=== PATIENT | female | born 1955 | race Caucasian/White ===

== ENCOUNTER 2017-07-18 11:47 | Inpatient (IN) | payer MEDICARE, OTHER ==
[2017-07-18] MEDS ORDERED: SODIUM CHLORIDE 0.9% 500 ML IV STA (12:04)
--- NOTE | 2017-07-18 12:09 | ED ---
Neuro HPI - General Chief Complaint: Neuro Symptoms/Deficit Stated Complaint: Altered Mental Status Time Seen by Provider: 07/18/17 11:47 Source: patient, family, EMS, RN notes reviewed Mode of arrival: EMS Limitations: altered mental status - History of Present Illness Is the patient presenting with stroke symptoms?: No Initial Comments: This is a 7-year-old female history of TIA and CVA also history of a left carotid endarterectomy 3 days ago who was brought in for evaluation for confusion. She apparently woke up confused had difficulty dialing phones in doing normal everyday activities as she normally does there is no noted deficits to her upper or lower extremities and no overt headache. Per EMS she was noted have elevated blood pressure in the 200s over 80s. She probably did not take her medications since being discharged from her surgery. No fevers chills sweats no falls reported - Related Data Home Medications: Home Medications Medication Instructions Recorded Confirmed Adalimumab [Humira] 10 mg SQ DIRECTED 07/18/17 07/18/17 Aspirin 81 mg PO DAILY 07/18/17 07/18/17 Atorvastatin [Lipitor] 40 mg PO HS 07/18/17 07/18/17 Clopidogrel [Plavix] 75 mg PO DAILY 07/18/17 07/18/17 Exenatide [Byetta] 10 mcg SQ BID 07/18/17 07/18/17 FLUoxetine HCL [PROzac] 10 mg PO HS 07/18/17 07/18/17 HYDROcodone/APAP 5-325MG [[place] 1 tab PO Q6HR PRN 07/18/17 07/18/17 5-325] Hydrochlorothiazide [Hydrodiuril] 12.5 mg PO DAILY@0607/18/17 07/18/17 Linagliptin [Tradjenta] 5 mg PO DAILY 07/18/17 07/18/17 Lisinopril [Zestril] 20 mg PO DAILY@0600 07/18/17 07/18/17 Loratadine [Claritin] 10 mg PO DAILY 07/18/17 07/18/17 Pregabalin [Lyrica] 100 mg PO TID 07/18/17 07/18/17 Tolterodine Tartrate [Detrol LA] 4 mg PO DAILY 07/18/17 07/18/17 busPIRone HCl [Buspar] 10 mg PO DAILY 07/18/17 07/18/17 Allergies/Adverse Reactions: Allergies Allergy/AdvReac Type Severity Reaction Status Date / Time No Known Allergies Allergy Verified 07/18/17 12:59 Review of Systems ROS Statement: Those systems with pertinent positive or pertinent negative responses have been documented in the HPI. ROS Other: All systems not noted in ROS Statement are negative. General Exam - General Exam Comments Initial Comments: Is a well-developed well-nourished awake alert but confused patient to date Limitations: altered mental status General appearance: alert, in no apparent distress Head exam: Present: atraumatic, normocephalic, normal inspection Eye exam: Present: normal appearance, PERRL, EOMI. Absent: scleral icterus, conjunctival injection, periorbital swelling ENT exam: Present: normal exam, mucous membranes moist Neck exam: Present: full ROM, other (There is a healing left carotid endarterectomy incision localized erythema with allegra still intact. There is a well-healed right carotid endarterectomy scar noted. No stridor JVD or bruits ). Absent: tenderness, meningismus, lymphadenopathy Respiratory exam: Present: normal lung sounds bilaterally. Absent: respiratory distress, wheezes, rales, rhonchi, stridor Cardiovascular Exam: Present: regular rate, normal rhythm, normal heart sounds. Absent: systolic murmur, diastolic murmur, rubs, gallop, clicks GI/Abdominal exam: Present: soft, normal bowel sounds. Absent: distended, tenderness, guarding, rebound, rigid Rectal exam: Present: deferred Extremities exam: Present: normal inspection, full ROM, normal capillary refill. Absent: tenderness, pedal edema, joint swelling, calf tenderness Back exam: Present: normal inspection Neurological exam: Present: alert, altered, CN II-XII intact Psychiatric exam: Present: normal affect, normal mood Skin exam: Present: warm, dry, intact, normal color. Absent: rash Stroke MDM - Lab Data Result diagrams: 07/18/17 12:03 07/18/17 12:03 Lab Results 07/18/17 07/18/17 07/18/17 Range/Units 12:01 12:03 12:03 WBC 14.3 H (3.8-10.6) k/uL RBC 4.46 (3.80-5.40) m/uL Hgb 13.0 (11.4-16.0) gm/dL Hct 38.1 (34.0-46.0) % MCV 85.6 (80.0-100.0) fL MCH 29.1 (25.0-35.0) pg MCHC 34.0 (31.0-37.0) g/dL RDW 13.0 (11.5-15.5) % Plt Count 211 (150-450) k/uL Neutrophils % 83 % Lymphocytes % 11 % Monocytes % 4 % Eosinophils % 1 % Basophils % 0 % Neutrophils # 11.9 H (1.3-7.7) k/uL Lymphocytes # 1.5 (1.0-4.8) k/uL Monocytes # 0.6 (0-1.0) k/uL Eosinophils # 0.2 (0-0.7) k/uL Basophils # 0.1 (0-0.2) k/uL PT (9.0-12.0) sec INR (<1.2) APTT (22.0-30.0) sec Sodium (137-145) mmol/L Potassium (3.5-5.1) mmol/L Chloride (98-107) mmol/L Carbon Dioxide (22-30) mmol/L Anion Gap mmol/L BUN (7-17) mg/dL Creatinine (0.52-1.04) mg/dL Est GFR (MDRD) Af Amer (>60 ml/min/1.73 sqM) Est GFR (MDRD) Non-Af (>60 ml/min/1.73 sqM) Glucose (74-99) mg/dL POC Glucose (mg/dL) 214 H (75-99) mg/dL POC Glu Freight Conductor ID Alicjaitawais Lisha Calcium (8.4-10.2) mg/dL Total Bilirubin (0.2-1.3) mg/dL AST (14-36) U/L ALT (9-52) U/L Alkaline Phosphatase (38-126) U/L Total Creatine Kinase 42 (30-135) U/L CK-MB (CK-2) 0.2 (0.0-2.4) ng/mL CK-MB (CK-2) Rel Index 0.5 Troponin I 0.034 (0.000-0.034) ng/mL Total Protein (6.3-8.2) g/dL Albumin (3.5-5.0) g/dL 07/18/17 07/18/17 Range/Units 12:03 12:03 WBC (3.8-10.6) k/uL RBC (3.80-5.40) m/uL Hgb (11.4-16.0) gm/dL Hct (34.0-46.0) % MCV (80.0-100.0) fL MCH (25.0-35.0) pg MCHC (31.0-37.0) g/dL RDW (11.5-15.5) % Plt Count (150-450) k/uL Neutrophils % % Lymphocytes % % Monocytes % % Eosinophils % % Basophils % % Neutrophils # (1.3-7.7) k/uL Lymphocytes # (1.0-4.8) k/uL Monocytes # (0-1.0) k/uL Eosinophils # (0-0.7) k/uL Basophils # (0-0.2) k/uL PT 9.9 (9.0-12.0) sec INR 1.0 (<1.2) APTT 22.1 (22.0-30.0) sec Sodium 136 L (137-145) mmol/L Potassium 3.8 (3.5-5.1) mmol/L Chloride 97 L (98-107) mmol/L Carbon Dioxide 27 (22-30) mmol/L Anion Gap 12 mmol/L BUN 10 (7-17) mg/dL Creatinine 0.60 (0.52-1.04) mg/dL Est GFR (MDRD) Af Amer >60 (>60 ml/min/1.73 sqM) Est GFR (MDRD) Non-Af >60 (>60 ml/min/1.73 sqM) Glucose 215 H (74-99) mg/dL POC Glucose (mg/dL) (75-99) mg/dL POC Glu Freight Conductor ID Calcium 9.1 (8.4-10.2) mg/dL Total Bilirubin 0.7 (0.2-1.3) mg/dL AST 23 (14-36) U/L ALT 34 (9-52) U/L Alkaline Phosphatase 111 (38-126) U/L Total Creatine Kinase (30-135) U/L CK-MB (CK-2) (0.0-2.4) ng/mL CK-MB (CK-2) Rel Index Troponin I (0.000-0.034) ng/mL Total Protein 7.2 (6.3-8.2) g/dL Albumin 3.8 (3.5-5.0) g/dL - NIH Stroke Scale 1a. Level of Consciousness: (0) alert 1b. LOC Questions: (0) answers correctly 1c. LOC Commands: (0) performs tasks correctly 2. Best Gaze: (0) normal 3. Visual: (0) no visual loss 4. Facial Palsy: (0) normal symmetrical movement 5a. Motor Arm Left: (0) no drift 5b. Motor Arm Right: (0) no drift 6a. Motor Leg Left: (0) no drift 6b. Motor Leg Right: (0) no drift 7. Limb Ataxia: (0) absent 8. Sensory: (0) normal 9. Best Language: (0) no aphasia 10. Dysarthria: (0) normal 11. Extinction/Inattention: (0) no abnormality - Medical Decision Making Reevaluation is a patient reveals that she is improved actively however the blood pressure remains elevated some this is likely "white coat" syndrome she also however did not take any of her medications including aspirin and Plavix since she was discharged from the hospital. I did discuss the case with Dr. Rebolledo at [facility] did also discuss the case with Dr. Fontanez. The patient will be remaining in this facility and not transferred to [facility]. The patient blood pressure will be better controlled. Male blood pressures are indicated as the automatic cuff is not able to get an accurate read. Patient still has no evidence of any focal deficits NIH stroke scale remained 0. I did discuss the case with Dr. Harley the patient will be admitted. - EKG Data -: EKG Interpreted by Me EKG shows normal: sinus rhythm, axis, intervals, QRS complexes, ST-T waves ( Sinus rhythm rate 77 appear interval 136 QRS duration 84 QT since QTC of 420/ 475 since a normal-appearing EKG.) Past Medical History Past Medical History: CVA/TIA, Diabetes Mellitus, Hyperlipidemia, Hypertension Past Surgical History: Appendectomy, Cholecystectomy, Heart Catheterization, Hysterectomy Additional Past Surgical History / Comment(s): endarterectomy Past Psychological History: Anxiety, Depression Smoking Status: Never smoker Past Alcohol Use History: None Reported Past Drug Use History: Marijuana Course Vital Signs 07/18/17 07/18/17 07/18/17 11:51 13:49 14:32 Temperature 97.6 F Pulse Rate 86 84 83 Respiratory 16 16 18 Rate Blood Pressure 192/113 224/93 O2 Sat by Pulse 98 95 95 Oximetry 07/18/17 07/18/17 07/18/17 15:03 16:13 16:41 Temperature Pulse Rate 88 86 Respiratory 16 Rate Blood Pressure 215/88 208/80 210/68 O2 Sat by Pulse 97 Oximetry 07/18/17 17:25 Temperature Pulse Rate Respiratory Rate Blood Pressure 172/66 O2 Sat by Pulse Oximetry - Reevaluation(s) Reevaluation #1: 07/18/17 17:27 I did reevaluate patient several occasions she is improved with respect her cognition/confusion Disposition Clinical Impression: Confusion, Accelerated hypertension, Noncompliance Disposition: ADMITTED IP TO THIS [facility] Condition: Stable Referrals: Kam Gallegos MD [Primary Care Provider] - 1-2 days
[2017-07-18] MEDS: SODIUM CHLORIDE 0.9% 1,000 ML IV STA ×2 (12:16→12:17)
[2017-07-18 12:21] LABS: Glucose,Whole Blood 214 mg/dL (75-99)
[2017-07-18 12:27] LABS: Basophils # (A) 0.1 k/uL (0-0.2); Basophils % (A) 0 %; Eosinophils # (A) 0.2 k/uL (0-0.7); Eosinophils % (A) 1 %; HCT 38.1 % (34.0-46.0); Lymphocytes # (A) 1.5 k/uL (1.0-4.8); Lymphocytes % (A) 11 %; MCH 29.1 pg (25.0-35.0); MCV 85.6 fL (80.0-100.0); Mean Platelet Volume 7.1; Monocytes # (A) 0.6 k/uL (0-1.0); Monocytes % (A) 4 %; Neutrophils # (A) 11.9 k/uL (1.3-7.7); Neutrophils % (A) 83 %; Platelet Count 211 k/uL (150-450); RBC 4.46 m/uL (3.80-5.40); WBC 14.3 k/uL (3.8-10.6)
[2017-07-18 12:41] LABS: ALT 34 U/L (9-52); AST 23 U/L (14-36); Albumin 3.8 g/dL (3.5-5.0); Alkaline Phosphatase 111 U/L (38-126); Anion Gap 12 mmol/L; Blood Urea Nitrogen 10 mg/dL (7-17); Calcium 9.1 mg/dL (8.4-10.2); Carbon Dioxide 27 mmol/L (22-30); Chloride 97 mmol/L (98-107); Glucose 215 mg/dL (74-99); Potassium 3.8 mmol/L (3.5-5.1); Sodium 136 mmol/L (137-145); Total Bilirubin 0.7 mg/dL (0.2-1.3); Total Protein 7.2 g/dL (6.3-8.2)
--- NOTE | 2017-07-18 12:46 | CT ---
EXAMINATION TYPE: CT brain wo con DATE OF EXAM: 07/18/2017 COMPARISON: Previous study dated 07/17/2011. HISTORY: Altered mental status CT DLP: 988.40 mGycm Automated exposure control for dose reduction was used. FINDINGS: There is evidence of previous infarction involving the right frontal and parietal lobes, unchanged fr om previous. Central structures are midline. There is no evidence of hydrocephalus. No acute focal lesion, mass ef fect or midline shift is seen. I do not see evidence of intracranial blood. There is mucoperiosteal thickening involving the sphenoid sinuses bilaterally. The remainder the para nasal sinuses and mastoids are clear. No depressed skull fracture is seen. IMPRESSION: 1. NO ACUTE INTRACRANIAL ABNORMALITY. 2. EVIDENCE OF PREVIOUS RIGHT FRONTAL AND RIGHT PARIETAL INFARCTS. 3. CHRONIC MUCOPERIOSTEAL THICKENING INVOLVING THE SPHENOID SINUSES BILATERALLY.
[2017-07-18 12:51] LABS: Partial Thromboplastin Time 22.1 sec (22.0-30.0); Prothrombin Time 9.9 sec (9.0-12.0)
--- NOTE | 2017-07-18 12:55 | XR ---
EXAMINATION TYPE: XR chest 2V DATE OF EXAM: 07/18/2017 HISTORY: altered mental status. REFERENCE: NONE. FINDINGS: The heart is upper limits of normal in size. The lungs are clear. Pleural spaces are clear. IMPRESSION: BORDERLINE CARDIOMEGALY.
[2017-07-18 13:00] LABS: Creatine Kinase MB 0.2 ng/mL (0.0-2.4); Troponin I 0.034 ng/mL (0.000-0.034)
[2017-07-18] MEDS ORDERED: ENALAPRILAT 1.25 MG/ML 1 ML VIAL IVP STA (14:28)
[2017-07-18] MEDS ORDERED: LABETALOL 5 MG/ML VIAL MDV IVP STA (16:27)
[2017-07-18] MEDS ORDERED: CLOPIDOGREL 75 MG TAB PO STA (17:03)
[2017-07-18] MEDS ORDERED: ASPIRIN 81 MG PO STA (17:03)
[2017-07-18] MEDS ORDERED: hydrALAZINE HCL 20 MG/ML 1 ML VIAL IVP STA (17:04)
[2017-07-18] MEDS ORDERED: NALOXONE 0.4 MG/ML 1 ML VIAL IV PRN (17:34)
[2017-07-18] MEDS ORDERED: ACETAMINOPHEN TAB 325 MG TAB PO PRN (17:34)
[2017-07-18] MEDS ORDERED: HYDROcodone/APAP 5-325MG 1 EACH TAB PO PRN (17:36)
[2017-07-18 18:27] VITALS: BMI 44.5
[2017-07-18] MEDS: SODIUM CHLORIDE 0.9% 1,000 ML IV SCH (18:34)
[2017-07-18 18:35] VITALS: RESP 18
[2017-07-18] MEDS: PREGABALIN 100 MG CAP PO SCH (20:17)
[2017-07-18] MEDS: EXENATIDE 10 MCG SQ SCH (20:36)
[2017-07-18] MEDS ORDERED: FLUoxetine HCL 10 MG CAP PO SCH (21:00)
[2017-07-18] MEDS ORDERED: ATORVASTATIN 40 MG TAB PO SCH (21:00)
[2017-07-18 21:01] LABS: Glucose,Whole Blood 239 mg/dL (75-99)
[2017-07-18] MEDS ORDERED: traZODone HCL 100 MG TAB PO PRN (21:49)
[2017-07-18] MEDS: INSULIN ASPART 100 UNIT/ML 1 ML 10 ML VIAL SQ SCH (23:00)
[2017-07-19 02:06] LABS: Glucose,Whole Blood 186 mg/dL (75-99)
[2017-07-19 05:56] LABS: Glucose,Whole Blood 181 mg/dL (75-99)
[2017-07-19] MEDS ORDERED: HYDROCHLOROTHIAZIDE 12.5 MG CAP PO SCH (06:00)
[2017-07-19] MEDS ORDERED: LISINOPRIL 20 MG TAB PO SCH (06:00)
[2017-07-19] MEDS: INSULIN ASPART 100 UNIT/ML 1 ML 10 ML VIAL SQ SCH ×3 (06:18→17:25)
[2017-07-19] MEDS: EXENATIDE 10 MCG SQ SCH (08:59)
[2017-07-19] MEDS ORDERED: OXYBUTYNIN XL 5 MG TAB.ER.24 PO SCH (09:00)
[2017-07-19] MEDS ORDERED: busPIRone HCl 10 MG TAB PO SCH (09:00)
[2017-07-19] MEDS ORDERED: LINAGLIPTIN 5 MG TABLET PO SCH (09:00)
[2017-07-19] MEDS ORDERED: LORATADINE 10 MG TAB PO SCH (09:00)
[2017-07-19] MEDS ORDERED: CLOPIDOGREL 75 MG TAB PO SCH (09:00)
[2017-07-19] MEDS ORDERED: ASPIRIN 81 MG PO SCH (09:00)
[2017-07-19] MEDS: PREGABALIN 100 MG CAP PO SCH ×2 (09:02→15:19)
[2017-07-19 11:47] LABS: Glucose,Whole Blood 256 mg/dL (75-99)
--- NOTE | 2017-07-19 12:11 | P.HPIM ---
History of Present Illness H&P Date: 07/18/17 Chief Complaint: Acute confusion HISTORY OF PRESENT ILLNESS: 61-year-old female patient of Dr. Kam Gallegos with chronic stable medical conditions include CVA/TIA, diabetes mellitus, hyperlipidemia, hypertension, left carotid endarterectomy on 07/15/2017, presented to the emergency department to be evaluated for acute confusion. Had endarterectomy as mentioned previously was discharged on , 07/16/2017, on Thursday patient was sleeping most of the day, missed most of her medications, and did not eat much at all. Was confused unable to operate her cellular phone, and family found that she was not her usual self, seeming more forgetful and disoriented. Family was concerned that there was a problem with her recent procedure. EMS was called and found the patient to have a blood pressure in the 200s and was subsequently brought in on Thursday for further evaluation of acute confusion and accelerated hypertension. REVIEW OF SYSTEMS GEN.: [ Tired appearing ] EYES: [Transient blurred vision] HEENT: [None] NECK: [Recent left carotid endarterectomy] RESPIRATORY: [Some shortness of breath with activity] CARDIOVASCULAR: [None] GASTROINTESTINAL: [None] GENITOURINARY: [None] MUSCULOSKELETAL: [Back pain, generalized pain] LYMPHATICS: [None] HEMATOLOGICAL: [None] PSYCHIATRY: [Anxiety and depression] NEUROLOGICAL: [Numbness and tingling to bilateral fingers and feet.] PAST MEDICAL HISTORY Past medical history: CVA/TIA, diabetes mellitus, hyperlipidemia, hypertension, Past surgical history: Appendectomy, cholecystectomy, heart catheterization, hysterectomy, carotid endarterectomy Past psychological history: Anxiety and depression SOCIAL HISTORY: Additional psychological/social history: None Smoking use history: Never Alcohol use history: Denies Drug use history: Daily marijuana use Marital status: Living situation: Lives alone 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 ALLERGIES: NO KNOWN ALLERGIES HOME MEDICATION: Trazodone 100 mg by mouth at bedtime when necessary Pregabalin 100 mg by mouth 3 times a day Linagliptin 5 mg by mouth daily Lisinopril 20 mg by mouth daily Hydrocodone 5-325 mg 1 tablet by mouth every 6 hours when necessary Prozac 10 mg by mouth at bedtime Clopidogrel 75 mg by mouth daily Hydrochlorothiazide 12.5 mg by mouth daily Atorvastatin 40 mg by mouth at bedtime Detrol LA 4 mg by mouth daily Tolerated diet 10 mg by mouth daily She marital 10 mg subcu as directed BuSpar 10 mg by mouth daily Byetta 1010 g subcu twice a day Aspirin 81 mg by mouth daily VITAL SIGNS: [Temperature 98.6, pulse 88, respiratory rate 18, blood pressure 160/69, oxygen saturation 96% on room air.. BMI 43.6] GENERAL: [well built, sitting up, comfortable]. EYES: [Pupils equal. Conjunctiva airam]l. HEENT: [External appearance of nose and ears normal, oral cavity grossly normal] . NECK: [JVD not raised; masses not palpable]. HEART: [First and second heart sounds are normal; no edema]. LUNGS:[ Respiratory rate normal; clear to auscultation]. ABDOMEN: [Soft, nontender, liver spleen not palpable, no masses palpable]. LYMPHATICS: [No lymph nodes palpable in the axilla and neck]. PSYCH: [Alert and oriented x3; mood and affect airam]l. NEUROLOGICAL: [Cranial nerves grossly intact; no facial asymmetry, power and sensation grossly intact]. INTEGUMENT: Left neck with carotid scar that's healing well. INVESTIGATIONS: White blood cell count 14.3, sodium 136, chloride 97, Accu-Cheks noted. Chest x-ray: Borderline cardiomegaly CT of the brain: No acute intracranial abnormality, evidence of previous right frontal and right parietal infarcts, chronic mucoperiosteal thickening involving the sphenoid sinuses bilaterally ASSESSMENT: -Acute delirium in a patient who had a recent left carotid endarterectomy, and missed some of her meals medications and fluids as well as due to uncontrolled pressure -Leukocytosis likely secondary to recent procedure, no fever and no white count no evidence of infection. -Coronary artery disease and patient with a history of stent placement -Diabetes type 2 -Hyperlipidemia -Essential hypertension, uncontrolled -Morbid obesity body mass index 43.6 -Anxiety depression not otherwise specified PLAN: Home medications reordered, serial neuro checks, tight blood pressure control. Plan of care discussed at the bedside with patient, she is in agreement. We'll follow closely. [employer] WORKER STATEMENT: Patient was seen and examined by nurse practitioner Divya Mena and all elements of the case were discussed with attending Dr. Harley. Past Medical History Past Medical History: CVA/TIA, Diabetes Mellitus, Hyperlipidemia, Hypertension History of Any Multi-Drug Resistant Organisms: None Reported Past Surgical History: Appendectomy, Cholecystectomy, Heart Catheterization, Hysterectomy Additional Past Surgical History / Comment(s): endarterectomy; bone spurs removedx2 Past Anesthesia/Blood Transfusion Reactions: No Reported Reaction Past Psychological History: Anxiety, Depression Smoking Status: Never smoker Past Alcohol Use History: None Reported Past Drug Use History: Marijuana Additional Drug Use History / Comment(s): uses marijuana daily Medications and Allergies Home Medications Medication Instructions Recorded Confirmed Type Adalimumab [Humira] 10 mg SQ DIRECTED 07/18/17 07/18/17 History Aspirin 81 mg PO DAILY 07/18/17 07/18/17 History Atorvastatin [Lipitor] 40 mg PO HS 07/18/17 07/18/17 History Clopidogrel [Plavix] 75 mg PO DAILY 07/18/17 07/18/17 History Exenatide [Byetta] 10 mcg SQ BID 07/18/17 07/18/17 History FLUoxetine HCL [PROzac] 10 mg PO HS 07/18/17 07/18/17 History HYDROcodone/APAP 5-325MG [[place] 1 tab PO Q6HR PRN 07/18/17 07/18/17 History 5-325] Hydrochlorothiazide [Hydrodiuril] 12.5 mg PO DAILY@0600 07/18/17 07/18/17 History Linagliptin [Tradjenta] 5 mg PO DAILY 07/18/17 07/18/17 History Loratadine [Claritin] 10 mg PO DAILY 07/18/17 07/18/17 History Pregabalin [Lyrica] 100 mg PO TID 07/18/17 07/18/17 History Tolterodine Tartrate [Detrol LA] 4 mg PO DAILY 07/18/17 07/18/17 History busPIRone HCl [Buspar] 10 mg PO DAILY 07/18/17 07/18/17 History traZODone HCL [Desyrel] 100 mg PO HS PRN 07/18/17 07/18/17 History Lisinopril-Hctz 20-12.5 mg 1 tab PO BID #60 tab 07/19/17 Rx [Zestoretic 20-12.5] Allergies Allergy/AdvReac Type Severity Reaction Status Date / Time No Known Allergies Allergy Verified 07/18/17 12:59 Physical Exam Vitals: Vital Signs Temp Pulse Pulse Resp BP BP Pulse Ox 07/18/17 18:34 98.6 F 88 18 168/69 96 07/18/17 17:25 172/66 07/18/17 16:41 210/68 07/18/17 16:13 86 16 208/80 97 07/18/17 15:03 88 215/88 07/18/17 14:32 83 18 224/93 95 07/18/17 13:49 84 16 95 07/18/17 11:51 97.6 F 86 16 192/113 98 Intake and Output 07/18/17 07/18/17 07/18/17 06:59 14:59 22:59 Other: Weight 103.419 kg 103.419 kg Patient Weight 07/19/17 06:59 Weight 103.419 kg Results CBC & Chem 7: 07/18/17 12:03 07/18/17 12:03 Labs: Abnormal Lab Results - Last 24 Hours (Table) 07/18/17 07/18/17 07/18/17 Range/Units 12:01 12:03 12:03 WBC 14.3 H (3.8-10.6) k/uL Neutrophils # 11.9 H (1.3-7.7) k/uL Sodium 136 L (137-145) mmol/L Chloride 97 L (98-107) mmol/L Glucose 215 H (74-99) mg/dL POC Glucose (mg/dL) 214 H (75-99) mg/dL 07/18/17 Range/Units 20:59 WBC (3.8-10.6) k/uL Neutrophils # (1.3-7.7) k/uL Sodium (137-145) mmol/L Chloride (98-107) mmol/L Glucose (74-99) mg/dL POC Glucose (mg/dL) 239 H (75-99) mg/dL Thrombosis Risk Factor Assmnt - Choose All That Apply Each Factor Represents 1 point: Age 41-60 years, Obesity (BMI >25) Each Risk Factor Represents 2 Points: Major surgery Thrombosis Risk Factor Assessment Total Risk Factor Score: 4 Thrombosis Risk Factor Assessment Level: Moderate Risk
[2017-07-19] MEDS: SODIUM CHLORIDE 0.9% 1,000 ML IV SCH (15:44)
[2017-07-19] MEDS ORDERED: LISINOPRIL-HCTZ 20-12.5 MG 1 EACH TAB PO STA (15:51)
[2017-07-19 17:09] VITALS: BP 156/83; PULSE 79; TEMP 97.5
[2017-07-19 17:24] LABS: Glucose,Whole Blood 130 mg/dL (75-99)
--- NOTE | 2017-07-19 17:28 | DS ---
DISCHARGE SUMMARY DATE OF ADMISSION: 07/18/17. DATE OF DISCHARGE: 07/19/17. FINAL DIAGNOSES: 1. Acute delirium/metabolic encephalopathy from uncontrolled blood pressure from patient having missed taking medications. 2. Leukocytosis likely reactive to recent procedure. Clinically no evidence of infection. 3. Coronary artery disease with prior history of stent. 4. Diabetes mellitus type 2. 5. Hyperlipidemia. 6. Essential hypertension uncontrolled. 7. Morbid obesity BMI 43.6. 8. Anxiety, depression, not otherwise specified. HOSPITAL COURSE: This is a pleasant lady who was discharged after a carotid endarterectomy on July 16, 2017 from [facility]. The patient is rather sleepy and did not take her medications. EMS was called after she was slightly confused. Blood pressure is running up to 200 systolic. Presented to the ER here. No focal signs were present. Patient is put back on blood pressure medications. Today the last blood pressure recorded was 162/74. The patient's Prinivil and hydrochlorothiazide dose is being doubled. She getting a pill before she is leaving. Care was discussed in detail with the patient. The patient is AO x3. The patient is told the importance of taking her medications and keeping blood pressure down. The patient should see a dietitian for weight loss measures and/or her family doctor. The patient's CT scan of the brain was unremarkable. EXAM: Lungs are clear. Cardiovascular 1st and 2nd sounds normal. Incision on neck healing well. DISCHARGE MEDICATIONS: 1. Humira 10 mg subcu as directed. 2. Aspirin 81 mg daily. 3. Lipitor 40 mg q.h.s. 4. Plavix 75 mg a day. 5. Byetta 10 mg subcu b.i.d. 6. Prozac 10 mg p.o. q.h.s. 7. [place] 5 one tab q.6h p.r.n. 8. Hydrochlorothiazide discontinued. 9. Tradjenta 5 mg p.o. daily. 10.Claritin 10 mg p.o. daily. 11. 100 mg p.o. t.i.d. 12.Detrol LA 4 mg p.o. daily. 13.BuSpar 10 mg p.o. daily. 14.Desyrel 100 mg q.h.s. p.r.n. 15.Zestoretic 20/12.5 one tab p.o. b.i.d. FOLLOW UP: With Dr. Gallegos in 2 days. Patient to keep a close eye on the blood pressure. Patient to follow up with her vascular surgeon. Discussion and discharge planning more than 35 minutes. MMDEVANL / IJN: [id number] /
--- NOTE | 2017-07-22 10:34 | CDI ---
Last Revision, June 2017 Documentation Clarification Form Date: 07/22/2017 10:27:00 AM From: Shahla Jackson Phone: If you have a question regarding this query, please contact Claudia Goodwin Electrical Logger at [phone]. Admit Date: 07/19/2017 1:15:00 PM Patient Name: Radha Amanda Visit Number: [id number] Discharge Date: ATTENTION: The Clinical Documentation Specialists (CDI) and [facility] Coding Staff appreciate your assistance in clarifying documentation. Please respond to the clarification below the line at the bottom and electronically sign. The CDI & [facility] Coding staff will review the response and follow-up if needed. Please note: Queries are made part of the Legal Health Record. If you have any questions, please contact the author of this message via ITS. Dr. Janusz Harley Uncontrolled hypertension is documented in your discharge summary. BP on day of admission: 192/113, 224/93, 215/88, 208/80, 210/68, 182/66 Please specify the type of uncontrolled hypertension such as: Crisis Emergency Urgency Other Clinically unable to further specify Unknown Please continue to document in your progress notes and discharge summary in order to capture severity of illness and risk of mortality. Include clinical findings that support your diagnosis. hypertensive urgency/encepapathy , present on admission MTDD
== END 2017-07-19 17:58 | disposition home or self-care (01) | DRG 304 ==
LOC: EC 11:47 → 6SEL 17:37 → OBSVTOIN 07-19 13:15
PROVIDERS: ADMIT Hospitalist; ATTEND Hospitalist
DX: I16.0 Hypertensive urgency (principal); G93.41 Metabolic encephalopathy; E66.01 Morbid (severe) obesity due to excess calories; D72.829 Elevated white blood cell count, unspecified; E11.9 Type 2 diabetes mellitus without complications; E78.5 Hyperlipidemia, unspecified; Z68.41 Body mass index [BMI] 40.0-44.9, adult; I10 Essential (primary) hypertension; F41.8 Other specified anxiety disorders; I25.10 Atherosclerotic heart disease of native coronary artery without angina pectoris; F32.9 Major depressive disorder, single episode, unspecified; Z90.710 Acquired absence of both cervix and uterus; Z86.73 Personal history of transient ischemic attack (TIA), and cerebral infarction without residual deficits; Z79.02 Long term (current) use of antithrombotics/antiplatelets; Z79.82 Long term (current) use of aspirin; Z79.84 Long term (current) use of oral hypoglycemic drugs; Z79.899 Other long term (current) drug therapy; Z95.5 Presence of coronary angioplasty implant and graft; Z90.49 Acquired absence of other specified parts of digestive tract; Z91.19 Patient's noncompliance with other medical treatment and regimen
CPT/HCPCS: 36415; 70450; 71046; 80053; 82550; 82553; 84484; 85025; 85610; 85730; 93005; 96361; 96374; 96375; 99285

== ENCOUNTER → 2017-09-08 | Outpatient (CLI) | payer MEDICARE, OTHER ==
--- NOTE | 2017-09-08 13:34 | MR ---
EXAMINATION TYPE: MR brain wo/w con DATE OF EXAM: 09/08/2017 COMPARISON: Correlation CT brain 07/18/2017 and carotid ultrasound 03/08/2015. HISTORY: 62-year-old female with history of Stroke. TECHNIQUE: Multiplanar, multisequence images of the brain and brainstem were acquired before and aft er administration of 10 mL IV Gadavist. Diffusion weighted imaging is performed. FINDINGS: No evidence for acute infarction, hemorrhage, mass, mass effect, midline shift, herniation, effacemen t of basal cisterns, or extra-axial fluid collection. The ventricles and sulci are age-appropriate. The visualized upper cervical, petrous and proximal cavernous segments of the right internal carotid artery show either limited or absent flow void. There is some enhancement seen along this vessel on p ostcontrast series. Otherwise, major intracranial flow voids are intact. Redemonstrated areas of encephalomalacia in the posterior right frontal lobe and posterior right shonda etal lobe. There is surrounding increased T2 signal compatible with gliosis. Additional area of corti marcos gliosis measuring 1.4 cm is present along the anterolateral right frontal lobe just adjacent. Midline structures demonstrate normal morphology. The craniocervical junction is normal. Post contrast images demonstrate no evidence of pathologic enhancement. Dural venous sinuses are pat ent. Trace mucosal thickening ethmoid air cells and right maxillary sinus. Leftward nasal septal deviation . IMPRESSION: 1. Absent or limited right ICA flow void up to the proximal cavernous segment. Findings could reflect a high-grade proximal ICA stenosis or occlusion. Correlate with prior workup. This is likely chronic given findings on the carotid ultrasound of 03/08/2015. 2. Old posterior right frontal and posterior right parietal infarcts. No acute intracranial body seen .
== END | disposition home or self-care (01) ==
LOC: RADMRIMAIN 11:46
PROVIDERS: ATTEND Pediatrics
DX: Z09 Encounter for follow-up examination after completed treatment for conditions other than malignant neoplasm (principal); Z86.73 Personal history of transient ischemic attack (TIA), and cerebral infarction without residual deficits
CPT/HCPCS: 70553; A9581

== ENCOUNTER → 2017-09-17 | Outpatient (CLI) | payer MEDICARE, OTHER ==
--- NOTE | 2017-09-17 16:57 | CONS ---
CONSULTATION DATE OF SERVICE: 09/17/2017 62-year-old lady has [facility] for obstructive sleep apnea- hypopnea syndrome. HISTORY OF PRESENT ILLNESS/SLEEP-WAKE EVALUATION: The patient has been diagnosed with obstructive sleep apnea in 2002, was started on treatment with CPAP, used it for several years and then stopped using equipment because did not feel comfortable with that. Did not sleep well with that. Presently her sleep schedule from 11:00 p.m. to 11:00 am. Sometimes she has problem with falling asleep. She sleeps in different positions. No TV in bedroom. She wakes up from sleep around 3 times with 3 episodes of nocturia. She also has dry mouth and heartburn during the sleep. In the morning she wakes up tired, has difficulties to pay attention, falling asleep during the day. Worry about her sleep. She has problem with memory, concentration, depression, anxiety, sexual dysfunction. [place] Sleepiness Scale is 4. PAST MEDICAL HISTORY: Positive for hypertension, 2 strokes with the last one in 2005 without any significant residual deficit. PAST SURGICAL HISTORY: Cholecystectomy, appendectomy, bilateral carotid artery surgery with stent insertions. MEDICATIONS: Trazodone, Celexa, Claritin, lisinopril, Detrol. The patient has 1 medication which she does not remember for the blood pressure. Another medication is hydrochlorothiazide. SOCIAL HISTORY: Negative for smoking or using alcohol. FAMILY HISTORY: Hypertension, diabetes, snoring. REVIEW OF SYSTEMS: No chest pain. No shortness of breath. No headache. No feeling of any weakness in the body. No dizziness. PHYSICAL EXAM: GENERAL: 62-year-old lady without distress. VITAL SIGNS: BP was checked several times. On the left arm 193/58. HR 72, RR 16, height 5 foot 1, weight 233.4, temperature 98, oxygen saturation room air 95%. HEENT: PERRLA, EOMI, evaluation of oropharynx showed extremely low position of soft palate. Mallampati IV. NECK: Supple, no JVD. Thyroid is not palpable. LUNGS: Clear to percussion and to auscultation. Good air exchange. No wheezing or rhonchi. HEART: S1, S2 regular. No murmurs, gallops, or rubs. ABDOMEN: Obese. Soft and nontender. Bowel sounds are present. No organomegaly appreciated. EXTREMITIES: No clubbing or cyanosis. ACCOUNT RELATIONSHIP MANAGER: Awake, alert, and oriented X3. Cranial nerves 2 to 7 intact. There is no fasciculation or atrophy. noted. No focal deficits observed. IMPRESSION: 1. Snoring, witnessed episodes of stopped breathing during the sleep in the hospital, extremely low position of soft palate, wide neck and history of obstructive sleep apnea in the past. Obstructive sleep apnea-hypopnea syndrome. 2. Obesity, BMI 44.0. 3. Hypertension, not in good control with 2 medications. 4. Allergy. 5. History of stroke x2. 6. Status post carotid artery surgery with stent insertion bilaterally. 7. Status post cholecystectomy. 8. Status post appendectomy. PLAN: 1. Polysomnography for evaluation of patient's breathing during sleep. 2. CPAP/BiPAP titration if sleep study confirms obstructive sleep apnea-hypopnea syndrome. 3. Preferable position during sleep on the side. 4. No driving if patient feels any sleepiness. Patient is aware of civil and criminal liability for unsafe driving. 5. I will see patient for follow up visit to explain results of testing and following plan. Thank you very much for referring this patient for consultation. Sincerely, Gavino Kemp MD, PhD, FAASM Diplomat of [employer] [facility] [place] MMODL / ATIFN: [id number] /
== END | disposition home or self-care (01) ==
LOC: SLEEP 14:57
PROVIDERS: ATTEND Internal Medicine
DX: G47.33 Obstructive sleep apnea (adult) (pediatric) (principal); E66.9 Obesity, unspecified; I10 Essential (primary) hypertension; T78.40XA Allergy, unspecified, initial encounter; Z95.5 Presence of coronary angioplasty implant and graft; Z90.49 Acquired absence of other specified parts of digestive tract; Z68.41 Body mass index [BMI] 40.0-44.9, adult; Z86.69 Personal history of other diseases of the nervous system and sense organs; Z79.899 Other long term (current) drug therapy
CPT/HCPCS: 99211

== ENCOUNTER 2017-10-13 19:53 | Inpatient (IN) | payer MEDICARE, OTHER ==
[2017-10-13 20:00] LABS: Glucose,Whole Blood 226 mg/dL (75-99)
[2017-10-13] MEDS ORDERED: SODIUM CHLORIDE 0.9% 1,000 ML IV STA (20:11)
--- NOTE | 2017-10-13 20:14 | ED ---
General Adult HPI - General Chief complaint: Neuro Symptoms/Deficit Stated complaint: WEAKNESS Time Seen by Provider: 10/13/17 20:05 Source: patient, EMS, RN notes reviewed Mode of arrival: EMS Limitations: no limitations - History of Present Illness Initial comments: Patient is a pleasant 62-year-old female presenting to the emergency Department with complaints of generalized weakness. Onset of symptoms was this morning and has been consistent all day. Patient had similar symptoms a couple months ago with unclear etiology. Patient feels weak all over, somewhat more so on the legs. Patient does have a history of sciatica however is not bothering her much at this time. No otherwise lower back pain. Patient has been fatigued and sleeping all day. Patient does feel achy all over. No isolated area of weakness. No confusion. No fevers. Mild cough. Patient did have a couple episodes of near falls however never fell. - Related Data Home Medications Medication Instructions Recorded Confirmed Adalimumab [Humira] 10 mg SQ Q14D 07/18/17 10/13/17 Atorvastatin [Lipitor] 40 mg PO HS 07/18/17 10/13/17 Clopidogrel [Plavix] 75 mg PO DAILY 07/18/17 10/13/17 Exenatide [Byetta] 10 mcg SQ BID 07/18/17 10/13/17 FLUoxetine HCL [PROzac] 10 mg PO HS 07/18/17 10/13/17 HYDROcodone/APAP 5-325MG [Penelope 1 tab PO Q6HR PRN 07/18/17 10/13/17 5-325] Linagliptin [Tradjenta] 5 mg PO DAILY 07/18/17 10/13/17 Loratadine [Claritin] 10 mg PO DAILY 07/18/17 10/13/17 Pregabalin [Lyrica] 100 mg PO TID 07/18/17 10/13/17 Tolterodine Tartrate [Detrol LA] 4 mg PO DAILY 07/18/17 10/13/17 busPIRone HCl [Buspar] 10 mg PO DAILY 07/18/17 10/13/17 traZODone HCL [Desyrel] 100 mg PO HS PRN 07/18/17 10/13/17 Previous Rx's Medication Instructions Recorded Lisinopril-Hctz 20-12.5 mg 1 tab PO BID #60 tab 07/19/17 [Zestoretic 20-12.5] Allergies Allergy/AdvReac Type Severity Reaction Status Date / Time No Known Allergies Allergy Verified 10/13/17 20:17 Review of Systems ROS Statement: Those systems with pertinent positive or pertinent negative responses have been documented in the HPI. ROS Other: All systems not noted in ROS Statement are negative. Constitutional: Denies: fever, chills Eyes: Denies: eye pain ENT: Denies: ear pain, throat pain, congestion Respiratory: Reports: cough. Denies: dyspnea Cardiovascular: Denies: chest pain Endocrine: Reports: fatigue Gastrointestinal: Denies: abdominal pain Genitourinary: Denies: dysuria Musculoskeletal: Denies: back pain Skin: Denies: rash Neurological: Reports: weakness. Denies: headache, numbness, paresthesias, confusion Past Medical History Past Medical History: CVA/TIA, Diabetes Mellitus, Hyperlipidemia, Hypertension History of Any Multi-Drug Resistant Organisms: None Reported Past Surgical History: Appendectomy, Cholecystectomy, Heart Catheterization, Hysterectomy Additional Past Surgical History / Comment(s): endarterectomy; bone spurs removedx2 Past Anesthesia/Blood Transfusion Reactions: No Reported Reaction Past Psychological History: Anxiety, Depression Smoking Status: Never smoker Past Alcohol Use History: None Reported Past Drug Use History: Marijuana General Exam Limitations: no limitations General appearance: alert, in no apparent distress Head exam: Present: atraumatic, normocephalic Eye exam: Present: normal appearance, PERRL, EOMI. Absent: nystagmus ENT exam: Present: normal oropharynx Neck exam: Present: normal inspection. Absent: tenderness, meningismus Respiratory exam: Present: normal lung sounds bilaterally Cardiovascular Exam: Present: regular rate, normal rhythm GI/Abdominal exam: Present: soft. Absent: tenderness Extremities exam: Present: normal inspection, full ROM. Absent: tenderness, pedal edema, calf tenderness Back exam: Present: normal inspection. Absent: tenderness, vertebral tenderness Neurological exam: Present: alert, oriented X3, CN II-XII intact Expanded Neurological exam: Present: protecting the airway Patient oriented to: Present: person, place, time Speech: Present: fluid speech Cranial nerves: EOM's Intact: Normal, Facial Sensation: Normal Cerebellar function: Finger to Nose: Normal Sensory exam: Upper Extremity Light Touch: Normal, Lower Extremity Light Touch: Normal Motor strength exam: RUE: 5, LUE: 5, RLE: 4, LLE: 4 Eye Response: (4) open spontaneously Motor Response: (6) obeys commands Verbal Response: (5) oriented Psychiatric exam: Present: normal affect, normal mood Skin exam: Present: normal color Course Vital Signs 10/13/17 10/13/17 10/13/17 20:05 20:20 20:36 Temperature 97.5 F L Pulse Rate 63 58 L 59 L Respiratory 18 18 18 Rate Blood Pressure 196/79 213/86 173/70 O2 Sat by Pulse 93 L 99 99 Oximetry 10/13/17 20:38 Temperature Pulse Rate 60 Respiratory 18 Rate Blood Pressure 165/70 O2 Sat by Pulse 99 Oximetry EKG Findings - EKG Comments: EKG Findings:: normal sinus rhythm 60. OH 150. QRS 84. QT 476. QTc 476. Normal axis. Normal QRS. No acute ST change. Medical Decision Making - Medical Decision Making Patient reevaluated and unchanged. Nurse states patient has had difficulty with near falls trying to use the bathroom. Case was discussed in detail with practitioner Patito onofre, who will admit for Dr. Yeh, covering for Dr. martins, who admits for Dr. Gallegos. - Lab Data Result diagrams: 10/13/17 20:05 10/13/17 20:05 Lab Results 10/13/17 10/13/17 10/13/17 Range/Units 19:57 20:05 20:05 WBC 12.2 H (3.8-10.6) k/uL RBC 5.03 (3.80-5.40) m/uL Hgb 14.1 (11.4-16.0) gm/dL Hct 40.9 (34.0-46.0) % MCV 81.4 (80.0-100.0) fL MCH 28.1 (25.0-35.0) pg MCHC 34.5 (31.0-37.0) g/dL RDW 13.4 (11.5-15.5) % Plt Count 215 (150-450) k/uL Neutrophils % 69 % Lymphocytes % 20 % Monocytes % 5 % Eosinophils % 4 % Basophils % 0 % Neutrophils # 8.4 H (1.3-7.7) k/uL Lymphocytes # 2.4 (1.0-4.8) k/uL Monocytes # 0.5 (0-1.0) k/uL Eosinophils # 0.5 (0-0.7) k/uL Basophils # 0.0 (0-0.2) k/uL PT (9.0-12.0) sec INR (<1.2) APTT (22.0-30.0) sec Sodium (137-145) mmol/L Potassium (3.5-5.1) mmol/L Chloride (98-107) mmol/L Carbon Dioxide (22-30) mmol/L Anion Gap mmol/L BUN (7-17) mg/dL Creatinine (0.52-1.04) mg/dL Est GFR (CKD-EPI)AfAm (>60 ml/min/1.73 sqM) Est GFR (CKD-EPI)NonAf (>60 ml/min/1.73 sqM) Glucose (74-99) mg/dL POC Glucose (mg/dL) 226 H (75-99) mg/dL POC Glu Cyber Instructor Shahla Hunt Calcium (8.4-10.2) mg/dL Magnesium (1.6-2.3) mg/dL Total Bilirubin (0.2-1.3) mg/dL AST (14-36) U/L ALT (9-52) U/L Alkaline Phosphatase (38-126) U/L Total Creatine Kinase 48 (30-135) U/L CK-MB (CK-2) 0.4 (0.0-2.4) ng/mL CK-MB (CK-2) Rel Index 0.8 Troponin I <0.012 (0.000-0.034) ng/mL Total Protein (6.3-8.2) g/dL Albumin (3.5-5.0) g/dL TSH (0.465-4.680) mIU/L Free T4 (0.78-2.19) ng/dL Free T3 pg/mL (2.8-5.3) pg/ml 10/13/17 10/13/17 Range/Units 20:05 20:05 WBC (3.8-10.6) k/uL RBC (3.80-5.40) m/uL Hgb (11.4-16.0) gm/dL Hct (34.0-46.0) % MCV (80.0-100.0) fL MCH (25.0-35.0) pg MCHC (31.0-37.0) g/dL RDW (11.5-15.5) % Plt Count (150-450) k/uL Neutrophils % % Lymphocytes % % Monocytes % % Eosinophils % % Basophils % % Neutrophils # (1.3-7.7) k/uL Lymphocytes # (1.0-4.8) k/uL Monocytes # (0-1.0) k/uL Eosinophils # (0-0.7) k/uL Basophils # (0-0.2) k/uL PT 9.9 (9.0-12.0) sec INR 1.0 (<1.2) APTT 19.8 L (22.0-30.0) sec Sodium 138 (137-145) mmol/L Potassium 4.9 (3.5-5.1) mmol/L Chloride 100 (98-107) mmol/L Carbon Dioxide 24 (22-30) mmol/L Anion Gap 14 mmol/L BUN 19 H (7-17) mg/dL Creatinine 0.80 (0.52-1.04) mg/dL Est GFR (CKD-EPI)AfAm >90 (>60 ml/min/1.73 sqM) Est GFR (CKD-EPI)NonAf 80 (>60 ml/min/1.73 sqM) Glucose 236 H (74-99) mg/dL POC Glucose (mg/dL) (75-99) mg/dL POC Glu Cyber Instructor ID Calcium 9.2 (8.4-10.2) mg/dL Magnesium 2.1 (1.6-2.3) mg/dL Total Bilirubin 0.7 (0.2-1.3) mg/dL AST 47 H (14-36) U/L ALT 27 (9-52) U/L Alkaline Phosphatase 106 (38-126) U/L Total Creatine Kinase (30-135) U/L CK-MB (CK-2) (0.0-2.4) ng/mL CK-MB (CK-2) Rel Index Troponin I (0.000-0.034) ng/mL Total Protein 7.6 (6.3-8.2) g/dL Albumin 3.7 (3.5-5.0) g/dL TSH 3.620 (0.465-4.680) mIU/L Free T4 1.27 (0.78-2.19) ng/dL Free T3 pg/mL 3.8 (2.8-5.3) pg/ml Disposition Clinical Impression: Leg weakness Disposition: ADMITTED IP TO THIS HOSP Referrals: Kam Gallegos MD [Primary Care Provider] - 1-2 days Decision Time: 23:33
[2017-10-13 20:31] LABS: Basophils % (A) 0 %; Eosinophils # (A) 0.5 k/uL (0-0.7); Eosinophils % (A) 4 %; HCT 40.9 % (34.0-46.0); HGB 14.1 gm/dL (11.4-16.0); Lymphocytes # (A) 2.4 k/uL (1.0-4.8); Lymphocytes % (A) 20 %; MCH 28.1 pg (25.0-35.0); MCHC 34.5 g/dL (31.0-37.0); MCV 81.4 fL (80.0-100.0); Mean Platelet Volume 7.2; Monocytes # (A) 0.5 k/uL (0-1.0); Monocytes % (A) 5 %; Neutrophils # (A) 8.4 k/uL (1.3-7.7); Neutrophils % (A) 69 %; Platelet Count 215 k/uL (150-450); RBC 5.03 m/uL (3.80-5.40); RDW 13.4 % (11.5-15.5); WBC 12.2 k/uL (3.8-10.6)
[2017-10-13 20:43] LABS: Prothrombin Time 9.9 sec (9.0-12.0)
[2017-10-13 20:46] LABS: Partial Thromboplastin Time 19.8 sec (22.0-30.0)
[2017-10-13 20:47] LABS: ALT 27 U/L (9-52); AST 47 U/L (14-36); Albumin 3.7 g/dL (3.5-5.0); Alkaline Phosphatase 106 U/L (38-126); Anion Gap 14 mmol/L; Blood Urea Nitrogen 19 mg/dL (7-17); Calcium 9.2 mg/dL (8.4-10.2); Carbon Dioxide 24 mmol/L (22-30); Chloride 100 mmol/L (98-107); Glucose 236 mg/dL (74-99); Magnesium 2.1 mg/dL (1.6-2.3); Sodium 138 mmol/L (137-145); Total Bilirubin 0.7 mg/dL (0.2-1.3); Total Protein 7.6 g/dL (6.3-8.2)
[2017-10-13 20:51] LABS: Potassium 4.9 mmol/L (3.5-5.1)
[2017-10-13 20:52] LABS: Creatine Kinase 48 U/L (30-135)
[2017-10-13 21:03] LABS: T4, Free (Free Thyroxine) 1.27 ng/dL (0.78-2.19)
[2017-10-13 21:06] LABS: Creatine Kinase MB 0.4 ng/mL (0.0-2.4); Troponin I <0.012 ng/mL (0.000-0.034)
--- NOTE | 2017-10-13 21:13 | XR ---
EXAMINATION TYPE: XR chest 2V DATE OF EXAM: 10/13/2017 COMPARISON: 07/18/2017 HISTORY: Strokelike symptoms. TECHNIQUE: Frontal and lateral views of the chest are obtained. FINDINGS: There is no heart failure nor confluent pneumonic infiltrate. Costophrenic angles are tabatha r. There are chest leads. Bony thorax is intact. There is no evidence of pleural effusion. IMPRESSION: No active cardiopulmonary disease. No significant change.
--- NOTE | 2017-10-13 21:34 | CT ---
EXAMINATION TYPE: CT brain wo con DATE OF EXAM: 10/13/2017 COMPARISON: 07/18/2017 HISTORY: Neuro deficits. CT DLP: 1141 mGycm Automated exposure control for dose reduction was used. FINDINGS: Ventricles have normal size. There is no mass effect nor midline shift. There is no sign of intracran ial hemorrhage. There is a 3 x 2 cm area of hypodensity in the right posterior parietal lobe related to old cortical infarct. There is a similar sized old cortical infarct in the right posterior frontal lobe. The calvarium appears intact. 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 NO ACUTE INTRACRANIAL ABNORMALITY. NO CHANGE COMPARED TO OLD EXAM.
[2017-10-13] MEDS ORDERED: ASPIRIN 325 MG TAB PO STA (23:34)
[2017-10-14] MEDS: SODIUM CHLORIDE 0.9% 1,000 ML IV SCH ×2 (00:02→14:43)
--- NOTE | 2017-10-14 01:03 | US ---
EXAMINATION TYPE: US carotid duplex BILAT DATE OF EXAM: 10/14/2017 COMPARISON: 03/08/2015 CLINICAL HISTORY: Stenosis. Weakness, dizziness stent placed in Left Carotid in 07/2017 per patient Ri ght ICA totally occluded. EXAM MEASUREMENTS: RIGHT: Peak Systolic Velocity (PSV) cm/sec ----- Right CCA: 41.6 ----- Right ICA: occluded ----- Right ECA: 13.8 ICA/CCA ratio: 1.4 RIGHT: End Diastole cm/sec ----- Right CCA: 0 ----- Right ICA: occluded ----- Right ECA: 9.7 LEFT: Peak Systolic Velocity (PSV) cm/sec ----- Left CCA: 66.1 ----- Left ICA: 175.3 ----- Left ECA: 147.6 ICA/CCA ratio: 2.7 LEFT: End Diastole cm/sec ----- Left CCA: 20.8 ----- Left ICA: 61.0 ----- Left ECA: 7.7 VERTEBRALS (direction of flow): Right Vertebral: Antegrade Left Vertebral: Antegrade Rhythm: Normal Right ICA occluded. Elevated velocities in left ICA and ECA. IMPRESSION: There is an occluded right internal carotid artery unchanged. There is elevated velocity in the left internal carotid artery suggestive of more than 50% stenosis t hat is a change compared to old exam. There is antegrade flow in the vertebral arteries. Criteria for Assigning % of Stenosis / Diameter reduction (Estimation based on the indirect measurements of the internal carotid artery velocities (ICA PSV). 1. Normal (no stenosis)=ICA PSV < 125 cm/s: ratio < 2.0: ICA EDV<40 cm/s. 2. Less than 50% stenosis=ICA PSV < 125 cm/s: ratio < 2.0: ICA EDV<40 cm/s. 3. 50 to 69% stenosis=ICA PSV of 125 to 230 cm/s: ration 2.0 ? 4.0: ICA EDV 40-100 cm/s. 4. Greater than 70% stenosis to near occlusion= ICA PSV > 230 cm/s: ratio > 4.0: ICA EDV > 100 cm/s. 5. Near occlusion= ICA PSV velocities may be low or undetectable: variable ratio and ICA EDV. 6. Total occlusion=unable to detect flow.
[2017-10-14 07:26] LABS: Cholesterol 193 mg/dL (<200); HDL Cholesterol 38 mg/dL (40-60); LDL Cholesterol,Calculated 111 mg/dL (0-99); Triglycerides 218 mg/dL (<150)
--- NOTE | 2017-10-14 09:21 | ECHOF ---
Referral Reason:Thrombus MEASUREMENTS -------- HEIGHT: 154.9 cm WEIGHT: 104.3 kg BP: 152/63 IVSd: 1.3 cm (0.6 - 1.1) LVIDd: 3.8 cm (3.9 - 5.3) LVPWd: 1.5 cm (0.6 - 1.1) IVSs: 1.9 cm LVIDs: 2.0 cm LVPWs: 2.0 cm LAESV Index (A-L): 22.22 ml/m Ao Diam: 2.2 cm (2.0 - 3.7) AV Cusp: 1.4 cm (1.5 - 2.6) LA Diam: 3.8 cm (2.7 - 3.8) MV EXCURSION: 11.453 mm (> 18.000) MV EF SLOPE: 57 mm/s (70 - 150) EPSS: 0.3 cm MV E Jorgito: 0.85 m/s MV DecT: 273 ms MV A Jorgito: 1.21 m/s MV E/A Ratio: 0.70 RAP: 5.00 mmHg RVSP: 23.20 mmHg FINDINGS -------- Sinus rhythm. This was a technically adequate study. The left ventricular size is normal. There is moderate concentric left ventricular hypertrophy. O verall left ventricular systolic function is normal with, an EF between 55 - 60 %. The right ventricle is normal in size and function. The left atrium is normal in size. The right atrium is normal in size. The aortic valve is trileaflet, and appears structurally normal. No aortic stenosis or regurgitation. There is trace mitral regurgitation. Trace tricuspid regurgitation present. The right ventricular systolic pressure, as measured by Dopp ler, is 23.20mmHg. Pulmonic valve appears structurally normal. The aortic root size is normal. Normal inferior vena cava with normal inspiratory collapse consistent with estimated right atrial pre ssure of 5 mmHg. The pericardium is normal. CONCLUSIONS -------- 1. Sinus rhythm. 2. This was a technically adequate study. 3. The left ventricular size is normal. 4. There is moderate concentric left ventricular hypertrophy. 5. Overall left ventricular systolic function is normal with, an EF between 55 - 60 %. 6. The right ventricle is normal in size and function. 7. The left atrium is normal in size. 8. The right atrium is normal in size. 9. The aortic valve is trileaflet, and appears structurally normal. No aortic stenosis or regurgitati on. 10. There is trace mitral regurgitation. 11. Trace tricuspid regurgitation present. 12. The right ventricular systolic pressure, as measured by Doppler, is 23.20mmHg. 13. Pulmonic valve appears structurally normal. 14. The aortic root size is normal. 15. Normal inferior vena cava with normal inspiratory collapse consistent with estimated right atrial pressure of 5 mmHg. 16. The pericardium is normal. CREATIVE ARTS THERAPIST: Karen Wu RDCS
[2017-10-14 09:27] LABS: Glucose,Whole Blood 230 mg/dL (75-99)
[2017-10-14] MEDS ORDERED: PNEUMOCOCCAL VACC-PNEUMOVAX 23 25 MCG/0.5 ML VIAL IM ONE (09:30)
[2017-10-14 09:42] LABS: Appearance,Urine Cloudy (Clear); Bilirubin,Urine Negative (Negative); Blood,Urine Negative (Negative); Color,Urine Yellow; Glucose,Urine (UA) Trace (Negative); Hyaline Casts,Urine 46 /lpf (0-2); Ketones,Urine Negative (Negative); Leukocyte Esterase,Urine Negative (Negative); Mucus,Urine Rare /hpf; Nitrite,Urine Negative (Negative); PH, Urine 5.5 (5.0-8.0); Protein,Urine Negative (Negative); RBC,Urine 1 /hpf (0-5); Squamous Epithelial Cell,Urine 2 /hpf (0-4); Urobilinogen,Urine <2.0 mg/dL (<2.0); WBC,Urine 12 /hpf (0-5)
[2017-10-14] MEDS ORDERED: HYDROcodone/APAP 5-325MG 1 EACH TAB PO PRN (10:42)
[2017-10-14] MEDS ORDERED: ADALIMUMAB 10 MG SQ SCH (12:00)
[2017-10-14] MEDS: ASPIRIN 325 MG TAB PO SCH (12:39)
--- NOTE | 2017-10-14 12:49 | P.HPIM ---
History of Present Illness Patient is a pleasant 62-year-old female came in with compensative left-sided weakness patient still has normal left sided weakness and the generalized weakness as well denied tingling numbness patient's symptoms started yesterday afternoon. Patient denied any fever chills nausea vomiting. Patient denied any history of migraine. Patient does have history of CVAs in the past patient had a carotid endarterectomy on the left side there is 50% occlusion on the left side. Right side carotids are okay patient had an echocardiogram which is within normal limits CAT scan of the head showed old right-sided infarcts. Patient's weakness is more than her baseline. Patient is feeling better wanted to go home her weakness improved but still has some left hand drift. Patient is already on Plavix. Patient in the past was an aspirin in spite of which patient ended up having a stroke because of which patient was started on aspirin LDL is around 111 patient 40 mg of Lipitor. Patient denied any seizure like activity or migraine history. Review of Systems REVIEW OF SYSTEMS: CONSTITUTIONAL: No fever, no malaise, no fatigue. HEENT: No recent visual problems or hearing problems. Denied any sore throat. CARDIOVASCULAR: No chest pain, orthopnea, PND, no palpitations, no syncope. PULMONARY: No shortness of breath, no cough, no hemoptysis. GASTROINTESTINAL: No diarrhea, no nausea, no vomiting, no abdominal pain. Normoactive bowel sounds. NEUROLOGICAL: As mentioned in HPI HEMATOLOGICAL: Denies any bleeding or petechiae. GENITOURINARY: Denies any burning micturition, frequency, or urgency. MUSCULOSKELETAL/RHEUMATOLOGICAL: Denies any joint pain, swelling, or any muscle pain. ENDOCRINE: Denies any polyuria or polydipsia. The rest of the 14-point review of systems is negative. Past Medical History Past Medical History: CVA/TIA, Diabetes Mellitus, Fibromyalgia, Hyperlipidemia, Hypertension, Skin Disorder, Sleep Apnea/CPAP/BIPAP Additional Past Medical History / Comment(s): IDDM type II, CVA x 2 no residual , TIA, low back pain with bilateral sciatica at times, insomnia, SHARLA-finishing up testing and is told she will need CPap, psoriasis, sinus problems, bone spurs in bilateral feet. History of Any Multi-Drug Resistant Organisms: None Reported Past Surgical History: Appendectomy, Cholecystectomy, Heart Catheterization, Hysterectomy Additional Past Surgical History / Comment(s): 07/16/17 L endarterectomy with stent, previous R caratid endartectomy about 16yrs ago, bilateral feet bone spurs removed. Past Anesthesia/Blood Transfusion Reactions: No Reported Reaction Smoking Status: Never smoker - Past Family History Father Family Medical History: No Reported History Additional Family Medical History / Comment(s): Father was very healthy and from "old age" at the age of 90yrs. Mother Family Medical History: Myocardial Infarction ([place]) Additional Family Medical History / Comment(s): Mother of a [place] at the age of 78yrs. Medications and Allergies Home Medications Medication Instructions Recorded Confirmed Type Adalimumab [Humira] 10 mg SQ Q14D 07/18/17 10/13/17 History Atorvastatin [Lipitor] 40 mg PO HS 07/18/17 10/13/17 History Clopidogrel [Plavix] 75 mg PO DAILY 07/18/17 10/13/17 History Exenatide [Byetta] 10 mcg SQ BID 07/18/17 10/13/17 History FLUoxetine HCL [PROzac] 10 mg PO HS 07/18/17 10/13/17 History HYDROcodone/APAP 5-325MG [[place] 1 tab PO Q6HR PRN 07/18/17 10/13/17 History 5-325] Linagliptin [Tradjenta] 5 mg PO DAILY 07/18/17 10/13/17 History Loratadine [Claritin] 10 mg PO DAILY 07/18/17 10/13/17 History Pregabalin [Lyrica] 100 mg PO TID 07/18/17 10/13/17 History Tolterodine Tartrate [Detrol LA] 4 mg PO DAILY 07/18/17 10/13/17 History busPIRone HCl [Buspar] 10 mg PO DAILY 07/18/17 10/13/17 History traZODone HCL [Desyrel] 100 mg PO HS PRN 07/18/17 10/13/17 History Lisinopril-Hctz 20-12.5 mg 1 tab PO BID #60 tab 07/19/17 10/13/17 Rx [Zestoretic 20-12.5] Aspirin 81 mg PO DAILY #30 chewable 10/14/17 Rx Allergies Allergy/AdvReac Type Severity Reaction Status Date / Time No Known Allergies Allergy Verified 10/13/17 20:17 Physical Exam Vitals: Vital Signs Temp Pulse Pulse Resp BP BP Pulse Ox 10/14/17 12:00 68 17 141/80 95 10/14/17 08:00 97 F L 54 L 18 138/54 91 L 10/14/17 06:14 97.9 F 63 18 152/63 95 10/14/17 04:57 66 18 148/60 95 10/14/17 03:46 60 18 157/80 95 10/14/17 02:08 70 18 154/67 97 10/14/17 00:54 97.9 F 68 18 145/65 97 10/13/17 20:38 60 18 165/70 99 10/13/17 20:36 59 L 18 173/70 99 10/13/17 20:20 58 L 18 213/86 99 10/13/17 20:05 97.5 F L 63 18 196/79 93 L Intake and Output 10/13/17 10/14/17 10/14/17 22:59 06:59 14:59 Output Total 500 Balance -500 Output: Urine 500 Other: Weight 104.326 kg PHYSICAL EXAMINATION: GENERAL: The patient is alert and oriented x3, not in any acute distress. Well developed, well nourished. HEENT: Pupils are round and equally reacting to light. EOMI. No scleral icterus. No conjunctival pallor. Normocephalic, atraumatic. No pharyngeal erythema. No thyromegaly. CARDIOVASCULAR: S1 and S2 present. No murmurs, rubs, or gallops. PULMONARY: Chest is clear to auscultation, no wheezing or crackles. ABDOMEN: Soft, nontender, nondistended, normoactive bowel sounds. No palpable organomegaly. MUSCULOSKELETAL: No joint swelling or deformity. EXTREMITIES: No cyanosis, clubbing, or pedal edema. NEUROLOGICAL: Patient does have some drift in the left hand apart from that patient stent is about 4+/5 in left upper and lower limb. SKIN: No rashes. Results CBC & Chem 7: 10/13/17 20:05 10/13/17 20:05 Labs: Abnormal Lab Results - Last 24 Hours (Table) 10/13/17 10/13/17 10/13/17 Range/Units 19:57 20:05 20:05 WBC 12.2 H (3.8-10.6) k/uL Neutrophils # 8.4 H (1.3-7.7) k/uL APTT (22.0-30.0) sec BUN 19 H (7-17) mg/dL Glucose 236 H (74-99) mg/dL POC Glucose (mg/dL) 226 H (75-99) mg/dL AST 47 H (14-36) U/L Triglycerides (<150) mg/dL LDL Cholesterol, Calc (0-99) mg/dL HDL Cholesterol (40-60) mg/dL Urine Appearance (Clear) Urine Glucose (UA) (Negative) Urine WBC (0-5) /hpf Hyaline Casts (0-2) /lpf Urine Mucus (None) /hpf 10/13/17 10/14/17 10/14/17 Range/Units 20:05 06:34 09:11 WBC (3.8-10.6) k/uL Neutrophils # (1.3-7.7) k/uL APTT 19.8 L (22.0-30.0) sec BUN (7-17) mg/dL Glucose (74-99) mg/dL POC Glucose (mg/dL) (75-99) mg/dL AST (14-36) U/L Triglycerides 218 H (<150) mg/dL LDL Cholesterol, Calc 111 H (0-99) mg/dL HDL Cholesterol 38 L (40-60) mg/dL Urine Appearance Cloudy H (Clear) Urine Glucose (UA) Trace H (Negative) Urine WBC 12 H (0-5) /hpf Hyaline Casts 46 H (0-2) /lpf Urine Mucus Rare H (None) /hpf 10/14/17 Range/Units 09:24 WBC (3.8-10.6) k/uL Neutrophils # (1.3-7.7) k/uL APTT (22.0-30.0) sec BUN (7-17) mg/dL Glucose (74-99) mg/dL POC Glucose (mg/dL) 230 H (75-99) mg/dL AST (14-36) U/L Triglycerides (<150) mg/dL LDL Cholesterol, Calc (0-99) mg/dL HDL Cholesterol (40-60) mg/dL Urine Appearance (Clear) Urine Glucose (UA) (Negative) Urine WBC (0-5) /hpf Hyaline Casts (0-2) /lpf Urine Mucus (None) /hpf Thrombosis Risk Factor Assmnt - Choose All That Apply Any of the Below Risk Factors Present?: Yes Each Factor Represents 1 point: Obesity (BMI >25) Other Risk Factors: Yes Each Risk Factor Represents 2 Points: Age 61-74 years Other congenital or acquired thrombophilia - If yes, enter type in comment: No Thrombosis Risk Factor Assessment Total Risk Factor Score: 3 Thrombosis Risk Factor Assessment Level: Moderate Risk Assessment and Plan Plan: -Left-sided weakness possible TIA involving the right cerebral hemisphere. Patient may even have a new stroke. Patient is a day and Plavix which will be continued and I will add aspirin 81 mg and will be continued if neurology believes there is any benefit in adding 81 mg of aspirin. Patient is already in a statin 40 mg which will be continued patient already underwent neurological workup for TIA. Patient probably can be discharged after evaluation by PT and OT as well as neurology. -History of CVAs in the past with a history of carotid endarterectomy on the left side. -The type 2 diabetes mellitus -Hyperlipidemia - fibromyalgia -Sleep apnea next For above-mentioned chronic portal problems patient will be resumed and continued on home medications.
--- NOTE | 2017-10-14 13:05 | P.DS ---
Providers Date of admission: 10/13/17 23:33 Attending physician: Rocío Yeh Consults: 10/13/17 23:34 Consult Physician Urgent Consulting Provider: Jayesh Huang Consult Reason/Comments: weakness Do you want consulting provider notified?: Yes Primary care physician: Kam Gallegos [facility] Course: Please refer to my HPI Plan - Discharge Summary Discharge Rx Participant: No New Discharge Prescriptions: New Aspirin 81 mg PO DAILY #30 chewable No Action Pregabalin [Lyrica] 100 mg PO TID Linagliptin [Tradjenta] 5 mg PO DAILY HYDROcodone/APAP 5-325MG [[place] 5-325] 1 tab PO Q6HR PRN PRN Reason: Pain FLUoxetine HCL [PROzac] 10 mg PO HS Clopidogrel [Plavix] 75 mg PO DAILY Atorvastatin [Lipitor] 40 mg PO HS Tolterodine Tartrate [Detrol LA] 4 mg PO DAILY Loratadine [Claritin] 10 mg PO DAILY Adalimumab [Humira] 10 mg SQ Q14D busPIRone HCl [Buspar] 10 mg PO DAILY Exenatide [Byetta] 10 mcg SQ BID traZODone HCL [Desyrel] 100 mg PO HS PRN PRN Reason: Insomnia Lisinopril-Hctz 20-12.5 mg [Zestoretic 20-12.5] 1 tab PO BID #60 tab Discharge Medication List Adalimumab [Humira] 10 mg SQ Q14D 07/18/17 [History] Atorvastatin [Lipitor] 40 mg PO HS 07/18/17 [History] Clopidogrel [Plavix] 75 mg PO DAILY 07/18/17 [History] Exenatide [Byetta] 10 mcg SQ BID 07/18/17 [History] FLUoxetine HCL [PROzac] 10 mg PO HS 07/18/17 [History] HYDROcodone/APAP 5-325MG [[place] 5-325] 1 tab PO Q6HR PRN 07/18/17 [History] Linagliptin [Tradjenta] 5 mg PO DAILY 07/18/17 [History] Loratadine [Claritin] 10 mg PO DAILY 07/18/17 [History] Pregabalin [Lyrica] 100 mg PO TID 07/18/17 [History] Tolterodine Tartrate [Detrol LA] 4 mg PO DAILY 07/18/17 [History] busPIRone HCl [Buspar] 10 mg PO DAILY 07/18/17 [History] traZODone HCL [Desyrel] 100 mg PO HS PRN 07/18/17 [History] Lisinopril-Hctz 20-12.5 mg [Zestoretic 20-12.5] 1 tab PO BID #60 tab 07/19/17 [ Rx] Aspirin 81 mg PO DAILY #30 chewable 10/14/17 [Rx] Follow up Appointment(s)/Referral(s): Kam Gallegos MD [Primary Care Provider] - 3 Days Discharge Disposition: HOME SELF-CARE
[2017-10-14 16:51] LABS: Glucose,Whole Blood 254 mg/dL (75-99)
[2017-10-14] MEDS: PREGABALIN 100 MG CAP PO SCH ×2 (18:21→21:22)
[2017-10-14 19:11] LABS: Hemoglobin A1C 9.3 % (4.0-6.0)
[2017-10-14 20:45] LABS: Glucose,Whole Blood 264 mg/dL (75-99)
[2017-10-14] MEDS ORDERED: ATORVASTATIN 40 MG TAB PO SCH (21:00)
[2017-10-14] MEDS ORDERED: FLUoxetine HCL 10 MG CAP PO SCH (21:00)
[2017-10-14] MEDS: LISINOPRIL-HCTZ 20-12.5 MG 1 EACH TAB PO SCH (21:22)
[2017-10-14] MEDS: EXENATIDE 10 MCG SQ SCH (21:30)
[2017-10-14] MEDS ORDERED: traZODone HCL 100 MG TAB PO SCH (23:45)
[2017-10-15 05:36] LABS: Glucose,Whole Blood 237 mg/dL (75-99)
--- NOTE | 2017-10-15 06:36 | CONS ---
CONSULTATION DATE OF CONSULTATION: 10/14/2017. CHIEF COMPLAINT: Transient ischemic attack. HISTORY OF PRESENT ILLNESS: Mrs. Amanda is a pleasant 62-year-old female, who is being evaluated by the neurology service per the request of Dr. Yeh for a transient ischemic attack. The patient was brought into [facility] after she noticed that she was having weakness. Although she felt that the weakness was generalized, it was more significant on the left side. The patient was having difficulty ambulating and also noticed that she was having significant difficulty holding up her plate using her left arm. She was brought into [facility] for further workup and management. In the emergency room, her blood pressure was found to be significantly elevated at 213/86. CT scan of the brain was done, which showed old strokes involving the right posterior parietal lobe. The patient states that she was diagnosed with a stroke over 15 years ago and was found to have significant carotid stenosis at that time. Since then, she had undergone carotid endarterectomies. She has been told that she has complete occlusion involving the right internal carotid artery. Her carotid Doppler did show occlusion on the right side and approximately 50% stenosis on the left side. She does have a history of a stent placement on the left internal carotid artery which was done this past July. The patient is on Plavix and aspirin at home. Her fasting lipid panel showed dyslipidemia with a cholesterol of 218 and LDL of 111. She does take Lipitor 40 mg daily at home. Her comprehensive metabolic profile showed hyperglycemia at 236. Her INR was normal. At the time of my evaluation, she reports resolution of her weakness. Her blood pressure has improved to 141/80. PAST MEDICAL HISTORY: Hypertension, strokes, diabetes, fibromyalgia, dyslipidemia, obstructive sleep apnea, chronic low back pain, history of appendectomy, cholecystectomy, hysterectomy, carotid artery stent placement, carotid endarterectomy. SOCIAL HISTORY: She denies any tobacco, alcohol or drug use. FAMILY HISTORY: Positive for heart disease. HOME MEDICATIONS: Reviewed in the chart. ALLERGIES: No known drug allergies. REVIEW OF SYSTEMS: CONSTITUTIONAL: Negative. EYES: Negative. ENT: Negative. CARDIOVASCULAR: As mentioned above. RESPIRATORY: Negative. NEUROLOGICAL: As mentioned above. GASTROINTESTINAL: Positive for occasional heartburn. GENITOURINARY: Negative. MUSCULOSKELETAL: Positive for occasional joint pain and low back pain. DERMATOLOGICAL: Negative. ENDOCRINE: Positive for diabetes. PSYCHIATRIC: Negative. PHYSICAL EXAM: Vital signs show a temperature of 97, pulse 68, respirations 17, blood pressure 141/80. GENERAL APPEARANCE: The patient is a mildly obese female, who appears to be in no acute distress. HEENT: Normocephalic, atraumatic. No facial asymmetry is seen. Extraocular muscles are intact. Neck is supple with no masses felt. CARDIOVASCULAR: Regular rate and rhythm. ABDOMEN: Nontender, nondistended. Extremities showed no edema or clubbing. NEUROLOGICAL EXAM: The patient is alert, aware and oriented x3. Speech and language are normal. Strength is full in all 4 extremities. No pronator drift is seen. Sensory exam was normal to light touch in all 4 extremities. No facial asymmetry is seen on cranial nerve testing. IMPRESSION: 1. Transient ischemic attack. 2. Left-sided weakness, resolved. 3. History of previous ischemic stroke. 4. Carotid stenosis. 5. Uncontrolled hypertension. 6. Dyslipidemia. 7. RECOMMENDATION: The patient does appear to have suffered a transient ischemic attack with a transient episode of left hemiparesis. Her symptoms have resolved at this time. This was likely related to her significantly elevated blood pressure. I do recommend adjusting her home medications for her hypertension. The patient is already on aspirin and Plavix for anti-platelet therapy. Her fasting lipid panel shows dyslipidemia. She is already on Lipitor 40 mg daily at home. I will increase this dose to 80 mg daily. The patient was counseled on diet modification. Continue the rest of your current workup and management. I will continue to follow with you. Further recommendations to follow. Thank you for allowing me to participate in the care of your patient. If you have any questions, please feel free to contact me. MMODL / IJN: [id number] /
[2017-10-15] MEDS ORDERED: LINAGLIPTIN 5 MG TABLET PO SCH (09:00)
[2017-10-15] MEDS ORDERED: busPIRone HCl 10 MG TAB PO SCH (09:00)
[2017-10-15] MEDS ORDERED: ATORVASTATIN 80 MG TAB PO SCH (09:00)
[2017-10-15] MEDS: ASPIRIN 325 MG TAB PO SCH (09:00)
[2017-10-15] MEDS ORDERED: OXYBUTYNIN XL 5 MG TAB.ER.24 PO SCH (09:00)
[2017-10-15] MEDS ORDERED: CLOPIDOGREL 75 MG TAB PO SCH (09:00)
[2017-10-15] MEDS ORDERED: LORATADINE 10 MG TAB PO SCH (09:00)
[2017-10-15] MEDS: LISINOPRIL-HCTZ 20-12.5 MG 1 EACH TAB PO SCH (09:01)
[2017-10-15] MEDS: EXENATIDE 10 MCG SQ SCH (09:02)
[2017-10-15] MEDS: PREGABALIN 100 MG CAP PO SCH (09:06)
[2017-10-15 10:53] VITALS: BMI 44.9
[2017-10-15 11:23] VITALS: BP 142/67; PULSE 75; RESP 16; TEMP 98.2
[2017-10-15 11:38] LABS: Glucose,Whole Blood 313 mg/dL (75-99)
--- NOTE | 2017-10-15 13:14 | P.DS ---
Providers Date of admission: 10/13/17 23:33 Attending physician: Rocío Yeh Consults: 10/13/17 23:34 Consult Physician Urgent Consulting Provider: Jayesh Huang Consult Reason/Comments: weakness Do you want consulting provider notified?: Yes Primary care physician: Kam Gallegos [facility] Course: 62-year-old female was admitted for TIA or stroke involving left side of the body. And patient had CVAs in the past and also left sided carotid endarterectomy patient underwent stroke workup no significant abnormality was found except for 50% stenosis in the left internal carotid and the patient is being discharged, adding aspirin and increasing the dose of statin as recommended by neurology, patient is requiring a wheelchair walker PHYSICAL EXAMINATION: GENERAL: The patient is alert and oriented x3, not in any acute distress. Well developed, well nourished. HEENT: Pupils are round and equally reacting to light. EOMI. No scleral icterus. No conjunctival pallor. Normocephalic, atraumatic. No pharyngeal erythema. No thyromegaly. CARDIOVASCULAR: S1 and S2 present. No murmurs, rubs, or gallops. PULMONARY: Chest is clear to auscultation, no wheezing or crackles. ABDOMEN: Soft, nontender, nondistended, normoactive bowel sounds. No palpable organomegaly. MUSCULOSKELETAL: No joint swelling or deformity. EXTREMITIES: No cyanosis, clubbing, or pedal edema. NEUROLOGICAL: Gross neurological examination did not reveal any focal deficits. SKIN: No rashes. For rest of the chronic medical problems and hospitalization course please refer to my HPI Plan - Discharge Summary Discharge Rx Participant: No New Discharge Prescriptions: New Aspirin 81 mg PO DAILY #30 chewable Atorvastatin [Lipitor] 80 mg PO DAILY #30 tab Continue Pregabalin [Lyrica] 100 mg PO TID Linagliptin [Tradjenta] 5 mg PO DAILY HYDROcodone/APAP 5-325MG [[place] 5-325] 1 tab PO Q6HR PRN PRN Reason: Pain FLUoxetine HCL [PROzac] 10 mg PO HS Clopidogrel [Plavix] 75 mg PO DAILY Tolterodine Tartrate [Detrol LA] 4 mg PO DAILY Loratadine [Claritin] 10 mg PO DAILY Adalimumab [Humira] 10 mg SQ Q14D busPIRone HCl [Buspar] 10 mg PO DAILY Exenatide [Byetta] 10 mcg SQ BID traZODone HCL [Desyrel] 100 mg PO HS PRN PRN Reason: Insomnia Lisinopril-Hctz 20-12.5 mg [Zestoretic 20-12.5] 1 tab PO BID #60 tab Discontinued Atorvastatin [Lipitor] 40 mg PO HS Discharge Medication List Adalimumab [Humira] 10 mg SQ Q14D 07/18/17 [History] Clopidogrel [Plavix] 75 mg PO DAILY 07/18/17 [History] Exenatide [Byetta] 10 mcg SQ BID 07/18/17 [History] FLUoxetine HCL [PROzac] 10 mg PO HS 07/18/17 [History] HYDROcodone/APAP 5-325MG [[place] 5-325] 1 tab PO Q6HR PRN 07/18/17 [History] Linagliptin [Tradjenta] 5 mg PO DAILY 07/18/17 [History] Loratadine [Claritin] 10 mg PO DAILY 07/18/17 [History] Pregabalin [Lyrica] 100 mg PO TID 07/18/17 [History] Tolterodine Tartrate [Detrol LA] 4 mg PO DAILY 07/18/17 [History] busPIRone HCl [Buspar] 10 mg PO DAILY 07/18/17 [History] traZODone HCL [Desyrel] 100 mg PO HS PRN 07/18/17 [History] Lisinopril-Hctz 20-12.5 mg [Zestoretic 20-12.5] 1 tab PO BID #60 tab 07/19/17 [ Rx] Aspirin 81 mg PO DAILY #30 chewable 10/14/17 [Rx] Atorvastatin [Lipitor] 80 mg PO DAILY #30 tab 10/15/17 [Rx] Follow up Appointment(s)/Referral(s): Kam Gallegos MD [Primary Care Provider] - 10/23/17 11:30 am (Thursday) Jayesh Huang MD [STAFF PHYSICIAN] - 2 Weeks (Spoke to office coordinator receptionist office will call with appointment time) Patient Instructions/Handouts: Transient Ischemic Attack (DC), Heart Healthy Diet (DC) Discharge Disposition: HOME SELF-CARE
--- NOTE | 2017-10-22 09:38 | CDI ---
Documentation Clarification Form Date: 10/22/2017 12:00:00 AM From: GILBERTO Valenzuela; Claudia Goodwin Building Construction Inspector Phone: If you have a question about this query, please contact Claudia Goodwin Building Construction Inspector at [phone] between 8am and 5pm. Admit Date: 10/13/2017 11:33:00 PM Patient Name: Radha Amanda Visit Number: [id number] Discharge Date: 10/15/2017 ATTENTION: The Clinical Documentation Specialists (CDI) and [facility] Coding Staff appreciate your assistance in clarifying documentation. Please respond to the clarification below the line at the bottom and electronically sign. The CDI & [facility] Coding staff will review the response and follow-up if needed. Please note: Queries are made part of the Legal Health Record. If you have any questions, please contact the author of this message via ITS. Dr. Paola Hermosillo The patient presented with leg weakness, uncontrolled hypertension and was worked up for CVA and/or possible TIA. Consultation dated 10/14 states that patient appears to have suffered a transient ischemic attack with episode of left hemiparesis. History/Risk Factors: CVA history, 50% left internal carotid artery stenosis. Clinical Indicators: BP in ED 213/86. In your opinion what is the most clinically appropriate diagnosis for this patients presenting symptoms? TIA Uncontrolled hypertension Other explanation of clinical findings Unable to determine (no explanation for clinical findings) Appropriate documentation was already dictated in the note MTDD
--- NOTE | 2017-11-04 07:43 | CDI ---
Documentation Clarification Form Date: 10/22/2017 12:00:00 AM From: GILBERTO Valenzuela; Claudia Goodwin Interlocking Installer Phone: If you have a question about this query, please contact Claudia Goodwin Interlocking Installer at [phone] between 8am and 5pm. Admit Date: 10/13/2017 11:33:00 PM Patient Name: Radha Amanda Visit Number: [id number] Discharge Date: 10/15/2017 ATTENTION: The Clinical Documentation Specialists (CDI) and [facility] Coding Staff appreciate your assistance in clarifying documentation. Please respond to the clarification below the line at the bottom and electronically sign. The CDI & [facility] Coding staff will review the response and follow-up if needed. Please note: Queries are made part of the Legal Health Record. If you have any questions, please contact the author of this message via ITS. Dr. Paola Hermosillo The patient presented with leg weakness, uncontrolled hypertension and was worked up for CVA and/or possible TIA. Consultation dated 10/14 states that patient appears to have suffered a transient ischemic attack with episode of left hemiparesis. History/Risk Factors: CVA history, 50% left internal carotid artery stenosis. Clinical Indicators: BP in ED 213/86. In your opinion what is the most clinically appropriate diagnosis for this patients presenting symptoms? TIA Uncontrolled hypertension Other explanation of clinical findings Unable to determine (no explanation for clinical findings) Appropriate documentation was dictated in the note and this query is not necessary MTDD
== END 2017-10-15 13:02 | disposition home or self-care (01) | DRG 68 ==
LOC: EC 19:53 → 6SEL 23:33
PROVIDERS: ADMIT Internal Medicine; ATTEND Internal Medicine
DX: I65.22 Occlusion and stenosis of left carotid artery (principal); Z68.41 Body mass index [BMI] 40.0-44.9, adult; E11.65 Type 2 diabetes mellitus with hyperglycemia; E78.5 Hyperlipidemia, unspecified; G47.33 Obstructive sleep apnea (adult) (pediatric); I10 Essential (primary) hypertension; M79.7 Fibromyalgia; Z79.02 Long term (current) use of antithrombotics/antiplatelets; Z79.82 Long term (current) use of aspirin; Z79.84 Long term (current) use of oral hypoglycemic drugs; Z79.899 Other long term (current) drug therapy; Z82.49 Family history of ischemic heart disease and other diseases of the circulatory system; Z86.73 Personal history of transient ischemic attack (TIA), and cerebral infarction without residual deficits; Z90.49 Acquired absence of other specified parts of digestive tract; Z90.710 Acquired absence of both cervix and uterus; E66.9 Obesity, unspecified
CPT/HCPCS: 36415; 70450; 71046; 80053; 80061; 81001; 82550; 82553; 83036; 83735; 84439; 84443; 84481; 84484; 85025; 85610; 85730; 93005; 93306; 93880; 96360; 96361; 99285

== ENCOUNTER → 2017-12-02 | Outpatient (CLI) | payer MEDICARE, OTHER ==
[2017-12-02 17:40] LABS: Blood Urea Nitrogen 18 mg/dL (7-17)
--- NOTE | 2017-12-03 17:14 | CT ---
EXAMINATION TYPE: CT angio neck DATE OF EXAM: 12/02/2017 HISTORY: Carotid stenosis. History of stent on left. Right carotid endarterectomy. COMPARISON: NONE CT DLP: 387.1 mGycm. Automated Exposure Control for Dose Reduction was Utilized. TECHNIQUE: CTA scan of the neck is performed with IV Contrast, patient injected with 65 mL of Isovue 370, axial images are obtained, coronal and sagittal reformatted images are reviewed. Three-D recons tructed images are created on an independent workstation and reviewed. FINDINGS: Carotid/Vascular Structures: There is a three-vessel arch. Vertebral arteries appear codominant. The right carotid artery is obstructed at its origin. The right external carotid artery is patent. Left internal carotid artery is patent. There is stenosis over a long segment of the proximal left in ternal carotid artery. This measures less than 50% based on measurements.. The stent is within the mi d internal carotid artery. Distal internal carotid artery is visualized appears unremarkable. The sandor rowest portion appears to be just proximal to the left internal carotid artery stent. Other: Left internal carotid artery bifurcates into A1 and M1 segments. The 2 segments appear normal. The anterior communicating artery is patent. The right A1 and M1 segments contain contrast. The post erior communicating arteries are patent. IMPRESSION: 1. Obstruction of the right internal carotid artery at its origin. 2. Distal portion of the proximal left internal carotid artery has the greatest narrowing just proxim al to the stent. Distal left internal carotid artery is patent. 3. Crossover flow from left to right through the anterior communicating artery and the right posterio r communicating artery reconstituting right A1 and M1 segments
== END | disposition home or self-care (01) ==
LOC: RADCTMAIN 17:00
PROVIDERS: ATTEND Surgery Vascular Surgery
DX: I65.23 Occlusion and stenosis of bilateral carotid arteries (principal); N28.9 Disorder of kidney and ureter, unspecified
CPT/HCPCS: 82565; 84520; 70498; 36415; Q9967

== ENCOUNTER → 2020-10-15 | Outpatient (CLI) | payer MEDICARE, OTHER ==
[2020-10-15 18:53] LABS: Follicle Stimulating Hormone 26.7 mIU/mL
[2020-10-15 19:20] LABS: Basophils # (A) 0.06 X 10*3/uL (0.00-0.10); Basophils % (A) 0.8 %; Eosinophils # (A) 0.27 X 10*3/uL (0.04-0.35); Eosinophils % (A) 3.7 %; HCT 36.7 % (37.2-46.3); HGB 11.6 g/dL (12.0-15.0); Lymphocytes # (A) 1.72 X 10*3/uL (0.90-5.00); Lymphocytes % (A) 23.6 %; MCH 28.5 pg (27.0-32.0); MCHC 31.6 g/dL (32.0-37.0); MCV 90.2 fL (80.0-97.0); Mean Platelet Volume 11.1 fL (9.5-12.2); Monocytes # (A) 0.49 X 10*3/uL (0.20-1.00); Monocytes % (A) 6.7 %; Neutrophils # (A) 4.72 X 10*3/uL (1.80-7.70); Neutrophils % (A) 64.7 %; Platelet Count 242 X 10*3/uL (140-440); RBC 4.07 X 10*6/uL (4.10-5.20); RDW 12.8 % (11.5-14.5); Reticulocyte % 1.87 % (0.10-1.80)
[2020-10-15 19:27] LABS: % Iron Saturation 9.68 (12.00-45.00); African American GFR (CKD) 90.3 (60.0-200.0); Albumin 3.8 g/dL (3.80-4.90); Albumin/Globulin Ratio 1.52 (1.60-3.17); Anion Gap 6.4 mmol/L (4.00-12.00); BUN/Creat Ratio 22.5 Ratio (12.00-20.00); C Reactive Protein 1.9 mg/dL (0.0-0.8); Calcium 9.5 mg/dL (8.7-10.3); Carbon Dioxide 28.6 mmol/L (21.6-31.8); Globulin 2.5 g/dL (1.6-3.3); Non-African American GFR(CKD) 77.9 (60.0-200.0); Potassium 4.4 mmol/L (3.5-5.5); Total Bilirubin 0.1 mg/dL (0.3-1.2); Total Protein 6.3 g/dL (6.2-8.2)
[2020-10-15 22:35] LABS: Luteinizing Hormone 9.2 mIU/mL
[2020-10-16 14:27] LABS: Growth Hormone, Human 0.3 ng/mL (<10)
== END | disposition home or self-care (01) ==
LOC: LABWHC1 12:23
PROVIDERS: ATTEND Psychiatry & Neurology Pain Medicine
DX: R53.82 Chronic fatigue, unspecified (principal)
CPT/HCPCS: 36415; 80053; 82306; 82533; 82607; 82626; 82668; 82728; 83001; 83002; 83003; 83036; 83540; 83550; 84207; 84305; 84439; 84443; 84466; 84481; 85025; 85045; 86140

== ENCOUNTER → 2021-06-17 | Outpatient (CLI) | payer MEDICARE, OTHER ==
[2021-06-17 16:33] LABS: HCT 40.6 % (34.0-46.0); HGB 13.4 gm/dL (11.4-16.0); Mean Platelet Volume 8.3; Platelet Count 240 k/uL (150-450); RBC 4.61 m/uL (3.80-5.40); RDW 13.2 % (11.5-15.5); WBC 15.8 k/uL (3.8-10.6)
[2021-06-17 16:34] LABS: Appearance,Urine Clear (Clear); Bilirubin,Urine Negative (Negative); Blood,Urine Negative (Negative); Color,Urine Light Yellow; Glucose,Urine (UA) 4+ (Negative); Ketones,Urine Negative (Negative); Leukocyte Esterase,Urine Negative (Negative); Nitrite,Urine Negative (Negative); Protein,Urine Negative (Negative); Specific Gravity,Urine 1.018 (1.001-1.035); Urobilinogen,Urine <2.0 mg/dL (<2.0)
[2021-06-17 16:47] LABS: ALT 16 U/L (4-34); AST 21 U/L (14-36); African American GFR (CKD) >90 (>60 ml/min/1.73 sqM); Albumin 3.8 g/dL (3.5-5.0); Alkaline Phosphatase 119 U/L (38-126); Anion Gap 9 mmol/L; Blood Urea Nitrogen 19 mg/dL (7-17); Calcium 9.3 mg/dL (8.4-10.2); Carbon Dioxide 29 mmol/L (22-30); Chloride 98 mmol/L (98-107); Glucose 273 mg/dL (74-99); Non-African American GFR(CKD) >90 (>60 ml/min/1.73 sqM); Potassium 4.3 mmol/L (3.5-5.1); Sodium 136 mmol/L (137-145); Total Bilirubin 0.3 mg/dL (0.2-1.3); Total Protein 7.7 g/dL (6.3-8.2)
[2021-06-17 21:50] LABS: INR 0.9 (<1.2); Partial Thromboplastin Time 20.9 sec (22.0-30.0); Prothrombin Time 9.7 sec (9.0-12.0)
== END | disposition home or self-care (01) ==
LOC: LABPAT 15:57
PROVIDERS: ATTEND Orthopaedic Surgery
DX: Z01.812 Encounter for preprocedural laboratory examination (principal)
CPT/HCPCS: 36415; 80053; 81003; 85027; 85610; 85730; 87070

== ENCOUNTER 2021-07-01 12:54 | Observation (INO) | payer MEDICARE, OTHER ==
[2021-06-24 13:25] VITALS: BMI 46.8
[~2021-07-01 12:54] MED LIST: ACETAMINOPHEN TAB 500 MG TAB PO PRN; DEXAMETHASONE SOD PHOSPHATE 4 MG/ML 1 ML VIAL IV ONE; GABAPENTIN 300 MG CAP PO PRN; HYDROmorphone 0.5 MG/0.5 ML SYRINGE IVP PRN; MELOXICAM 7.5 MG TAB PO PRN; MIDAZOLAM 2 MG/2 ML VIAL IV PRN; ONDANSETRON 4 MG/2 ML VIAL IVP ONE; ROPIVACAINE 246.25 MG, EPINEPHrine 0.5 MG, KETOROLAC (30 mg/mL) 30 MG, cloNIDine HCL/PF... MISCELLANE PRN; SCOPOLAMINE 1.5MG/72HR PATCH TRANSDERM ONE; TRANEXAMIC ACID 1,000 MG in SODIUM CHLORIDE 0.9% 100 ML IVPB PRN
[2021-07-01] MEDS ORDERED: bisacodyL 10 MG SUPP RECTAL PRN (13:08)
[2021-07-01] MEDS ORDERED: NA PHOS,M-B/NA PHOS,DI-BA 133 ML ENEMA RECTAL PRN (13:08)
[2021-07-01] MEDS ORDERED: HYDROmorphone 0.5 MG/0.5 ML SYRINGE IVP PRN (13:08)
[2021-07-01] MEDS ORDERED: MAGNESIUM HYDROXIDE 2,400 MG/10 ML CUP PO PRN (13:08)
[2021-07-01] MEDS ORDERED: HYDROmorphone 0.2 MG/1 ML SYRINGE IVP PRN (13:08)
[2021-07-01] MEDS ORDERED: NALOXONE 0.4 MG/ML 1 ML VIAL IV PRN (13:08)
[2021-07-01] MEDS ORDERED: ONDANSETRON 4 MG/2 ML VIAL IVP PRN (13:08)
[2021-07-01] MEDS ORDERED: HYDROcodone/APAP 7.5-325MG 1 EACH TAB PO PRN (13:10)
[2021-07-01] MEDS: LACTATED RINGERS 1,000 ML IV SCH (13:42)
[2021-07-01 13:43] LABS: Glucose,Whole Blood 164 mg/dL (75-99)
[2021-07-01] MEDS ORDERED: LIDOCAINE 1% (10MG/ML) FOR IV START INTRADERMA ONE (13:43)
[2021-07-01] MEDS ORDERED: LIDOCAINE 1% INJ 10MG/ML (20 ML MDV) ONE (13:56)
[2021-07-01] MEDS ORDERED: MIDAZOLAM 2 MG/2 ML VIAL ONE (14:12)
[2021-07-01] MEDS ORDERED: SODIUM CHLORIDE 0.9% 100 ML BAG ONE (14:12)
[2021-07-01] MEDS ORDERED: ROPIVACAINE 5 MG/ML 30 ML VIAL ONE (14:12)
[2021-07-01] MEDS ORDERED: fentaNYL (PF) 50 MCG/ML 2 ML AMP ONE (14:12)
[2021-07-01] MEDS ORDERED: TRANEXAMIC ACID 1,000 MG/10 ML VIAL ONE (14:12)
--- NOTE | 2021-07-01 14:36 | P.ANPRN ---
Procedure Note - Anesthesia - Nerve Block Performed Left Adductor Canal Time Out Performed: Yes (13:54) Date of Procedure: 07/01/21 Procedure Start Time: :54 Procedure Stop Time: 14:06 Location of Patient: PreOp Indication: Acute Post-Operative Pain, Requested by Surgeon (Dr Simone Luna) Sedation Type: Sedate with meaningful contact maintained Preparation: Sterile Prep, Sterile Dressing Position: Supine Catheter: Indwelling Needle Types: Pajunk Needle Gauge: 21 Ultrasound used to visualize needle placement: Yes Ultrasound used to observe medication spread: Yes Injectate: 0.5% Ropivacaine (see comment for volume) (15cc) Blood Aspirated: No Pain Paresthesia on Injection Noted: No Resistance on Injection: Normal Image Stored and Saved: Yes Events: Uneventful and Well Tolerated
--- NOTE | 2021-07-01 14:38 | P.ANPRN ---
Procedure Note - Anesthesia - Nerve Block Performed Left iPack Time Out Performed: Yes Date of Procedure: 07/01/21 Procedure Start Time: 14:07 Procedure Stop Time: 14:16 Location of Patient: PreOp Indication: Acute Post-Operative Pain, Requested by Surgeon (Dr Simone Luna) Sedation Type: Sedate with meaningful contact maintained Preparation: Sterile Prep Position: Supine Catheter: None Needle Types: Pajunk Needle Gauge: 21 Ultrasound used to visualize needle placement: Yes Ultrasound used to observe medication spread: Yes Injectate: 0.5% Ropivacaine (see comment for volume) (15cc) Blood Aspirated: No Pain Paresthesia on Injection Noted: No Resistance on Injection: Normal Image Stored and Saved: Yes Events: Uneventful and Well Tolerated
[2021-07-01] MEDS ORDERED: ceFAZolin 1,000 MG in SODIUM CHLORIDE 0.9% 1,000 ML IRRIGATION ONE (14:42)
--- NOTE | 2021-07-01 15:31 | P.OP ---
Date of Procedure: 07/01/21 Preoperative Diagnosis: Severe osteoarthritis left knee Postoperative Diagnosis: Severe osteoarthritis left knee Procedure(s) Performed: Left total knee arthroplasty Implants: [employer] Journey II CR Oxinium cruciate retaining femoral component size 3, left [employer] Journey nonporous tibial baseplate size 2, left [employer] Journey II, XLPE CR articular insert, size 9 mm, Size 1-2, left [employer] Journey Rosalia II resurfacing patellar component, oval, 29 mm All components were cemented using Palacos R bone cement The articulation is Oxinium on polyethylene Anesthesia: spinal Surgeon: Simone [facility] Recruiting Coordinator #1: Manuela Black Estimated Blood Loss (ml): 50 Pathology: other (Bone and cartilage) Condition: stable Disposition: PACU Indications for Procedure: After failure of conservative treatment we discussed the surgical and nonsurgical treatment options at length. Patient wishes to proceed with a total knee arthroplasty. Complications specific to this procedure were discussed at length, including but not limited to infection, bleeding, stiffness, and nerve injury. Covid-19 was also discussed at length with the patient, and they are aware of the current policies and procedures. The patient was given the option of delaying surgery, but they elect to proceed knowing these risks. Patient is aware of all these complications and informed consent was obtained Operative Findings: The operative findings are consistent with severe osteoarthritis of the left knee Description of Procedure: Patient was seen in the preoperative area and the consent was reviewed and the operative site was marked with a skin marker. The patient verified the procedure and the operative site. An adductor canal pain catheter and an IPAK block was placed by anesthesia in the preoperative area. The patient was then brought to the operating room and given preoperative antibiotics intravenously. A gram of transexamic acid was given intravenously. A spinal anesthetic was administered by the anesthesia department. A tourniquet was placed on the upper thigh and the lower extremity was prepped with chlorhexidine and draped in usual sterile fashion. A universal timeout was then performed which confirmed the patient's name, surgical site, ALLERGIES, and consent. The lower extremity was then exsanguinated and tourniquet was inflated to 250 mmHg. A standard anterior midline approach to the knee was performed. The skin and subcutaneous tissue were sharply dissected down to the patellar tendon. A medial parapatellar arthrotomy was then performed. The knee was then extended, the patellar was everted, and the knee was again flexed. The infra-patellar fat pad was removed in order to enhance exposure. The anterior horns of both menisci were excised, and a release was performed to the posterior medial aspect of the knee. On gross visual inspection, there was complete loss of articular cartilage in the medial and patellofemoral joint spaces. There was also significant cartilage damage in the lateral compartment. There were multiple periarticular osteophytes globally about the knee which were then removed with a Ronguer. The femoral canal was then opened with the 9.5 mm intramedullary drill. The 8 mm intramedullary hillary was then inserted into the femoral canal with the distal femoral cutting guide set for 5 of valgus. The distal femoral cutting block was then pinned in place. The intramedullary hillary was then removed, and the distal femur was then cut. The cutting block was then removed and the cut was checked for symmetry. The resected bone was then measured to confirm the appropriate distal femoral resection. Next, the sizing guide was then placed and set for 3 external rotation based off of the epicondylar axis and Whitesides line. Pins were then placed and the drill holes, and the femur was sized with the sizing stylus. The pins were then removed, and the sizing guide was then removed. The spikes of the femoral block was then placed into the predrilled holes, and malleted into place. Two 45 mm pins were then placed into the fixation holes on the cutting block. An unruly wing was then used to ensure there would be no notching with the anterior cut. The anterior condyles were cut without notching. The anterior chord cut was then performed, followed by the posterior cut, posterior chamfer cut, and the anterior chamfer cut. The collateral ligaments were protected during the entire process. The cutting block was then removed. Any remaining bone and osteophytes were removed from the femur with a Rominger. The femoral canal was plugged with autologous bone. Attention was then directed to the tibia. The remaining ACL was removed with a Ronguer, and the tibia was then gently subluxed forward with a large bent knee retractor. Any remaining menisci were excised. The posterior lateral corner was cauterized in order to coagulate the lateral geniculate artery. The extra medullary tibial cutting guide was then placed, set for the appropriate rotation, slope, and depth of resection. The proximal tibia cutting guide was then pinned in place. Proximal tibia was then cut and sized. The femoral trial was placed. A narrow saw blade was then used to remove the anterior intracondylar femoral bone. The CR notch trial was then placed. The tibial trial was placed with the appropriate-sized insert. The knee was able to fully extend and flex to 130 and was stable throughout all range of motion. The knee was then extended and the patella was everted. Patella was then measured, and then using an osteotomy guide, the patella was cut at the appropriate level. The patella was then measured and drilled and the patella trial was then placed. The knee was then taken through range of motion with the patella trial and the patella tracked normally using the no thumbs technique.. The knee was then extended patella trial was then removed and the patella was everted. Knee was then flexed and lug holes were drilled through the femoral trial and the femoral trial was then removed. The tibial was then re-exposed, and the tibial broach guide was then pinned in place after it was set for the appropriate rotation to allow for the most coverage without overhang. The tibia was then reamed and broached. The cut surfaces of bone were then irrigated with pulsatile lavage. The knee was also irrigated with Irrisept solution. The components were then opened, the cement was mixed, and the components were then cemented in place. The cement was allowed to harden with the knee in full extension. After the cemented hardened. The tourniquet was released, and hemostasis was obtained. A second gram of transexamic acid was given intravenously. The knee was again irrigated. The knee was again taken through range of motion and found to be stable throughout all range of motion of 0-130, and the patella tracked normally. The fascia was then closed with 0 Vicryl followed by #2 strata fix suture. The subcutaneous tissue was closed with 3-0 Vicryl and 3-0 strata fix. Exofin glue was used for the skin and placed with the knee in flexion. After the glue had dried, and Optafoam silver impregnated dressing was applied. The patient was then transferred to recovery room in stable condition. The operations manager assistant LEX Golden was required due the complexity surgery and the need for a skilled surgical forceps fabricator. She assisted in positioning, draping, retraction, and closure of the wound.
[2021-07-01] MEDS: ROPIVACAINE 0.2%-NS ON-Q PUMP 1,090 MG, EMPTY PAIN BALL 1 EACH MISCELLANE PRN ×2 (16:21→20:41)
--- NOTE | 2021-07-01 16:24 | XR ---
EXAMINATION TYPE: XR knee limited LT DATE OF EXAM: 07/01/2021 CLINICAL HISTORY: Postoperative evaluation Two views of the left knee are submitted. Identified are changes of total knee arthroplasty with fem oral and tibial components appearing well seated. Postsurgical soft tissue changes are noted. Align ment is anatomic.
[2021-07-01 16:38] LABS: Glucose,Whole Blood 110 mg/dL (75-99)
[2021-07-01] MEDS: HYDROmorphone 1 MG/ML 1 ML SYRINGE IVP PRN ×2 (17:12→21:06)
[2021-07-01] MEDS: SODIUM CHLORIDE 0.9% 1,000 ML IV SCH (17:21)
[2021-07-01 17:22] LABS: Glucose,Whole Blood 140 mg/dL (75-99)
[2021-07-01] MEDS: HYDROcodone/APAP 7.5-325MG 1 EACH TAB PO PRN (18:42)
[2021-07-01] MEDS ORDERED: LORATADINE 10 MG TAB PO PRN (18:45)
[2021-07-01] MEDS: LISINOPRIL-HCTZ 20-12.5 MG 1 EACH TAB PO SCH (20:11)
[2021-07-01] MEDS: ASPIRIN 81 MG PO SCH (20:11)
[2021-07-01] MEDS: PREGABALIN 100 MG CAP PO SCH (20:12)
[2021-07-01] MEDS: FLUoxetine HCL 20 MG CAP PO SCH (20:12)
[2021-07-01] MEDS: SENNOSIDES-DOCUSATE SODIUM 1 EACH TAB PO SCH (20:12)
[2021-07-01] MEDS: busPIRone HCl 10 MG TAB PO SCH (20:12)
[2021-07-01] MEDS: traZODone HCL 100 MG TAB PO PRN (20:20)
[2021-07-01 21:54] LABS: Glucose,Whole Blood 328 mg/dL (75-99)
[2021-07-01] MEDS: INSULIN ASPART (NovoLOG) 100 UNIT/ML VIAL SQ SCH (22:00)
[2021-07-02] MEDS: HYDROmorphone 1 MG/ML 1 ML SYRINGE IVP PRN ×4 (00:32→17:16)
[2021-07-02] MEDS: SODIUM CHLORIDE 0.9% 1,000 ML IV SCH ×2 (05:39→17:48)
[2021-07-02] MEDS: LACTATED RINGERS 1,000 ML IV SCH (05:40)
--- NOTE | 2021-07-02 07:15 | P.PN ---
Progress Note - Text Progress Note Date: 07/02/21 This is 65 years old female status post left total knee arthroplasty, adductor catheter placed for postoperative pain , currently she is getting ropivacaine 0.2%infusion 8 mL per hour, patient had a history of chronic pain, and she's been on Varnell 10 every 6 hours when necessary, patient complaining that her pain is not well controlled, I recommend to continue the infusion of ropivacaine 0.2% , through the adductor canal catheter and patient could benefit from changing to oral pain medication to Percocet 10/325 every 6 hours when necessary .
[2021-07-02 07:24] LABS: Glucose,Whole Blood 289 mg/dL (75-99)
[2021-07-02] MEDS ORDERED: INSULIN ASPART (NovoLOG) 100 UNIT/ML VIAL SQ SCH (07:30)
[2021-07-02] MEDS: ASPIRIN 81 MG PO SCH ×2 (07:45→19:45)
[2021-07-02] MEDS: PREGABALIN 100 MG CAP PO SCH ×3 (07:45→19:45)
[2021-07-02] MEDS: ATORVASTATIN 80 MG TAB PO SCH (07:45)
[2021-07-02] MEDS: LISINOPRIL-HCTZ 20-12.5 MG 1 EACH TAB PO SCH ×2 (07:45→20:56)
[2021-07-02] MEDS: INSULIN DETEMIR (LEVEMIR) 100 UNIT/ML SYR SQ SCH (07:45)
[2021-07-02] MEDS: CLOPIDOGREL 75 MG TAB PO SCH ×2 (07:45→07:54)
[2021-07-02] MEDS: INSULIN ASPART (NovoLOG) 100 UNIT/ML VIAL SQ SCH ×4 (07:46→21:05)
--- NOTE | 2021-07-02 08:48 | P.PN ---
Subjective Progress Note Date: 07/02/21 This is a 65-year-old female who is status post left total knee arthroplasty. This is postoperative day #1 and patient is seen and evaluated at bedside with Dr. Simone Luna. Patient states that her pain is well-controlled and she has been working with physical therapy. Patient states that she doesn't feel steady on her feet yet. Objective - Vital Signs Vital signs: Vital Signs Temp 98.2 F 07/02/21 07:50 Pulse 88 07/02/21 07:50 Resp 16 07/02/21 07:50 BP 167/62 07/02/21 07:50 Pulse Ox 95 07/02/21 07:50 Intake & Output 07/01/21 07/02/21 07/02/21 18:59 06:59 18:59 Intake Total 651 300 200 Output Total 50 Balance 601 300 200 Weight 110 kg Intake: IV 651 Oral 300 200 Output: Estimated Blood Loss 50 Other: Voiding Method Toilet # Voids 0 2 # Bowel Movements 0 - Exam Vital signs are stable. Patient is in no acute distress and is alert and oriented 3. Calf is soft and nontender to palpation. Dressing is clean, dry, and intact. Patient has full foot and ankle motion without pain or difficulty. Sensation intact. Neurovascular status and circulatory status are intact. - Labs Labs: Abnormal Lab Results - Last 24 Hours (Table) 07/01/21 07/01/21 07/01/21 Range/Units 13:39 16:37 17:21 POC Glucose (mg/dL) 164 H 110 H 140 H (75-99) mg/dL 07/01/21 07/02/21 Range/Units 21:50 07:14 POC Glucose (mg/dL) 328 H 289 H (75-99) mg/dL Assessment and Plan (1) Osteoarthritis of left knee Current Visit: Yes Status: Acute Code(s): M17.12 - UNILATERAL PRIMARY OSTEOARTHRITIS, LEFT KNEE SNOMED Code(s): 905133346642054 (2) S/P total knee arthroplasty Current Visit: Yes Status: Acute Code(s): Z96.659 - PRESENCE OF UNSPECIFIED ARTIFICIAL KNEE JOINT SNOMED Code(s): 1553232886938 Plan: #1 Continue with routine postoperative care and pain control, leave dressing in place for 7 days. #2 Anticoagulation with Plavix and aspirin. #3 Physical therapy and CPM today. #4 Appreciate input from medicine. #5 Anticipate discharge home with home care likely tomorrow.
[2021-07-02] MEDS ORDERED: ASPIRIN 81 MG PO SCH (09:00)
[2021-07-02] MEDS ORDERED: MELOXICAM 7.5 MG TAB PO SCH (09:00)
[2021-07-02] MEDS ORDERED: CLOPIDOGREL 75 MG TAB PO SCH (09:00)
[2021-07-02 11:25] LABS: Basophils # (A) 0.02 X 10*3/uL (0.00-0.10); Basophils % (A) 0.2 %; Eosinophils # (A) 0 X 10*3/uL (0.04-0.35); Eosinophils % (A) 0 %; HCT 37.2 % (37.2-46.3); HGB 11.4 g/dL (12.0-15.0); Lymphocytes # (A) 1.15 X 10*3/uL (0.90-5.00); Lymphocytes % (A) 9.5 %; MCH 27.1 pg (27.0-32.0); MCHC 30.6 g/dL (32.0-37.0); MCV 88.4 fL (80.0-97.0); Mean Platelet Volume 12.5 fL (9.5-12.2); Monocytes # (A) 0.57 X 10*3/uL (0.20-1.00); Monocytes % (A) 4.7 %; Neutrophils # (A) 10.36 X 10*3/uL (1.80-7.70); Neutrophils % (A) 85.1 %; Platelet Count 161 X 10*3/uL (140-440); RBC 4.21 X 10*6/uL (4.10-5.20); RDW 13.1 % (11.5-14.5); WBC 12.16 X 10*3/uL (4.50-10.00)
[2021-07-02 11:29] LABS: Glucose,Whole Blood 237 mg/dL (75-99)
[2021-07-02] MEDS: HYDROcodone/APAP 7.5-325MG 1 EACH TAB PO PRN ×2 (13:28→19:44)
[2021-07-02 17:13] LABS: Glucose,Whole Blood 192 mg/dL (75-99)
[2021-07-02] MEDS: busPIRone HCl 10 MG TAB PO SCH (17:17)
[2021-07-02] MEDS: FLUoxetine HCL 20 MG CAP PO SCH (19:45)
[2021-07-02] MEDS: SENNOSIDES-DOCUSATE SODIUM 1 EACH TAB PO SCH (19:45)
[2021-07-02] MEDS: traZODone HCL 100 MG TAB PO PRN (20:56)
[2021-07-02 21:03] LABS: Glucose,Whole Blood 228 mg/dL (75-99)
--- NOTE | 2021-07-02 21:28 | P.CONS ---
History of Present Illness - Reason for Consult Consult date: 07/02/21 Medical management Requesting physician: Simone Luna - Chief Complaint Left knee pain - History of Present Illness This is a 65-year-old pleasant patient who follows with Dr. Gallegos. Chronic stable medical conditions include diabetes, fibromyalgia, hypertension, hype rlipidemia, SLEEP apnea, low back pain with bilateral sciatica, insomnia, sodium assess, left endarterectomy with stent. Patient underwent left total knee arthroplasty yesterday. Patient having some pain this morning. No nausea vomiting. Did tolerate her breakfast. No chest pain or shortness breath. Sitting up in a chair. Did work with therapy. Review of systems: GEN.: Tired EYES: None HEENT: None NECK: None RESPIRATORY: None CARDIOVASCULAR: None GASTROINTESTINAL: None GENITOURINARY: None MUSCULOSKELETAL: [Joint pains LYMPHATICS: None HEMATOLOGICAL: None PSYCHIATRY: None NEUROLOGICAL: None Past medical history to include: Diabetes, fibromyalgia, hypertension, hyperlipidemia, obstructive sleep apnea, stroke with no residual, low back pain with bilateral sciatica, insomnia, psori asis, sinus problem, bone spurs in the feet, left endarterectomy with stent, right carotid endarterectomy about 60 years ago anxiety depression Social history: Lives alone in an apartment. No smoking. Does use marijuana pipe for sleeping. Family history: Father of old age Physical examination: VITAL SIGNS: 98.2, 88, 16, 167 with 62, 95% room air GENERAL: BMI of 47.4, sitting up in a chair, awake, comfortable. EYES: Pupils equal. Conjunctiva normal. HEENT: External appearance of nose and ears normal, oral cavity grossly normal. NECK: JVD not raised; masses not palpable. HEART: First and second heart sounds are normal; no edema. LUNGS: Respiratory rate normal; clear to auscultation. ABDOMEN: Soft, nontender, liver spleen not palpable, no masses palpable. PSYCH: Alert and oriented x3; mood and affect normal. MUSCULAR skeletal: Evidence of OA. Dressing over the left knee NEUROLOGICAL: Cranial nerves grossly intact; no facial asymmetry, power and sensation grossly intact. LYMPHATICS: No lymph nodes palpable in the axilla and neck INVESTIGATIONS, reviewed in the clinical context: White count 12.1 hemoglobin 11.4 platelets 161. Accu-Cheks noted COVID 19: Not detected Recent labs: Creatinine 0.71 Assessment and plan: -Left total knee arthroplasty Aspirin for DVT prophylaxis -Diabetes mellitus type 2 chronically on insulin Continue with Lantus and sliding scale. -Anxiety depression BuSpar 10 mg daily at bedtime, Desyrel when necessary. Prozac 20 mg daily at bedtime -Essential hypertension Zestoretic 20/12.5 one tablet twice a day, -Hyperlipidemia Lipitor 80 mg daily -Morbid obesity BMI 47.4 Weight loss measures and follow with PCP Home medications resumed. Follow Accu-Cheks. Care was discussed with the patient. Increase activity as tolerated. Aspirin for DVT prophylaxis per Dr. Luna. Patient to follow-up with her family doctor upon discharge. Thank you Dr. Luna Past Medical History Past Medical History: CVA/TIA, Diabetes Mellitus, Fibromyalgia, Hyperlipidemia, Hypertension, Skin Disorder, Sleep Apnea/CPAP/BIPAP Additional Past Medical History / Comment(s): IDDM type II, CVA x 2 no residual, TIA, low back pain with bilateral sciatica at times, insomnia, psoriasis, sinus problems, bone spurs in bilateral feet. History of Any Multi-Drug Resistant Organisms: None Reported Past Surgical History: Appendectomy, Cholecystectomy, Heart Catheterization, Hysterectomy Additional Past Surgical History / Comment(s): 07/16/17 L endarterectomy with stent, previous R caratid endartectomy about 16yrs ago, bilateral feet bone spurs removed, Left total knee arthroplasty. Past Anesthesia/Blood Transfusion Reactions: Postoperative Nausea & Vomiting (PONV) Past Psychological History: Anxiety, Depression Additional Psychological History / Comment(s): Pt resides alone in a apartment. She is independent. Smoking Status: Never smoker Past Alcohol Use History: None Reported Past Drug Use History: Marijuana Additional Drug Use History / Comment(s): Uses marijuana daily (pipe) for sleep. INSTRUCTED TO HOLD 24 HOURS PRIOR TO PROCEDURE - Past Family History Father Family Medical History: No Reported History Additional Family Medical History / Comment(s): Father was very healthy and from "old age" at the age of 90yrs. Mother Family Medical History: Myocardial Infarction ([place]) Additional Family Medical History / Comment(s): Mother of a [place] at the age of 78yrs. Daughter(s) Family Medical History: Deep Vein Thrombosis (DVT) Additional Family Medical History / Comment(s): DVT IN LEG Medications and Allergies Home Medications Medication Instructions Recorded Confirmed Type Clopidogrel [Plavix] 75 mg PO DAILY 07/18/17 06/24/21 History FLUoxetine HCL [PROzac] 20 mg PO HS 07/18/17 06/24/21 History HYDROcodone/APAP 5-325MG [[place] 1 tab PO Q6HR PRN 07/18/17 06/24/21 History 5-325] Loratadine [Claritin] 10 mg PO DAILY PRN 07/18/17 06/24/21 History Pregabalin [Lyrica] 100 mg PO TID 07/18/17 06/24/21 History busPIRone HCl [Buspar] 10 mg PO HS 07/18/17 06/24/21 History traZODone HCL [Desyrel] 100 mg PO HS PRN 07/18/17 06/24/21 History Lisinopril-Hctz 20-12.5 mg 1 tab PO BID #60 tab 07/19/17 06/24/21 Rx [Zestoretic 20-12.5] Aspirin 81 mg PO DAILY #30 chewable 10/14/17 06/24/21 Rx Atorvastatin [Lipitor] 80 mg PO DAILY #30 tab 10/15/17 06/24/21 Rx Insulin Aspart [NovoLOG Flexpen] 15 - 20 units SQ AC-TID 06/24/21 06/24/21 History Insulin Glargine,Hum.rec.anlog 50 unit SQ DAILY 06/24/21 06/24/21 History [Lantus Solostar Pen] Aspirin [Adult Low Dose Aspirin EC] 81 mg PO BID 30 Days #60 tab 07/01/21 Rx HYDROcodone/APAP 7.5-325MG [[place] 1 - 2 tab PO Q6H PRN #32 tab 07/01/21 Rx 7.5-325] Ondansetron Odt [Zofran Odt] 1 tab PO Q8HR PRN #10 tab 07/01/21 Rx Sennosides [Senokot] 2 tab PO DAILY PRN #60 tablet 07/01/21 Rx Allergies Allergy/AdvReac Type Severity Reaction Status Date / Time No Known Allergies Allergy Verified 06/24/21 11:41 Physical Exam Vitals: Vital Signs Temp Pulse Pulse Pulse Resp BP Pulse Ox 07/02/21 07:50 98.2 F 88 16 167/62 95 07/02/21 02:00 97.4 F L 63 17 144/65 97 07/01/21 20:25 78 165/74 94 L 07/01/21 20:20 70 161/68 95 07/01/21 20:05 77 152/72 94 L 07/01/21 20:00 78 17 07/01/21 19:45 78 149/67 94 L 07/01/21 19:35 97.6 F 79 17 150/55 94 L 07/01/21 16:30 53 L 16 141/61 99 07/01/21 16:15 57 L 16 134/65 99 07/01/21 15:50 96.8 F L 62 16 134/62 96 07/01/21 13:22 97.4 F L 64 18 178/74 95 Intake and Output 07/01/21 07/02/21 07/02/21 22:59 06:59 14:59 Intake Total 300 200 Output Total 50 Balance -50 300 200 Intake: Oral 300 200 Output: Estimated Blood Loss 50 Other: Voiding Method Toilet # Voids 1 2 # Bowel Movements 0 Weight 110 kg Results CBC & Chem 7: 07/02/21 07:47 Labs: Abnormal Lab Results - Last 24 Hours (Table) 07/01/21 07/01/21 07/01/21 Range/Units 13:39 16:37 17:21 POC Glucose (mg/dL) 164 H 110 H 140 H (75-99) mg/dL 07/01/21 07/02/21 Range/Units 21:50 07:14 POC Glucose (mg/dL) 328 H 289 H (75-99) mg/dL
[2021-07-03] MEDS: HYDROcodone/APAP 7.5-325MG 1 EACH TAB PO PRN ×3 (01:55→15:12)
[2021-07-03] MEDS: LACTATED RINGERS 1,000 ML IV SCH (03:54)
[2021-07-03 07:20] LABS: Glucose,Whole Blood 233 mg/dL (75-99)
--- NOTE | 2021-07-03 07:20 | P.PN ---
Progress Note - Text Progress Note Date: 07/03/21 Postoperative day # 2 status post total knee arthroplasty, on adductor canal perineural catheter placed for postoperative analgesia. Ropivacaine 0.2% 8 mL per hour through ON-Q pump continuous infusion. Pain is not very well controlled. On visual analog scale 5/10 Patient is taking PRN oral pain medications. Catheter site: Looks Ok. There is no erythema or tenderness. Continue with the current pain management plan and and titrate oral pain medications as needed. Will follow.
--- NOTE | 2021-07-03 08:27 | P.PN ---
Subjective Progress Note Date: 07/03/21 Principal diagnosis: Status post left total knee arthroplasty. Objective - Vital Signs Vital signs: Vital Signs Temp 98.0 F 07/03/21 07:17 Pulse 86 07/03/21 07:17 Resp 18 07/03/21 07:17 BP 201/64 07/03/21 07:17 Pulse Ox 95 07/03/21 07:17 Intake & Output 07/02/21 07/03/21 07/03/21 18:59 06:59 18:59 Intake Total 400 Balance 400 Intake: Oral 400 Other: Voiding Method Toilet Toilet # Voids 2 8 # Bowel Movements 0 - Labs CBC & Chem 7: 07/02/21 07:47 Labs: Abnormal Lab Results - Last 24 Hours (Table) 07/02/21 07/02/21 07/02/21 Range/Units 07:47 11:28 17:10 WBC 12.16 H (4.50-10.00) X 10*3/uL Hgb 11.4 L (12.0-15.0) g/dL MCHC 30.6 L (32.0-37.0) g/dL MPV 12.5 H (9.5-12.2) fL Immature Gran # 0.06 H (0.00-0.04) X 10*3/uL Neutrophils # 10.36 H (1.80-7.70) X 10*3/uL Eosinophils # 0 L (0.04-0.35) X 10*3/uL POC Glucose (mg/dL) 237 H 192 H (75-99) mg/dL 07/02/21 07/03/21 Range/Units 21:01 07:19 WBC (4.50-10.00) X 10*3/uL Hgb (12.0-15.0) g/dL MCHC (32.0-37.0) g/dL MPV (9.5-12.2) fL Immature Gran # (0.00-0.04) X 10*3/uL Neutrophils # (1.80-7.70) X 10*3/uL Eosinophils # (0.04-0.35) X 10*3/uL POC Glucose (mg/dL) 228 H 233 H (75-99) mg/dL
[2021-07-03] MEDS: CLOPIDOGREL 75 MG TAB PO SCH (08:30)
[2021-07-03] MEDS: PREGABALIN 100 MG CAP PO SCH ×3 (08:30→21:32)
[2021-07-03] MEDS: ASPIRIN 81 MG PO SCH ×2 (08:30→21:31)
[2021-07-03] MEDS: ATORVASTATIN 80 MG TAB PO SCH (08:30)
[2021-07-03] MEDS: LISINOPRIL-HCTZ 20-12.5 MG 1 EACH TAB PO SCH ×2 (08:30→21:46)
[2021-07-03] MEDS: INSULIN DETEMIR (LEVEMIR) 100 UNIT/ML SYR SQ SCH ×2 (08:30→08:31)
[2021-07-03] MEDS: INSULIN ASPART (NovoLOG) 100 UNIT/ML VIAL SQ SCH ×4 (08:31→21:31)
[2021-07-03] MEDS: SODIUM CHLORIDE 0.9% 1,000 ML IV SCH (08:31)
--- NOTE | 2021-07-03 11:42 | P.DS ---
Providers Date of admission: 07/02/21 09:55 Expected date of discharge: 07/03/21 Attending physician: Simone Luna Consults: 07/01/21 13:08 Consult Physician Routine Consulting Provider: Janusz Harley Consult Reason/Comments: medical management and anticoagulation Do you want consulting provider notified?: Yes Primary care physician: Kam Gallegos - Discharge Diagnosis(es) (1) Status post left knee replacement Current Visit: Yes Status: Acute (2) Osteoarthritis of left knee Current Visit: Yes Status: Acute Pertinent Studies: Laboratory Tests 07/02/21 07/03/21 07:47 07:19 WBC 12.16 H Hgb 11.4 L POC Glucose (mg/dL) 233 H Patient Condition at Discharge: Stable Plan - Discharge Summary Discharge Rx Participant: No New Discharge Prescriptions: New Aspirin [Adult Low Dose Aspirin EC] 81 mg PO BID 30 Days #60 tab HYDROcodone/APAP 7.5-325MG [[place] 7.5-325] 1 - 2 tab PO Q6H PRN #32 tab PRN Reason: Pain Sennosides [Senokot] 2 tab PO DAILY PRN #60 tablet PRN Reason: Constipation Ondansetron Odt [Zofran Odt] 1 tab PO Q8HR PRN #10 tab PRN Reason: Nausea No Action Pregabalin [Lyrica] 100 mg PO TID HYDROcodone/APAP 5-325MG [[place] 5-325] 1 tab PO Q6HR PRN PRN Reason: Pain FLUoxetine HCL [PROzac] 20 mg PO HS Clopidogrel [Plavix] 75 mg PO DAILY Loratadine [Claritin] 10 mg PO DAILY PRN PRN Reason: ALLERGY SYMPTOMS busPIRone HCl [Buspar] 10 mg PO HS traZODone HCL [Desyrel] 100 mg PO HS PRN PRN Reason: Insomnia Lisinopril-Hctz 20-12.5 mg [Zestoretic 20-12.5] 1 tab PO BID #60 tab Aspirin 81 mg PO DAILY #30 chewable Atorvastatin [Lipitor] 80 mg PO DAILY #30 tab Insulin Aspart [NovoLOG Flexpen] 15 - 20 units SQ AC-TID Insulin Glargine,Hum.rec.anlog [Lantus Solostar Pen] 50 unit SQ DAILY Discharge Medication List Clopidogrel [Plavix] 75 mg PO DAILY 07/18/17 [History] FLUoxetine HCL [PROzac] 20 mg PO HS 07/18/17 [History] HYDROcodone/APAP 5-325MG [[place] 5-325] 1 tab PO Q6HR PRN 07/18/17 [History] Loratadine [Claritin] 10 mg PO DAILY PRN 07/18/17 [History] Pregabalin [Lyrica] 100 mg PO TID 07/18/17 [History] busPIRone HCl [Buspar] 10 mg PO HS 07/18/17 [History] traZODone HCL [Desyrel] 100 mg PO HS PRN 07/18/17 [History] Lisinopril-Hctz 20-12.5 mg [Zestoretic 20-12.5] 1 tab PO BID #60 tab 07/19/17 [Rx] Aspirin 81 mg PO DAILY #30 chewable 10/14/17 [Rx] Atorvastatin [Lipitor] 80 mg PO DAILY #30 tab 10/15/17 [Rx] Insulin Aspart [NovoLOG Flexpen] 15 - 20 units SQ AC-TID 06/24/21 [History] Insulin Glargine,Hum.rec.anlog [Lantus Solostar Pen] 50 unit SQ DAILY 06/24/21 [History] Aspirin [Adult Low Dose Aspirin EC] 81 mg PO BID 30 Days #60 tab 07/01/21 [Rx] HYDROcodone/APAP 7.5-325MG [[place] 7.5-325] 1 - 2 tab PO Q6H PRN #32 tab 07/01/21 [Rx] Ondansetron Odt [Zofran Odt] 1 tab PO Q8HR PRN #10 tab 07/01/21 [Rx] Sennosides [Senokot] 2 tab PO DAILY PRN #60 tablet 07/01/21 [Rx] Follow up Appointment(s)/Referral(s): [facility], [NON-STAFF] - 1 Week Simone Luna DO [Doctor of Osteopathic Medicine] - 2 Weeks Activity/Diet/Wound Care/Special Instructions: Weightbearing as tolerated with a walker. CPM 5-6h daily as tolerated. Leave dressing intact. Dressing may be removed by home care nurse or by patient in 7 days. Then change dressing twice daily until follow up. May shower with initial dressing intact and after removal. If dressing become saturated, please remove. Recommend use of compression stockings daily until follow up to help prevent swelling and blood clots. May remove at night before sleeping. Please resume Plavix. Please take aspirin 81mg twice daily for 30 days. Please follow up with [facility] and call with any questions or concerns, . Discharge Disposition: TRANSFER TO SNF/F
[2021-07-03 11:47] LABS: Glucose,Whole Blood 285 mg/dL (75-99)
[2021-07-03] MEDS: METOPROLOL TARTRATE 25 MG TAB PO SCH ×2 (12:59→21:31)
--- NOTE | 2021-07-03 13:07 | P.PN ---
Subjective Progress Note Date: 07/03/21 Principal diagnosis: Status post left total knee arthroplasty This is a 65 year-old female post left total knee arthroplasty. This is post-op day 2. The patient was evaluated at the bedside with Dr. Luna today. The patient denies nausea, vomiting, abdominal pain, chest pain, or shortness of breath this morning. She states her pain is controlled at this time. The patie nt has been up with physical therapy. She states she would like to go home but may need rehab. Her blood pressure is elevated this morning. Objective - Vital Signs Vital signs: Vital Signs Temp 98.0 F 07/03/21 07:17 Pulse 86 07/03/21 07:17 Resp 18 07/03/21 07:17 BP 190/58 07/03/21 11:20 Pulse Ox 95 07/03/21 11:02 Intake & Output 07/02/21 07/03/21 07/03/21 18:59 06:59 18:59 Intake Total 400 Balance 400 Intake: Oral 400 Other: Voiding Method Toilet Toilet Toilet Diaper Incontinent # Voids 2 8 # Bowel Movements 0 - Exam The patient does not appear in acute distress. Alert and orientated x3. Dressing is clean dry and intact. Incision appears fine with no erythema or active drainage. Calf is soft and nontender. Good foot and ankle motion without difficulty. Sensation and circulatory status is intact. - Labs CBC & Chem 7: 07/02/21 07:47 Labs: Abnormal Lab Results - Last 24 Hours (Table) 07/02/21 07/02/21 07/03/21 Range/Units 17:10 21:01 07:19 POC Glucose (mg/dL) 192 H 228 H 233 H (75-99) mg/dL 07/03/21 Range/Units 11:43 POC Glucose (mg/dL) 285 H (75-99) mg/dL Assessment and Plan (1) Status post left knee replacement Current Visit: Yes Status: Acute Code(s): Z96.652 - PRESENCE OF LEFT MENDEZ FICIAL KNEE JOINT SNOMED Code(s): 1769837500012 (2) Osteoarthritis of left knee Current Visit: Yes Status: Acute Code(s): M17.12 - UNILATERAL PRIMARY OSTEOARTHRITIS, LEFT KNEE SNOMED Code(s): 185771575576695 Plan: 1. Continue pain control 2. Anticoagulation with Aspirin 3. Continue physical therapy and ambulation 4. Monitor blood pressure. Internal medicine to manage 5. Anticipate discharge to skilled rehab tomorrow
[2021-07-03 16:32] LABS: Glucose,Whole Blood 210 mg/dL (75-99)
[2021-07-03 21:01] LABS: Glucose,Whole Blood 201 mg/dL (75-99)
[2021-07-03] MEDS: FLUoxetine HCL 20 MG CAP PO SCH (21:30)
[2021-07-03] MEDS: busPIRone HCl 10 MG TAB PO SCH (21:30)
[2021-07-03] MEDS: SENNOSIDES-DOCUSATE SODIUM 1 EACH TAB PO SCH (21:31)
--- NOTE | 2021-07-03 21:50 | P.PN ---
Progress Note - Text Progress Note Date: 07/03/21 - Chief Complaint Left knee pain This is a 65-year-old pleasant patient who follows with Dr. Gallegos. Chronic stable medical conditions include diabetes, fibromyalgia, hypertension, hyperlipidemia, SLEEP apnea, low back pain with bilateral sciatica, insomnia, sodium assess, left endarterectomy with stent. Patient underwent left total knee arthroplasty yesterday. Patient having some pain this morning. No nausea vomiting. Did tolerate her breakfast. No chest pain or shortness breath. Sitting up in a chair. Did work with therapy. July 03: Sitting up in a chair. Somewhat anxious. Significant pain. Blood pressure running high. Adding Lopressor 25 mg twice a day. Patient counseled. DC IV fluids. Oral intake fair. No chest pain or shortness of breath Review of systems: Was done for constitutional, cardiovascular, GI, pulmonary. relevant finding as above Active Medications Hydrocodone Bitart/Acetaminophen (Hydrocodone/Apap 7.5-325mg 1 Each Tab) 1 each PO Q6H PRN PRN Reason: Pain Scale 1 to 5 Stop: 07/31/21 13:11 Hydrocodone Bitart/Acetaminophen (Hydrocodone/Apap 7.5-325mg 1 Each Tab) 2 each PO Q6H PRN PRN Reason: Pain Scale 6 to 10 Stop: 07/31/21 13:11 Last Admin: 07/03/21 15:12 Dose: 2 each Documented by: Aspirin (Aspirin 81 Mg) 81 mg PO BID [facility] Stop: 07/31/21 21:01 Last Admin: 07/03/21 21:31 Dose: 81 mg Documented by: Atorvastatin Calcium (Atorvastatin 80 Mg Tab) 80 mg PO DAILY [facility] Last Admin: 07/03/21 08:30 Dose: 80 mg Documented by: Bisacodyl (Bisacodyl 10 Mg Supp) 10 mg RECTAL DAILY PRN PRN Reason: Constipation Stop: 07/31/21 13:09 Buspirone HCl (Buspirone Hcl 10 Mg Tab) 10 mg PO HS [facility] Last Admin: 07/03/21 21:30 Dose: 10 mg Documented by: Clopidogrel Bisulfate (Clopidogrel 75 Mg Tab) 75 mg PO DAILY [facility] Stop: 08/01/21 09:01 Last Admin: 07/03/21 08:30 Dose: 75 mg Documented by: Ropivacaine 1,090 mg/ Bandage/ (Support Products 1 each) 0 mg MISCELLANE Q2H PRN PRN Reason: Breakthrough Pain Stop: 07/31/21 14:36 Last Admin: 07/01/21 20:41 Dose: 10 ml Documented by: Fluoxetine HCl (Fluoxetine Hcl 20 Mg Cap) 20 mg PO HS [facility] Last Admin: 07/03/21 21:30 Dose: 20 mg Documented by: Lisinopril/HCTZ (Lisinopril-Hctz 20-12.5 Mg 1 Each Tab) 1 each PO BID [facility] Last Admin: 07/03/21 21:46 Dose: 1 each Documented by: Hydromorphone HCl (Hydromorphone 0.5 Mg/0.5 Ml Syringe) 0.5 mg IVP Q3HR PRN PRN Reason: Pain Scale 4 to 6 Stop: 07/31/21 13:09 Hydromorphone HCl (Hydromorphone 1 Mg/Ml 1 Ml Syringe) 1 mg IVP Q3HR PRN PRN Reason: Pain Scale 7 to 10 Stop: 07/31/21 13:09 Last Admin: 07/02/21 17:16 Dose: 1 mg Documented by: Hydromorphone HCl (Hydromorphone 0.2 Mg/1 Ml Syringe) 0.2 mg IVP Q3HR PRN PRN Reason: Pain Scale 1 to 3 Stop: 07/31/21 13:09 Insulin Aspart (Insulin Aspart (Novolog) 100 Unit/Ml Vial) 0 unit SQ [facility]; Protocol Last Admin: 07/03/21 21:31 Dose: 4 unit Documented by: Insulin Detemir (Insulin Detemir (Levemir) 100 Unit/Ml Syr) 50 unit SQ DAILY [facility] Last Admin: 07/03/21 08:31 Dose: 50 unit Documented by: Loratadine (Loratadine 10 Mg Tab) 10 mg PO DAILY PRN PRN Reason: ALLERGY SYMPTOMS Magnesium Hydroxide (Magnesium Hydroxide 2,400 Mg/10 Ml Cup) 2,400 mg PO DAILY PRN PRN Reason: Constipation Stop: 07/31/21 13:09 Metoprolol Tartrate (Metoprolol Tartrate 25 Mg Tab) 25 mg PO BID [facility] Last Admin: 07/03/21 21:31 Dose: 25 mg Documented by: Naloxone HCl (Naloxone 0.4 Mg/Ml 1 Ml Vial) 0.2 mg IV Q2M PRN PRN Reason: Opioid Reversal Stop: 07/31/21 13:09 Ondansetron HCl (Ondansetron 4 Mg/2 Ml Vial) 4 mg IVP Q8HR PRN PRN Reason: Nausea And Vomiting Stop: 07/31/21 13:09 Last Admin: 07/02/21 18:02 Dose: 4 mg Documented by: Pregabalin (Pregabalin 100 Mg Cap) 100 mg PO TID [facility] Last Admin: 07/03/21 21:32 Dose: 100 mg Documented by: Senna/Docusate Sodium (Sennosides-Docusate Sodium 1 Each Tab) 2 each PO HS [facility] Stop: 07/31/21 21:01 Last Admin: 07/03/21 21:31 Dose: 2 each Documented by: Sodium Biphosphate/Sodium Phosphate (Na Phos,M-B/Na Phos,Di-Ba 133 Ml Enema) 133 ml RECTAL DAILY PRN PRN Reason: Constipation Stop: 07/31/21 13:09 Trazodone HCl (Trazodone Hcl 100 Mg Tab) 100 mg PO HS PRN PRN Reason: Insomnia Last Admin: 07/02/21 20:56 Dose: 100 mg Documented by: Past medical history to include: Diabetes, fibromyalgia, hypertension, hyperlipidemia, obstructive sleep apnea, stroke with no residual, low back pain with bilateral sciatica, insomnia, psoriasis, sinus problem, bone spurs in the feet, left endarterectomy with stent, right carotid endarterectomy about 60 years ago anxiety depression Social history: Lives alone in an apartment. No smoking. Does use marijuana pipe for sleeping. Family history: Father of old age Physical examination: VITAL SIGNS: 98.1, 57, 17, 184 stress 53, 93% on room air GENERAL: , sitting up in a chair, awake, a bit anxious EYES: Pupils equal. Conjunctiva normal. HEENT: External appearance of nose and ears normal, oral cavity grossly normal. NECK: JVD not raised; masses not palpable. HEART: First and second heart sounds are normal; no edema. LUNGS: Respiratory rate normal; clear to auscultation. ABDOMEN: Soft, nontender, liver spleen not palpable, no masses palpable. PSYCH: Alert and oriented x3; mood and affect . Anxious. MUSCULAR skeletal: Evidence of OA. Dressing over the left knee INVESTIGATIONS, reviewed in the clinical context: White count 12.1 hemoglobin 11.4 platelets 161. Accu-Cheks noted COVID 19: Not detected Recent labs: Creatinine 0.71 Assessment and plan: -Left total knee arthroplasty Aspirin for DVT prophylaxis -Diabetes mellitus type 2 chronically on insulin Continue with Lantus and sliding scale. -Anxiety depression BuSpar 10 mg daily at bedtime, Desyrel when necessary. Prozac 20 mg daily at bedtime -Essential hypertension, uncontrolled Zestoretic 20/12.5 one tablet twice a day, add Lopressor 25 mg twice a day. -Hyperlipidemia Lipitor 80 mg daily -Morbid obesity BMI 47.4 Weight loss measures and follow with PCP DC normal saline. Add Lopressor 25 mg twice a day. Other medications to continue. Patient reassured. Thank you Dr. Luna
[2021-07-04 07:11] LABS: Glucose,Whole Blood 174 mg/dL (75-99)
[2021-07-04] MEDS: INSULIN ASPART (NovoLOG) 100 UNIT/ML VIAL SQ SCH ×2 (07:47→12:02)
[2021-07-04] MEDS: ASPIRIN 81 MG PO SCH (07:48)
[2021-07-04] MEDS: ATORVASTATIN 80 MG TAB PO SCH (07:48)
[2021-07-04] MEDS: METOPROLOL TARTRATE 25 MG TAB PO SCH (07:48)
[2021-07-04] MEDS: PREGABALIN 100 MG CAP PO SCH ×2 (07:48→15:12)
[2021-07-04] MEDS: LISINOPRIL-HCTZ 20-12.5 MG 1 EACH TAB PO SCH (07:48)
[2021-07-04] MEDS: CLOPIDOGREL 75 MG TAB PO SCH (07:48)
[2021-07-04 09:14] LABS: Basophils # (A) 0.05 X 10*3/uL (0.00-0.10); Basophils % (A) 0.5 %; Eosinophils # (A) 0.21 X 10*3/uL (0.04-0.35); Eosinophils % (A) 1.9 %; HCT 38.1 % (37.2-46.3); HGB 12.2 g/dL (12.0-15.0); Lymphocytes # (A) 1.43 X 10*3/uL (0.90-5.00); Lymphocytes % (A) 13.2 %; MCH 27.7 pg (27.0-32.0); MCV 86.4 fL (80.0-97.0); Mean Platelet Volume 11.9 fL (9.5-12.2); Monocytes # (A) 0.83 X 10*3/uL (0.20-1.00); Monocytes % (A) 7.6 %; Neutrophils # (A) 8.31 X 10*3/uL (1.80-7.70); Neutrophils % (A) 76.5 %; Platelet Count 157 X 10*3/uL (140-440); RBC 4.41 X 10*6/uL (4.10-5.20); RDW 13.1 % (11.5-14.5); WBC 10.86 X 10*3/uL (4.50-10.00)
[2021-07-04] MEDS ORDERED: DOCUSATE 100 MG CAP PO PRN (11:47)
--- NOTE | 2021-07-04 11:51 | P.DS ---
Providers Date of admission: 07/02/21 09:55 Expected date of discharge: 07/04/21 Attending physician: Simone Luna Consults: 07/01/21 13:08 Consult Physician Routine Consulting Provider: Janusz Harley Consult Reason/Comments: medical management and anticoagulation Do you want consulting provider notified?: Yes Primary care physician: Kam Gallegos - Discharge Diagnosis(es) (1) Osteoarthritis of left knee Current Visit: Yes Status: Acute (2) S/P total knee arthroplasty Current Visit: Yes Status: Acute Hospital Course: This is a 65-year-old female with known history of degenerative arthritis of the left knee. The patient presented for evaluation as an outpatient. After discussion and consideration patient elects to proceed with total knee arthroplasty. The patient is seen preoperatively by Dr. Luna and medically cleared for surgery by their primary care physician. Patient is admitted to [facility] on 07/02/2021 for total knee arthroplasty. The procedure is performed without complication or sequelae. The patient is doing well postoperatively. Labs and vital signs are stable on day of discharge. On day of discharge patient's knee incision is healing well. There is minimal erythema. There is no drainage noted at this time. There is minimal soft tissue swelling to the knee. Patient has full foot and ankle motion without difficulty or pain. Calf is soft and nontender to palpation. Neurovascular status to the left lower extremity is intact. Patient is discharged to rehab in good condition. Please see [facility] for accurate list of home medications. Patient Condition at Discharge: Stable Plan - Discharge Summary Discharge Rx Participant: No New Discharge Prescriptions: New Aspirin [Adult Low Dose Aspirin EC] 81 mg PO BID 30 Days #60 tab HYDROcodone/APAP 7.5-325MG [[place] 7.5-325] 1 - 2 tab PO Q6H PRN #32 tab PRN Reason: Pain Sennosides [Senokot] 2 tab PO DAILY PRN #60 tablet PRN Reason: Constipation Ondansetron Odt [Zofran Odt] 1 tab PO Q8HR PRN #10 tab PRN Reason: Nausea No Action Pregabalin [Lyrica] 100 mg PO TID HYDROcodone/APAP 5-325MG [[place] 5-325] 1 tab PO Q6HR PRN PRN Reason: Pain FLUoxetine HCL [PROzac] 20 mg PO HS Clopidogrel [Plavix] 75 mg PO DAILY Loratadine [Claritin] 10 mg PO DAILY PRN PRN Reason: ALLERGY SYMPTOMS busPIRone HCl [Buspar] 10 mg PO HS traZODone HCL [Desyrel] 100 mg PO HS PRN PRN Reason: Insomnia Lisinopril-Hctz 20-12.5 mg [Zestoretic 20-12.5] 1 tab PO BID #60 tab Aspirin 81 mg PO DAILY #30 chewable Atorvastatin [Lipitor] 80 mg PO DAILY #30 tab Insulin Aspart [NovoLOG Flexpen] 15 - 20 units SQ AC-TID Insulin Glargine,Hum.rec.anlog [Lantus Solostar Pen] 50 unit SQ DAILY Discharge Medication List Clopidogrel [Plavix] 75 mg PO DAILY 07/18/17 [History] FLUoxetine HCL [PROzac] 20 mg PO HS 07/18/17 [History] HYDROcodone/APAP 5-325MG [[place] 5-325] 1 tab PO Q6HR PRN 07/18/17 [History] Loratadine [Claritin] 10 mg PO DAILY PRN 07/18/17 [History] Pregabalin [Lyrica] 100 mg PO TID 07/18/17 [History] busPIRone HCl [Buspar] 10 mg PO HS 07/18/17 [History] traZODone HCL [Desyrel] 100 mg PO HS PRN 07/18/17 [History] Lisinopril-Hctz 20-12.5 mg [Zestoretic 20-12.5] 1 tab PO BID #60 tab 07/19/17 [Rx] Aspirin 81 mg PO DAILY #30 chewable 10/14/17 [Rx] Atorvastatin [Lipitor] 80 mg PO DAILY #30 tab 10/15/17 [Rx] Insulin Aspart [NovoLOG Flexpen] 15 - 20 units SQ AC-TID 06/24/21 [History] Insulin Glargine,Hum.rec.anlog [Lantus Solostar Pen] 50 unit SQ DAILY 06/24/21 [History] Aspirin [Adult Low Dose Aspirin EC] 81 mg PO BID 30 Days #60 tab 07/01/21 [Rx] HYDROcodone/APAP 7.5-325MG [[place] 7.5-325] 1 - 2 tab PO Q6H PRN #32 tab 07/01/21 [Rx] Ondansetron Odt [Zofran Odt] 1 tab PO Q8HR PRN #10 tab 07/01/21 [Rx] Sennosides [Senokot] 2 tab PO DAILY PRN #60 tablet 07/01/21 [Rx] Follow up Appointment(s)/Referral(s): [facility], [NON-STAFF] - 1 Week Simone Luna DO [Doctor of Osteopathic Medicine] - 2 Weeks Activity/Diet/Wound Care/Special Instructions: Weightbearing as tolerated with a walker. CPM 5-6h daily as tolerated. Leave dressing intact. Dressing may be removed by home care nurse or by patient in 7 days. Then change dressing twice daily until follow up. May shower with initial dressing intact and after removal. If dressing become saturated, please remove. Recommend use of compression stockings daily until follow up to help prevent swelling and blood clots. May remove at night before sleeping. Please resume Plavix. Please take aspirin 81mg twice daily for 30 days. Please follow up with [facility] and call with any questions or concerns, . Discharge Disposition: TRANSFER TO SNF/ECF
[2021-07-04 11:59] LABS: Glucose,Whole Blood 188 mg/dL (75-99)
[2021-07-04 14:52] VITALS: PULSE 53; RESP 18; TEMP 98.4
[2021-07-04 15:21] VITALS: BP 160/79
--- NOTE | 2021-07-04 16:58 | P.PN ---
Progress Note - Text Progress Note Date: 07/04/21 - Chief Complaint Left knee pain This is a 65-year-old pleasant patient who follows with Dr. Gallegos. Chronic stable medical conditions include diabetes, fibromyalgia, hypertension, hyperlipidemia, SLEEP apnea, low back pain with bilateral sciatica, insomnia, sodium assess, left endarterectomy with stent. Patient underwent left total knee arthroplasty yesterday. Patient having some pain this morning. No nausea vomiting. Did tolerate her breakfast. No chest pain or shortness breath. Sitting up in a chair. Did work with therapy. July 03: Sitting up in a chair. Somewhat anxious. Significant pain. Blood pressure running high. Adding Lopressor 25 mg twice a day. Patient counseled. DC IV fluids. Oral intake fair. No chest pain or shortness of breath July 04: Still having significant pain. Patient has a low pain threshold. Anxious. Counseled. Blood pressure better. Working with therapy. Review of systems: Was done for constitutional, cardiovascular, GI, pulmonary. relevant finding as above Active Medications Hydrocodone Bitart/Acetaminophen (Hydrocodone/Apap 7.5-325mg 1 Each Tab) 1 each PO Q6H PRN PRN Reason: Pain Scale 1 to 5 Stop: 07/31/21 13:11 Last Admin: 07/04/21 08:11 Dose: 1 each Documented by: Hydrocodone Bitart/Acetaminophen (Hydrocodone/Apap 7.5-325mg 1 Each Tab) 2 each PO Q6H PRN PRN Reason: Pain Scale 6 to 10 Stop: 07/31/21 13:11 Last Admin: 07/03/21 15:12 Dose: 2 each Documented by: Aspirin (Aspirin 81 Mg) 81 mg PO BID [facility] Stop: 07/31/21 21:01 Last Admin: 07/04/21 07:48 Dose: 81 mg Documented by: Atorvastatin Calcium (Atorvastatin 80 Mg Tab) 80 mg PO DAILY [facility] Last Admin: 07/04/21 07:48 Dose: 80 mg Documented by: Bisacodyl (Bisacodyl 10 Mg Supp) 10 mg RECTAL DAILY PRN PRN Reason: Constipation Stop: 07/31/21 13:09 Buspirone HCl (Buspirone Hcl 10 Mg Tab) 10 mg PO HS [facility] Last Admin: 07/03/21 21:30 Dose: 10 mg Documented by: Clopidogrel Bisulfate (Clopidogrel 75 Mg Tab) 75 mg PO DAILY [facility] Stop: 08/01/21 09:01 Last Admin: 07/04/21 07:48 Dose: 75 mg Documented by: Ropivacaine 1,090 mg/ Bandage/ (Support Products 1 each) 0 mg MISCELLANE Q2H PRN PRN Reason: Breakthrough Pain Stop: 07/31/21 14:36 Last Admin: 07/01/21 20:41 Dose: 10 ml Documented by: Docusate Sodium (Docusate 100 Mg Cap) 100 mg PO DAILY PRN PRN Reason: Constipation Last Admin: 07/04/21 12:06 Dose: 100 mg Documented by: Fluoxetine HCl (Fluoxetine Hcl 20 Mg Cap) 20 mg PO [facility] Last Admin: 07/03/21 21:30 Dose: 20 mg Documented by: Lisinopril/HCTZ (Lisinopril-Hctz 20-12.5 Mg 1 Each Tab) 1 each PO BID [facility] Last Admin: 07/04/21 07:48 Dose: 1 each Documented by: Hydromorphone HCl (Hydromorphone 0.5 Mg/0.5 Ml Syringe) 0.5 mg IVP Q3HR PRN PRN Reason: Pain Scale 4 to 6 Stop: 07/31/21 13:09 Hydromorphone HCl (Hydromorphone 1 Mg/Ml 1 Ml Syringe) 1 mg IVP Q3HR PRN PRN Reason: Pain Scale 7 to 10 Stop: 07/31/21 13:09 Last Admin: 07/02/21 17:16 Dose: 1 mg Documented by: Hydromorphone HCl (Hydromorphone 0.2 Mg/1 Ml Syringe) 0.2 mg IVP Q3HR PRN PRN Reason: Pain Scale 1 to 3 Stop: 07/31/21 13:09 Insulin Aspart (Insulin Aspart (Novolog) 100 Unit/Ml Vial) 0 unit SQ [facility]; Protocol Last Admin: 07/04/21 12:02 Dose: 3 unit Documented by: Insulin Detemir (Insulin Detemir (Levemir) 100 Unit/Ml Syr) 50 unit SQ DAILY [facility] Last Admin: 07/03/21 08:31 Dose: 50 unit Documented by: Loratadine (Loratadine 10 Mg Tab) 10 mg PO DAILY PRN PRN Reason: ALLERGY SYMPTOMS Magnesium Hydroxide (Magnesium Hydroxide 2,400 Mg/10 Ml Cup) 2,400 mg PO DAILY PRN PRN Reason: Constipation Stop: 07/31/21 13:09 Last Admin: 07/04/21 07:54 Dose: 2,400 mg Documented by: Metoprolol Tartrate (Metoprolol Tartrate 25 Mg Tab) 25 mg PO BID [facility] Last Admin: 07/04/21 07:48 Dose: 25 mg Documented by: Naloxone HCl (Naloxone 0.4 Mg/Ml 1 Ml Vial) 0.2 mg IV Q2M PRN PRN Reason: Opioid Reversal Stop: 07/31/21 13:09 Ondansetron HCl (Ondansetron 4 Mg/2 Ml Vial) 4 mg IVP Q8HR PRN PRN Reason: Nausea And Vomiting Stop: 07/31/21 13:09 Last Admin: 07/02/21 18:02 Dose: 4 mg Documented by: Pregabalin (Pregabalin 100 Mg Cap) 100 mg PO TID [facility] Last Admin: 07/04/21 15:12 Dose: 100 mg Documented by: Sodium Biphosphate/Sodium Phosphate (Na Phos,M-B/Na Phos,Di-Ba 133 Ml Enema) 133 ml RECTAL DAILY PRN PRN Reason: Constipation Stop: 07/31/21 13:09 Trazodone HCl (Trazodone Hcl 100 Mg Tab) 100 mg PO HS PRN PRN Reason: Insomnia Last Admin: 07/02/21 20:56 Dose: 100 mg Documented by: Past medical history to include: Diabetes, fibromyalgia, hypertension, hyperlipidemia, obstructive sleep apnea, stroke with no residual, low back pain with bilateral sciatica, insomnia, psoriasis, sinus problem, bone spurs in the feet, left endarterectomy with stent, right carotid endarterectomy about 60 years ago anxiety depression Social history: Lives alone in an apartment. No smoking. Does use marijuana pipe for sleeping. Family history: Father of old age Physical examination: VITAL SIGNS: 98.4, 53, 18, 157/80, 95% on room air GENERAL: awake, comfortable EYES: Pupils equal. Conjunctiva normal. HEENT: External appearance of nose and ears normal, oral cavity grossly normal. NECK: JVD not raised; masses not palpable. HEART: First and second heart sounds are normal; no edema. LUNGS: Respiratory rate normal; clear to auscultation. ABDOMEN: Soft, nontender, liver spleen not palpable, no masses palpable. PSYCH: Alert and oriented x3; mood and affect . Anxious. MUSCULAR skeletal: Evidence of OA. Dressing over the left knee INVESTIGATIONS, reviewed in the clinical context: July 04: White count 10.8 hemoglobin 12.2 White count 12.1 hemoglobin 11.4 platelets 161. Accu-Cheks noted COVID 19: Not detected Recent labs: Creatinine 0.71 Assessment and plan: -Left total knee arthroplasty Aspirin for DVT prophylaxis -Diabetes mellitus type 2 chronically on insulin Continue with Lantus and sliding scale. -Anxiety depression BuSpar 10 mg daily at bedtime, Desyrel when necessary. Prozac 20 mg daily at bedtime -Essential hypertension, uncontrolled Zestoretic 20/12.5 one tablet twice a day, Lopressor 25 mg twice a day. -Hyperlipidemia Lipitor 80 mg daily -Morbid obesity BMI 47.4 Weight loss measures and follow with PCP Care was discussed with the patient. Already on significant pain medications. Counseled. Other medications to continue. Thank you Dr. Luna
== END 2021-07-04 17:03 ==
LOC: OR 12:54 → 4SSUR 15:49 → OR 07-02 09:55 → 4SSUR 07-02 09:55
PROVIDERS: ADMIT Orthopaedic Surgery; ATTEND Orthopaedic Surgery
DX: M17.12 Unilateral primary osteoarthritis, left knee (principal); E11.9 Type 2 diabetes mellitus without complications; M79.7 Fibromyalgia; I10 Essential (primary) hypertension; E78.5 Hyperlipidemia, unspecified; M54.42 Lumbago with sciatica, left side; M54.41 Lumbago with sciatica, right side; G47.00 Insomnia, unspecified; G47.33 Obstructive sleep apnea (adult) (pediatric); L40.9 Psoriasis, unspecified; M77.9 Enthesopathy, unspecified; F41.9 Anxiety disorder, unspecified; F32.A Depression, unspecified; R32 Unspecified urinary incontinence; E66.01 Morbid (severe) obesity due to excess calories; Z68.42 Body mass index [BMI] 45.0-49.9, adult; Z20.822 Contact with and (suspected) exposure to COVID-19; Z95.828 Presence of other vascular implants and grafts; Z86.73 Personal history of transient ischemic attack (TIA), and cerebral infarction without residual deficits; Z79.899 Other long term (current) drug therapy; Z79.4 Long term (current) use of insulin; Z79.82 Long term (current) use of aspirin; Z79.02 Long term (current) use of antithrombotics/antiplatelets; Z90.49 Acquired absence of other specified parts of digestive tract; Z90.710 Acquired absence of both cervix and uterus; Z71.9 Counseling, unspecified; Z82.49 Family history of ischemic heart disease and other diseases of the circulatory system
CPT/HCPCS: 97116 ×2; 97530; 97162; 97535 ×3; 97165; 64999; 64448; 76942; 85025 ×2; 88300; 87635; 73560; 27447; G0378 ×3; C1713; C1776; J2250; J1100; J0690 ×3; J2405 ×2; J3010; J1170 ×2; J2795 ×2

== ENCOUNTER 2023-08-31 21:59 | Observation (INO) | payer MEDICARE, OTHER ==
[2023-08-31 23:59] LABS: Basophils # (A) 0.1 k/uL (0-0.2); Basophils % (A) 0 %; Eosinophils # (A) 0.4 k/uL (0-0.7); Eosinophils % (A) 2 %; HGB 13.6 gm/dL (11.4-16.0); Lymphocytes % (A) 18 %; MCH 29.5 pg (25.0-35.0); MCHC 33.1 g/dL (31.0-37.0); MCV 89.1 fL (80.0-100.0); Mean Platelet Volume 7.8; Monocytes # (A) 0.9 k/uL (0-1.0); Monocytes % (A) 5 %; Neutrophils # (A) 12.2 k/uL (1.3-7.7); Neutrophils % (A) 73 %; Platelet Count 224 k/uL (150-450); WBC 16.7 k/uL (3.8-10.6)
[2023-09-01 00:20] LABS: ALT 19 U/L (4-34); AST 32 U/L (14-36); African American GFR (CKD) >90 (>60 ml/min/1.73 sqM); Albumin 3.6 g/dL (3.5-5.0); Alkaline Phosphatase 130 U/L (38-126); Amylase 102 U/L (30-110); Anion Gap 6 mmol/L; Blood Urea Nitrogen 13 mg/dL (7-17); Calcium 8.7 mg/dL (8.4-10.2); Carbon Dioxide 27 mmol/L (22-30); Chloride 105 mmol/L (98-107); Glucose 133 mg/dL (74-99); Lipase 477 U/L (23-300); Non-African American GFR(CKD) >90 (>60 ml/min/1.73 sqM); Potassium 4.4 mmol/L (3.5-5.1); Sodium 138 mmol/L (137-145); Total Bilirubin 0.5 mg/dL (0.2-1.3); Total Protein 7.3 g/dL (6.3-8.2)
[2023-09-01] MEDS: LISINOPRIL-HCTZ 20-12.5 MG 1 EACH TAB PO STA (01:42)
[2023-09-01] MEDS: METOPROLOL TARTRATE 25 MG TAB PO STA (01:42)
--- NOTE | 2023-09-01 01:42 | ED ---
Abdominal Pain HPI - General Chief Complaint: Abdominal Pain Stated Complaint: Pancreatits Time Seen by Provider: 09/01/23 01:14 Source: patient, EMS Mode of arrival: EMS Limitations: no limitations - History of Present Illness Initial Comments: This is a 68-year-old female who presents as a transfer from [facility]. Patient has been complaining of abdominal pain ongoing for the last 3 to 4 days. She states that this pain also travels to her back. At [facility] she had studies remarkable for WBC of 13 and lipase in the 500s. She had a negative CT of the abdomen and pelvis with contrast. She was transferred to our facility due to lack of surgeon and GI on-call. Time of my evaluation the patient is resting comfortably and showing no acute signs of distress. She does have diffuse abdominal pain on palpation. She states that this pain is worse with different positions, particularly bending forward. She denies chest pain. She states that she only has shortness of breath when she has pain. This pain is not exertional. No nausea or vomiting. No diarrhea. No fever, chills. - Related Data Home Medications Medication Instructions Recorded Confirmed Clopidogrel [Plavix] 75 mg PO DAILY 07/18/17 06/24/21 FLUoxetine HCL [PROzac] 20 mg PO HS 07/18/17 06/24/21 Loratadine [Claritin] 10 mg PO DAILY PRN 07/18/17 06/24/21 busPIRone HCl [Buspar] 10 mg PO HS 07/18/17 06/24/21 traZODone HCL [Desyrel] 100 mg PO HS PRN 07/18/17 06/24/21 Insulin Aspart [NovoLOG Flexpen] 15 - 20 units SQ AC-TID 06/24/21 06/24/21 Insulin Glargine,Hum.rec.anlog 50 unit SQ DAILY 06/24/21 06/24/21 [Lantus Solostar Pen] Previous Rx's Medication Instructions Recorded Lisinopril-Hctz 20-12.5 mg 1 tab PO BID #60 tab 07/19/17 [Zestoretic 20-12.5] Atorvastatin [Lipitor] 80 mg PO DAILY #30 tab 10/15/17 Aspirin [Adult Low Dose Aspirin EC] 81 mg PO BID 30 Days #60 tab 07/01/21 HYDROcodone/APAP 7.5-325MG [[place] 1 - 2 tab PO Q6H PRN #32 tab 07/01/21 7.5-325] Ondansetron Odt [Zofran Odt] 1 tab PO Q8HR PRN #10 tab 07/01/21 Sennosides [Senokot] 2 tab PO DAILY PRN #60 tablet 07/01/21 Metoprolol Tartrate [Lopressor] 25 mg PO BID tab 07/04/21 Pregabalin [Lyrica] 100 mg PO TID #9 cap 07/04/21 Allergies Allergy/AdvReac Type Severity Reaction Status Date / Time No Known Allergies Allergy Verified 08/31/23 22:09 Review of Systems ROS Statement: Those systems with pertinent positive or pertinent negative responses have been documented in the HPI. ROS Other: All systems not noted in ROS Statement are negative. 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 History of Any Multi-Drug Resistant Organisms: None Reported Past Surgical History: Appendectomy, Cholecystectomy, Heart Catheterization, Hysterectomy Additional Past Surgical History / Comment(s): 07/16/17 L endarterectomy with stent, previous R caratid endartectomy about 16yrs ago, bilateral feet bone spurs removed, Left total knee arthroplasty. Past Anesthesia/Blood Transfusion Reactions: No Reported Reaction Past Psychological History: Anxiety, Depression Smoking Status: Never smoker Past Alcohol Use History: None Reported Past Drug Use History: Marijuana - Past Family History Father Family Medical History: No Reported History Additional Family Medical History / Comment(s): Father was very healthy and from "old age" at the age of 90yrs. Mother Family Medical History: Myocardial Infarction ([place]) Additional Family Medical History / Comment(s): Mother of a [place] at the age of 78yrs. Daughter(s) Family Medical History: Deep Vein Thrombosis (DVT) Additional Family Medical History / Comment(s): DVT IN LEG General Exam Limitations: no limitations General appearance: alert, in no apparent distress Head exam: Present: atraumatic, normocephalic Eye exam: Present: normal appearance Neck exam: Present: normal inspection Respiratory exam: Present: normal lung sounds bilaterally. Absent: respiratory distress, wheezes, rales, rhonchi, stridor Cardiovascular Exam: Present: regular rate, normal rhythm, normal heart sounds. Absent: systolic murmur, diastolic murmur, rubs, gallop, clicks GI/Abdominal exam: Present: soft, tenderness. Absent: distended, guarding, rebound, rigid Neurological exam: Present: alert, oriented X3 Psychiatric exam: Present: normal affect, normal mood Skin exam: Present: warm, dry Course Vital Signs 08/31/23 09/01/23 22:03 01:26 Temperature 98.3 F Pulse Rate 88 75 Respiratory 18 16 Rate Blood Pressure 145/53 186/73 O2 Sat by Pulse 97 95 Oximetry Medical Decision Making - Medical Decision Making Was pt. sent in by a medical professional or institution (, PA, ARRANGER ASSEMBLER, urgent care, hospital, or [facility]...) When possible be specific @ -No Did you speak to anyone other than the patient for history (EMS, parent, family, police, friend...)? What history was obtained from this source @ -No Did you review nursing and triage notes (agree or disagree)? Why? @ -I reviewed and agree with nursing and triage notes Were old charts reviewed (outside hosp., previous admission, EMS record, old EKG, old radiological studies, urgent care reports/EKG's, [facility] records)? Report findings @ -Documentation from [facility] is reviewed Differential Diagnosis (chest pain, altered mental status, abdominal pain women, abdominal pain men, vaginal bleeding, weakness, fever, dyspnea, syncope, headache, dizziness, GI bleed, back pain, seizure, CVA, palpatations, mental health, musculoskeletal)? @ -MDM Differential Abdominal Pain Women: Appendicitis, Cholecystitis, diverticulosis, ischemic bowel, pancreatitis, hepatitis, UTI, gastroenteritis, AAA, incarcerated hernia, bowel obstruction, constipation, inflammatory bowel, hepatitis, peptic ulcer disease, splenic infarction, perforated viscus, vulvitis, ovarian torsion, PID, kidney stone, pl acenta abruption... This is not meant to be an all-inclusive list EKG interpreted by me (3pts min.). @ -EKG shows sinus rhythm with sinus arrhythmia. Ventricular rate 69. ND interval 169. QRS 152. QT 481. QTc 500. Left bundle branch block. X-rays interpreted by me (1pt min.). @ -None done CT interpreted by me (1pt min.). @ -None done U/S interpreted by me (1pt. min.). @ -None done What testing was considered but not performed or refused? (CT, X-rays, U/S, labs)? Why? @ -None What meds were considered but not given or refused? Why? @ -None Did you discuss the management of the patient with other professionals (professionals i.e. DrRikki, PA, ARRANGER ASSEMBLER, lab, RT, psych nurse, social work supervisor, safety relief valve technician, teacher, founder and chief executive officer, case reviewer)? Give summary @ -My attending spoke with the [facility] provider on-call who accepted admission Was smoking cessation discussed for >3mins.? @ -No Was critical care preformed (if so, how long)? @ -No Were there social determinants of health that impacted care today? How? (Homelessness, low income, unemployed, alcoholism, drug addiction, transportation, low edu. Level, literacy, decrease access to med. care, m[facility], rehab)? @ -No Was there de-escalation of care discussed even if they declined (Discuss DNR or withdrawal of care, Hospice)? DNR status @ -No What co-morbidities impacted this encounter? (DM, HTN, Smoking, COPD, CAD, Cancer, CVA, ARF, Chemo, Hep., AIDS, mental health diagnosis, sleep apnea, morbid obesity)? @ -Diabetes, hypertension, hyperlipidemia Was patient admitted / discharged? Hospital course, mention meds given and route, prescriptions, significant lab abnormalities, going to OR and other pertinent info. @ -68-year-old female presenting as a transfer from [facility] for pancreatitis. She has had epigastric pain with radiation to the back for the last 3 days. She was found to have a in the 500s at [facility]. Physical exam were conducted. Patient has nonspecific abdominal tenderness. WBC 16.7. Lipase 477. EKG and troponin are obtained. Negative troponin EKG shows no acute ischemic changes. Serial troponins are ordered. Patient will be admitted for observation. Patient is agreeable with this plan. I discussed this case with my attending Undiagnosed new problem with uncertain prognosis? @ -No Drug Therapy requiring intensive monitoring for toxicity (Heparin, Nitro, Insulin, Cardizem)? @ -No Were any procedures done? @ -No Diagnosis/symptom? @ -Pancreatitis, Abdominal pain Acute, or Chronic, or Acute on Chronic? @ -Acute Uncomplicated (without systemic symptoms) or Complicated (systemic symptoms)? @ -Complicated Side effects of treatment? @ -No Exacerbation, Progression, or Severe Exacerbation? @ -No Poses a threat to life or bodily function? How? (Chest pain, [place], [place], pneumonia, PE, COPD, DKA, ARF, appy, cholecystitis, CVA, Diverticulitis, Homicidal, Suicidal, threat to staff... and all critical care pts) @ -Yes - Lab Data Result diagrams: 08/31/23 23:45 08/31/23 23:45 Lab Results 08/31/23 08/31/23 09/01/23 Range/Units 23:45 23:45 01:48 WBC 16.7 H (3.8-10.6) k/uL RBC 4.60 (3.80-5.40) m/uL Hgb 13.6 (11.4-16.0) gm/dL Hct 41.0 (34.0-46.0) % MCV 89.1 (80.0-100.0) fL MCH 29.5 (25.0-35.0) pg MCHC 33.1 (31.0-37.0) g/dL RDW 13.0 (11.5-15.5) % Plt Count 224 (150-450) k/uL MPV 7.8 Neutrophils % 73 % Lymphocytes % 18 % Monocytes % 5 % Eosinophils % 2 % Basophils % 0 % Neutrophils # 12.2 H (1.3-7.7) k/uL Lymphocytes # 3.0 (1.0-4.8) k/uL Monocytes # 0.9 (0-1.0) k/uL Eosinophils # 0.4 (0-0.7) k/uL Basophils # 0.1 (0-0.2) k/uL Sodium 138 (137-145) mmol/L Potassium 4.4 (3.5-5.1) mmol/L Chloride 105 (98-107) mmol/L Carbon Dioxide 27 (22-30) mmol/L Anion Gap 6 mmol/L BUN 13 (7-17) mg/dL Creatinine 0.59 (0.52-1.04) mg/dL Est GFR (CKD-EPI)AfAm >90 (>60 ml/min/1.73 sqM) Est GFR (CKD-EPI)NonAf >90 (>60 ml/min/1.73 sqM) Glucose 133 H (74-99) mg/dL Calcium 8.7 (8.4-10.2) mg/dL Total Bilirubin 0.5 (0.2-1.3) mg/dL AST 32 (14-36) U/L ALT 19 (4-34) U/L Alkaline Phosphatase 130 H (38-126) U/L Troponin I <0.012 (0.000-0.034) ng/mL Total Protein 7.3 (6.3-8.2) g/dL Albumin 3.6 (3.5-5.0) g/dL Amylase 102 (30-110) U/L Lipase 477 H (23-300) U/L Disposition Clinical Impression: Pancreatitis, Abdominal pain Disposition: ADMITTED IP TO THIS HOSP Condition: Fair Time of Disposition: 02:35
[2023-09-01] MEDS ORDERED: ACETAMINOPHEN TAB 325 MG TAB PO PRN (02:33)
[2023-09-01] MEDS ORDERED: NALOXONE 0.4 MG/ML 1 ML VIAL IV PRN (02:33)
[2023-09-01] MEDS: busPIRone HCl 10 MG TAB PO STA (03:43)
[2023-09-01] MEDS: traZODone HCL 100 MG TAB PO SCH (03:43)
[2023-09-01] MEDS: SODIUM CHLORIDE 0.9% 1,000 ML IV SCH (03:47)
[2023-09-01] MEDS: HYDROcodone/APAP 7.5-325MG 1 EACH TAB PO ONE (03:47)
[2023-09-01 06:18] LABS: Glucose,Whole Blood 150 mg/dL (70-110)
[2023-09-01] MEDS: HYDROcodone/APAP 7.5-325MG 1 EACH TAB PO PRN (08:54)
[2023-09-01] MEDS ORDERED: ALBUTEROL HFA INHALER INHALATION PRN (10:55)
[2023-09-01] MEDS ORDERED: busPIRone HCl 10 MG TAB PO PRN (10:55)
[2023-09-01] MEDS: ENOXAPARIN 40 MG/0.4 ML SYRINGE SQ SCH (12:39)
[2023-09-01] MEDS: amLODIPine 5 MG TAB PO SCH (12:39)
[2023-09-01] MEDS: LISINOPRIL-HCTZ 20-12.5 MG 1 EACH TAB PO SCH (12:41)
[2023-09-01] MEDS: OXYBUTYNIN XL 5 MG TAB.ER.24 PO SCH (12:41)
[2023-09-01 12:50] LABS: Glucose,Whole Blood 131 mg/dL (70-110)
[2023-09-01] MEDS: INSULIN DETEMIR (LEVEMIR) 100 UNIT/ML SYR SQ SCH (12:50)
--- NOTE | 2023-09-01 14:47 | P.HPIM ---
History of Present Illness H&P Date: 09/01/23 Chief Complaint: Epigastric pain This is a pleasant 68-year-old patient, follows with Dr. Pietro Gallegos. Chronic stable medical conditions include diabetes, fibromyalgia, hypertension, hyperlipidemia, obstructive sleep apnea, lower back pain with bilateral sciatica, insomnia, psoriasis anxiety depression. Patient presents with 3 to 4 days of upper abdominal and epigastric pain. Nausea. No fever no chills. No change in bowel pattern. Patient initially went to the [facility]. CT scan of the abdomen was unremarkable. Some elevation in lipase. Sent down here. Patient does take an aspirin. Patient had another colonoscopy in the past but no EGD. Still having significant pain. Review of systems: GEN.: Tired EYES: None HEENT: None NECK: None RESPIRATORY: None CARDIOVASCULAR: None GASTROINTESTINAL: As above GENITOURINARY: None MUSCULOSKELETAL: Joint pains LYMPHATICS: None HEMATOLOGICAL: None PSYCHIATRY: None NEUROLOGICAL: None Social history: Lives alone in an apartment. Non-smoker. No alcohol. Takes marijuana at night for sleeping. Physical examination: VITAL SIGNS: 97.6, 55, 18, 165/80, 96% room air GENERAL: BMI 44.9, reclining bed awake not in distress. EYES: Pupils equal. Conjunctiva airam l. HEENT: External appearance of nose and ears normal, oral cavity grossly normal. NECK: JVD not raised; masses not palpable. HEART: First and second heart sounds are normal; no edema. LUNGS: Respiratory rate normal; clear to auscultation. ABDOMEN: Soft, epigastric tenderness, no guarding rigidity, liver spleen not palpable, no masses palpable. PSYCH: Alert and oriented x3; mood and affect airam l. MUSCULOSKELETAL:No Clubbing/cyanosis;muscles-grossly intact NEUROLOGICAL: Cranial nerves grossly intact; no facial asymmetry, power and sensation grossly intact. LYMPHATICS: No lymph nodes palpable in the axilla and neck INVESTIGATIONS, reviewed in the clinical context: August 31: White count 6.7 hemoglobin 13.6 platelets 224 sodium 138 potassium 4.4 creatinine 0.59 Troponin I x 3 less than 0.012 Amylase [address] scan abdomen pelvis from [[place]]: Unremarkable Assessment plan: -Acute onset of epigastric pain for 3 to 4 days. Rather significantly tender. Nausea. No fever no chills. Some elevation of lipase. This could be acute pancreatitis. Patient also does take aspirin, Plavix, Celebrex. Underlying gastritis/peptic ulcer disease cannot be ruled out. Patient currently on a liquid diet. GI consulted. With review to possible EGD. -Hyperlipidemia Lipitor -Essential hypertension Amlodipine Zestoretic -Diabetes mellitus type 2, chronically insulin Cut back dose of Lantus. Follow sliding scale. -GERD Prilosec -Chronic urine incontinence Ditropan -Primary osteoarthritis with bilateral sciatica [place] 7.5. -Anxiety depression BuSpar Takes, Plavix, Celebrex, which have been held. Also takes aspirin as needed. IV fluids. Liquid diet. GI consulted. Add PPI. May need possible EGD. 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 History of Any Multi-Drug Resistant Organisms: None Reported Past Surgical History: Appendectomy, Cholecystectomy, Heart Catheterization, Hysterectomy Additional Past Surgical History / Comment(s): 07/16/17 L endarterectomy with stent, previous R caratid endartectomy about 16yrs ago, bilateral feet bone spurs removed, Left total knee arthroplasty. Past Anesthesia/Blood Transfusion Reactions: No Reported Reaction Past Psychological History: Anxiety, Depression Smoking Status: Never smoker Past Alcohol Use History: None Reported Past Drug Use History: Marijuana - Past Family History Father Family Medical History: No Reported History Additional Family Medical History / Comment(s): Father was very healthy and from "old age" at the age of 90yrs. Mother Family Medical History: Myocardial Infarction ([place]) Additional Family Medical History / Comment(s): Mother of a [place] at the age of 78yrs. Daughter(s) Family Medical History: Deep Vein Thrombosis (DVT) Additional Family Medical History / Comment(s): DVT IN LEG Medications and Allergies Home Medications Medication Instructions Recorded Confirmed Type Clopidogrel [Plavix] 75 mg PO DAILY 07/18/17 09/01/23 History busPIRone HCl [Buspar] 10 mg PO HS 07/18/17 09/01/23 History traZODone HCL [Desyrel] 100 - 200 mg PO HS 07/18/17 09/01/23 History Lisinopril-Hctz 20-12.5 mg 1 tab PO BID #60 tab 07/19/17 09/01/23 Rx [Zestoretic 20-12.5] Insulin Aspart [NovoLOG Flexpen] See Protocol SQ AC-TID 06/24/21 09/01/23 History Insulin Glargine,Hum.rec.anlog 50 unit SQ DAILY 06/24/21 09/01/23 History [Lantus Solostar Pen] Adalimumab [Humira(Cf) Pen] 40 mg SQ Q14D 09/01/23 09/01/23 History Albuterol Sulfate [Albuterol 2 puff PO RT-Q6H PRN 09/01/23 09/01/23 History Sulfate Hfa] Atorvastatin [Lipitor] 80 mg PO HS 09/01/23 09/01/23 History Celecoxib [CeleBREX] 200 mg PO BID 09/01/23 09/01/23 History Cetirizine HCl [Zyrtec] 10 mg PO DAILY PRN 09/01/23 09/01/23 History Gabapentin 600 mg PO TID 09/01/23 09/01/23 History HYDROcodone/APAP 7.5-325MG [[place] 1 tab PO BID PRN 09/01/23 09/01/23 History 7.5-325] Ketoconazole 2% Cream [Nizoral 2%] 1 applic TOPICAL BID 09/01/23 09/01/23 History Omeprazole [PriLOSEC] 40 mg PO DAILY 09/01/23 09/01/23 History Oxybutynin Xl [Ditropan XL] 5 mg PO DAILY 09/01/23 09/01/23 History Polymyxin B-Trimeth Sulf Ophth 1 drop BOTH EYES DAILY 09/01/23 09/01/23 History [Polytrim Opthalmic] amLODIPine [Norvasc] 5 mg PO DAILY 09/01/23 09/01/23 History busPIRone HCl [Buspar] 10 mg PO DAILY PRN 09/01/23 09/01/23 History Allergies Allergy/AdvReac Type Severity Reaction Status Date / Time No Known Allergies Allergy Verified 09/01/23 07:36 Physical Exam Vitals: Vital Signs Temp Pulse Resp BP Pulse Ox 09/01/23 09:56 57 L 20 160/62 94 L 09/01/23 07:40 97.6 F 55 L 18 165/80 96 09/01/23 06:00 53 L 18 145/58 93 L 09/01/23 05:00 51 L 17 129/55 95 09/01/23 01:26 75 16 186/73 95 08/31/23 22:03 98.3 F 88 18 145/53 97 Intake and Output 08/31/23 09/01/23 09/01/23 22:59 06:59 14:59 Other: Weight 104.326 kg Results CBC & Chem 7: 08/31/23 23:45 08/31/23 23:45 Labs: Abnormal Lab Results - Last 24 Hours (Table) 08/31/23 08/31/23 09/01/23 Range/Units 23:45 23:45 06:16 WBC 16.7 H (3.8-10.6) k/uL Neutrophils # 12.2 H (1.3-7.7) k/uL Glucose 133 H (74-99) mg/dL POC Glucose (mg/dL) 150 H (70-110) mg/dL Alkaline Phosphatase 130 H (38-126) U/L Lipase 477 H (23-300) U/L
--- NOTE | 2023-09-01 17:04 | P.CONS ---
History of Present Illness - Reason for Consult Consult date: 09/01/23 Abdominal pain Requesting physician: Janusz Harley - Chief Complaint Abdominal pain - History of Present Illness Pleasant 68-year-old female who was transferred from [facility] for complaints of abdominal pain and findings of elevated lipase concerning for pancreatitis. Patient was transferred to for GI evaluation. She states she is having upper abdominal pain radiating into her back that began 1 to 2 days ago. No previous history of pancreatitis. Past medical history includes hyperlipidemia, hypertension, diabetes mellitus, GERD, urinary incontinence, an xiety and depression. She takes Prilosec daily. Denies any history of ulcer. She reports no nausea or vomiting. Pain is in the epigastric region over the last 3 to 4 days duration. No previous history of pancreatitis, no history of alcohol abuse, she is status post cholecystectomy many years ago. No new medications. She denies taking NSAIDs other than baby aspirin, she is on Plavix. She denies taking Celebrex although it is listed in her home medications. CT abdomen pelvis from [facility] was reviewed with no acute findings. She had mildly elevated lipase of 515 with normal LFTs at [facility]., Repeat lipase 477. Total bilirubin 0.5 AST 32 ALT 19 alkaline phosphatase 130. Patient states abdominal pain has improved some, she continues to have no nausea or vomiting. Review of Systems REVIEW OF SYSTEMS: CARDIOPULMONARY: No chest pain or shortness of breath. Gastrointestinal: Epigastric pain, radiating to back. No nausea or vomiting. No hematemesis, coffee-ground emesis. No rectal bleeding, or melena. GENITOURINARY: No dysuria or hematuria. Urinary incontinence. MUSCULOSKELETAL: Reports normal range of motion., Joint pain. SKIN: No rashes. No jaundice. ENDOCRINE: No chills, fevers. No excessive weight gain or loss. No polydipsia or polyuria. PSYCHIATRIC: Unremarkable. NEUROLOGY: No change in mental status. Denies dizziness, headache. ENT: Vision unremarkable. CONSTITUTIONAL: No recent weight loss. No fever, chills, night sweats. 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 History of Any Multi-Drug Resistant Organisms: None Reported Past Surgical History: Appendectomy, Cholecystectomy, Heart Catheterization, Hysterectomy Additional Past Surgical History / Comment(s): 07/16/17 L endarterectomy with stent, previous R caratid endartectomy about 16yrs ago, bilateral feet bone spurs removed, Left total knee arthroplasty. Past Anesthesia/Blood Transfusion Reactions: No Reported Reaction Past Psychological History: Anxiety, Depression Smoking Status: Never smoker Past Alcohol Use History: None Reported Past Drug Use History: Marijuana - Past Family History Father Family Medical History: No Reported History Additional Family Medical History / Comment(s): Father was very healthy and from "old age" at the age of 90yrs. Mother Family Medical History: Myocardial Infarction ([place]) Additional Family Medical History / Comment(s): Mother of a [place] at the age of 78yrs. Daughter(s) Family Medical History: Deep Vein Thrombosis (DVT) Additional Family Medical History / Comment(s): DVT IN LEG Medications and Allergies Home Medications Medication Instructions Recorded Confirmed Type Clopidogrel [Plavix] 75 mg PO DAILY 07/18/17 09/01/23 History busPIRone HCl [Buspar] 10 mg PO HS 07/18/17 09/01/23 History traZODone HCL [Desyrel] 100 - 200 mg PO HS 07/18/17 09/01/23 History Lisinopril-Hctz 20-12.5 mg 1 tab PO BID #60 tab 07/19/17 09/01/23 Rx [Zestoretic 20-12.5] Insulin Aspart [NovoLOG Flexpen] See Protocol SQ AC-TID 06/24/21 09/01/23 History Insulin Glargine,Hum.rec.anlog 50 unit SQ DAILY 06/24/21 09/01/23 History [Lantus Solostar Pen] Adalimumab [Humira(Cf) Pen] 40 mg SQ Q14D 09/01/23 09/01/23 History Albuterol Sulfate [Albuterol 2 puff PO RT-Q6H PRN 09/01/23 09/01/23 History Sulfate Hfa] Atorvastatin [Lipitor] 80 mg PO HS 09/01/23 09/01/23 History Celecoxib [CeleBREX] 200 mg PO BID 09/01/23 09/01/23 History Cetirizine HCl [Zyrtec] 10 mg PO DAILY PRN 09/01/23 09/01/23 History Gabapentin 600 mg PO TID 09/01/23 09/01/23 History HYDROcodone/APAP 7.5-325MG [[place] 1 tab PO BID PRN 09/01/23 09/01/23 History 7.5-325] Ketoconazole 2% Cream [Nizoral 2%] 1 applic TOPICAL BID 09/01/23 09/01/23 History Omeprazole [PriLOSEC] 40 mg PO DAILY 09/01/23 09/01/23 History Oxybutynin Xl [Ditropan XL] 5 mg PO DAILY 09/01/23 09/01/23 History Polymyxin B-Trimeth Sulf Ophth 1 drop BOTH EYES DAILY 09/01/23 09/01/23 History [Polytrim Opthalmic] amLODIPine [Norvasc] 5 mg PO DAILY 09/01/23 09/01/23 History busPIRone HCl [Buspar] 10 mg PO DAILY PRN 09/01/23 09/01/23 History Allergies Allergy/AdvReac Type Severity Reaction Status Date / Time No Known Allergies Allergy Verified 09/01/23 07:36 Physical Exam Vitals: Vital Signs Temp Pulse Resp BP Pulse Ox 09/01/23 12:51 66 18 182/66 09/01/23 09:56 57 L 20 160/62 94 L 09/01/23 07:40 97.6 F 55 L 18 165/80 96 09/01/23 06:00 53 L 18 145/58 93 L 09/01/23 05:00 51 L 17 129/55 95 09/01/23 01:26 75 16 186/73 95 08/31/23 22:03 98.3 F 88 18 145/53 97 Intake and Output 08/31/23 09/01/23 09/01/23 22:59 06:59 14:59 Other: Weight 104.326 kg General appearance: The patient is alert, oriented, appears in no acute distress. HET: Head is normocephalic and atraumatic. Conjunctiva pink. Sclera anicteric. Neck: Supple without lymphadenopathy. Trachea midline. Heart: Regular. Lungs: Equal expansion, normal respiratory effort. Abdomen: Soft, epigastric tenderness, nondistended with bowel sounds. No guarding or rigidity. Skin: No rashes. No jaundice. Extremities: Normal skin color and turgor. No pedal edema. Neurological: No focal deficits. Alert and oriented x3. Results CBC & Chem 7: 08/31/23 23:45 08/31/23 23:45 Labs: Abnormal Lab Results - Last 24 Hours (Table) 08/31/23 08/31/23 09/01/23 Range/Units 23:45 23:45 06:16 WBC 16.7 H (3.8-10.6) k/uL Neutrophils # 12.2 H (1.3-7.7) k/uL Glucose 133 H (74-99) mg/dL POC Glucose (mg/dL) 150 H (70-110) mg/dL Alkaline Phosphatase 130 H (38-126) U/L Lipase 477 H (23-300) U/L 09/01/23 Range/Units 12:47 WBC (3.8-10.6) k/uL Neutrophils # (1.3-7.7) k/uL Glucose (74-99) mg/dL POC Glucose (mg/dL) 131 H (70-110) mg/dL Alkaline Phosphatase (38-126) U/L Lipase (23-300) U/L Assessment and Plan (1) Pancreatitis Narrative/Plan: 68-year-old female presenting from outside hospital for epigastric pain with mildly elevated lipase consistent with pancreatitis. Unclear etiology, no history of alcohol abuse, no recent medications, and patient is status post cholecystectomy many years ago. Need to also consider abdominal pain could be related to epigastric discomfort from GERD, peptic ulcer disease or other etiology. Will treat symptomatically at this time with IV fluids, pain medication, Protonix. Will consider possible endoscopic evaluation if pain does not continue to improve. Current Visit: Yes Status: Acute Code(s): K85.90 - ACUTE PANCREATITIS WITHOUT NECROSIS OR INFECTION, UNSP SNOMED Code(s): 04745554 (2) Abdominal pain Current Visit: Yes Status: Acute Code(s): R10.9 - UNSPECIFIED ABDOMINAL PAIN SNOMED Code(s): 85956853 Plan: 1. Continue symptomatic and supportive care 2. IV hydration 2. Pain medication as needed 3. Antiemetics as needed 4. Patient may have full liquid diet, n.p.o. after midnight 5. Protonix 40 mg daily 6. Consider possible endoscopic evaluation if abdominal pain does not continue to improve Thank you for this consultation, we will continue to follow. Dr. Raiza Hartley I agree with the dictator's note, documented as a scribe by Sadie Odonnell.
[2023-09-01] MEDS: PANTOPRAZOLE 40 MG TABLET PO SCH (17:57)
[2023-09-01] MEDS: ONDANSETRON 4 MG/2 ML VIAL IVP PRN (20:09)
[2023-09-01] MEDS: busPIRone HCl 10 MG TAB PO SCH (20:09)
[2023-09-01] MEDS: MORPHINE SULFATE 4 MG/ML SYRINGE IV PRN (20:10)
[2023-09-01] MEDS ORDERED: traZODone HCL 100 MG TAB PO SCH (21:00)
[2023-09-02] MEDS: HYDROcodone/APAP 7.5-325MG 1 EACH TAB PO PRN (02:54)
[2023-09-02 06:23] LABS: Glucose,Whole Blood 154 mg/dL (70-110)
[2023-09-02 12:25] LABS: Glucose,Whole Blood 236 mg/dL (70-110)
--- NOTE | 2023-09-02 12:55 | P.PN ---
Subjective Progress Note Date: 09/02/23 Principal diagnosis: Pancreatitis Pleasant 68-year-old female who was transferred from [facility] for complaints of abdominal pain and findings of elevated lipase concerning for pancreatitis. Patient was transferred to for GI evaluation. She states she is having upper abdominal pain radiating into her back that began 1 to 2 days ago. No previous history of pancreatitis. Past medical history includes hyperlipidemia, hypertension, diabetes mellitus, GERD, urinary incontinence, anxiety and depression. She takes Prilosec daily. Denies any history of ulcer. She reports no nausea or vomiting. Pain is in the epigastric region over the last 3 to 4 days duration. No previous history of pancreatitis, no history of alcohol abuse, she is status post cholecystectomy many years ago. No new medications. She denies taking NSAIDs other than baby aspirin, she is on P lavix. She denies taking Celebrex although it is listed in her home medications. CT abdomen pelvis from [facility] was reviewed with no acute findings. She had mildly elevated lipase of 515 with normal LFTs at [facility]., Repeat lipase 477. Total bilirubin 0.5 AST 32 ALT 19 alkal ine phosphatase 130. Patient states abdominal pain has improved some, she continues to have no nausea or vomiting. 09/02/2023 Patient was seen and examined today as a follow-up. She states pain has improved quite a bit. No nausea or vomiting. Mostly in the epigastric and right upper quadrant region. Today's lipase 526. Objective - Vital Signs Vital signs: Vital Signs Temp 98.2 F 09/02/23 07:00 Pulse 78 09/02/23 07:00 Resp 16 09/02/23 07:00 BP 158/66 09/02/23 07:00 Pulse Ox 93 L 09/02/23 07:00 FiO2 Intake & Output 09/01/23 09/02/23 09/02/23 18:59 06:59 18:59 Output Total 800 Balance -800 Weight 104.326 kg Output: Urine 800 Other: # Voids 1 - Exam General appearance: The patient is alert, oriented, appears in no acute distress. HET: Head is normocephalic and atraumatic. Conjunctiva pink. Sclera anicteric. Neck: Supple without lymphadenopathy. Abdomen: Soft, obese, epigastric and right upper quadrant tenderness, nondistended with bowel sounds. Extremities: Normal skin color and turgor. No pedal edema Skin: No rashes, no jaundice Neurological: No focal deficits. Alert and oriented. - Labs CBC & Chem 7: 08/31/23 23:45 08/31/23 23:45 Labs: Abnormal Lab Results - Last 24 Hours (Table) 09/01/23 09/02/23 Range/Units 12:47 06:22 POC Glucose (mg/dL) 131 H 154 H (70-110) mg/dL Assessment and Plan (1) Pancreatitis Narrative/Plan: 68-year-old female presenting from outside hospital for epigastric pain with mildly elevated lipase consistent with pancreatitis. Unclear etiology, no history of alcohol abuse, no recent medications, and patient is status post cholecystectomy many years ago. Need to also consider abdominal pain could be related to epigastric discomfort from GERD, peptic ulcer disease or other etiology. Will treat symptomatically at this time with IV fluids, pain medication, Protonix. Unclear etiology of pancreatitis, symptoms seem to be imp roving. Will get WILLIAM, triglyceride, IgG4. No plans on endoscopic evaluation Current Visit: Yes Status: Acute Code(s): K85.90 - ACUTE PANCREATITIS WITHOUT NECROSIS OR INFECTION, UNSP SNOMED Code(s): 57226131 (2) Abdominal pain Current Visit: Yes Status: Acute Code(s): R10.9 - UNSPECIFIED ABDOMINAL PAIN SNOMED Code(s): 04543644 Plan: 1. Continue symptomatic and supportive care 2. IV hydration 2. Pain medication as needed 3. Antiemetics as needed 4. Patient may have full liquid diet, advance as tolerated 5. Protonix 40 mg daily 6. No indication or plans for endoscopic evaluation 7. IgG4, WILLIAM, triglycerides ordered Thank you for this consultation, we will continue to follow. Dr. Raiza Hartley I agree with the dictator's note, documented as a scribe by Sadie Odonnell.
--- NOTE | 2023-09-02 16:59 | P.PN ---
Progress Note - Text Progress Note Date: 09/02/23 Chief Complaint: Epigastric pain This is a pleasant 68-year-old patient, follows with Dr. Pietro Gallegos. Chronic stable medical conditions include diabetes, fibromyalgia, hypertension, hyperlipidemia, obstructive sleep apnea, lower back pain with bilateral sciatica, insomnia, psoriasis anxiety depression. Patient presents with 3 to 4 days of upper abdominal and epigastric pain. Nausea. No fever no chills. No change in bowel pattern. Patient initially went to the [facility]. CT scan of the abdomen was unremarkable. Some elevation in lipase. Sent down here. Patient does take an aspirin. Patient had another colonoscopy in the past but no EGD. Still having significant pain. September 02: Admitted with epigastric pain. [place] to be acute pancreatitis. Though gastric pathology cannot be ruled out. This morning patient still having significant abdominal pain. Lipase at 526. Patient put on full liquid diet. Abdominal tenderness seems to be somewhat out of proportion to the lipase. Will follow-up with GI. Active Medications Acetaminophen (Acetaminophen Tab 325 Mg Tab) 650 mg PO Q6HR PRN PRN Reason: Mild Pain or Fever > 100.5 Hydrocodone Bitart/Acetaminophen (Hydrocodone/Apap 7.5-325mg 1 Each Tab) 1 each PO BID PRN PRN Reason: Pain Last Admin: 09/02/23 02:54 Dose: 1 each Albuterol Sulfate (Albuterol Hfa Inhaler) 2 puff INHALATION RT-Q6H PRN PRN Reason: Shortness Of Breath Amlodipine Besylate (Amlodipine 5 Mg Tab) 5 mg PO DAILY [facility] Last Admin: 09/02/23 06:40 Dose: 5 mg Buspirone HCl (Buspirone Hcl 10 Mg Tab) 10 mg PO DAILY PRN PRN Reason: Anxiety Buspirone HCl (Buspirone Hcl 10 Mg Tab) 10 mg PO HS [facility] Last Admin: 09/01/23 20:09 Dose: 10 mg Enoxaparin Sodium (Enoxaparin 40 Mg/0.4 Ml Syringe) 40 mg SQ DAILY [facility] Last Admin: 09/02/23 16:22 Dose: Not Given Lisinopril/HCTZ (Lisinopril-Hctz 20-12.5 Mg 1 Each Tab) 1 each PO BID [facility] Last Admin: 09/02/23 08:06 Dose: 1 each Sodium Chloride (Saline 0.9%) 1,000 mls @ 75 mls/hr IV .[id number] [facility] Last Admin: 09/02/23 06:43 Dose: 75 mls/hr Insulin Detemir (Insulin Detemir (Levemir) 100 Unit/Ml Syr) 30 unit SQ DAILY@0700 [facility] Last Admin: 09/02/23 06:33 Dose: Not Given Ketorolac Tromethamine (Ketorolac 15 Mg/Ml 1 Ml Vial) 15 mg IVP Q6HR PRN PRN Reason: Moderate Pain (Scale 4 to 6) Stop: 09/04/23 02:34 Morphine Sulfate (Morphine Sulfate 4 Mg/Ml Syringe) 4 mg IV Q4HR PRN PRN Reason: Severe Pain (Scale 7 to 10) Last Admin: 09/02/23 11:57 Dose: 4 mg Naloxone HCl (Naloxone 0.4 Mg/Ml 1 Ml Vial) 0.2 mg IV Q2M PRN PRN Reason: Opioid Reversal Ondansetron HCl (Ondansetron 4 Mg/2 Ml Vial) 4 mg IVP Q8HR PRN PRN Reason: Nausea And Vomiting Last Admin: 09/01/23 20:09 Dose: 4 mg Oxybutynin Chloride (Oxybutynin Xl 5 Mg Tab.Er.24) 5 mg PO DAILY [facility] Last Admin: 09/02/23 08:07 Dose: 5 mg Pantoprazole Sodium (Pantoprazole 40 Mg Tablet) 40 mg PO AC-BID [facility] Last Admin: 09/02/23 06:40 Dose: 40 mg Trazodone HCl (Trazodone Hcl 100 Mg Tab) 100 mg PO HS [facility] Last Admin: 09/01/23 20:09 Dose: 100 mg Social history: Lives alone in an apartment. Non-smoker. No alcohol. Takes marijuana at night for sleeping. Physical examination: VITAL SIGNS: 97.7, 62, 16, 158 x 66, 93% room air GENERAL: Reclining in bed EYES: Pupils equal. Conjunctiva airam l. HEENT: External appearance of nose and ears normal, oral cavity grossly normal. NECK: JVD not raised; masses not palpable. HEART: First and second heart sounds are normal; no edema. LUNGS: Respiratory rate normal; clear to auscultation. ABDOMEN: Soft, epigastric tenderness, no guarding rigidity, liver spleen not palpable, no masses palpable. PSYCH: Alert and oriented x3; mood and affect airam l. MUSCULOSKELETAL:No Clubbing/cyanosis;muscles-grossly intact INVESTIGATIONS, reviewed in the clinical context: September 02: Lipase 526 August 31: White count 6.7 hemoglobin 13.6 platelets 224 sodium 138 potassium 4.4 creatinine 0.59 Troponin I x 3 less than 0.012 Amylase [address] scan abdomen pelvis from [[facility]]: Unremarkable Assessment plan: -Acute onset of epigastric pain for 3 to 4 days. Rather significantly tender. Nausea. No fever no chills. Some elevation of lipase. This could be acute pancreatitis. Patient also does take aspirin, Plavix, Celebrex. Underlying gastritis/peptic ulcer disease cannot be ruled out. On full liquid diet per GI. Follow clinically. -Hyperlipidemia Lipitor -Essential hypertension Amlodipine Zestoretic -Diabetes mellitus type 2, chronically insulin Cut back dose of Lantus. Follow sliding scale. -GERD Prilosec -Chronic urine incontinence Ditropan -Primary osteoarthritis with bilateral sciatica [place] 7.5. -Anxiety depression BuSpar Full liquid diet. If no significant improvement in pain patient will probably require a EGD. 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 History of Any Multi-Drug Resistant Organisms: None Reported Past Surgical History: Appendectomy, Cholecystectomy, Heart Catheterization, Hysterectomy Additional Past Surgical History / Comment(s): 07/16/17 L endarterectomy with stent, previous R caratid endartectomy about 16yrs ago, bilateral feet bone spurs removed, Left total knee arthroplasty. Past Anesthesia/Blood Transfusion Reactions: No Reported Reaction Past Psychological History: Anxiety, Depression Smoking Status: Never smoker Past Alcohol Use History: None Reported Past Drug Use History: Marijuana
[2023-09-02 17:26] LABS: Glucose,Whole Blood 197 mg/dL (70-110)
[2023-09-02 20:47] LABS: Glucose,Whole Blood 206 mg/dL (70-110)
[2023-09-03 06:09] LABS: Glucose,Whole Blood 164 mg/dL (70-110)
--- NOTE | 2023-09-03 11:33 | P.CRDCN ---
History of Present Illness History of present illness: HISTORY OF PRESENT ILLNESS: This is a 68-year-old female with a past medical history significant for TIA, carotid stenosis, hypertension, hyperlipidemia, and diabetes. She does not follow with a rn orthopedic. We have been asked to see the patient in consultation for chest pain and EKG changes. Patient examined at the bedside. Patient initially presented to the hospital with a chief complaint of abdominal pain. She was found to have pancreatitis. She has been evaluated by GI service with no plans for endoscopy. Patient reports pain at the epigastrium. She denies SOB. Her blood pressures have been uncontrolled during hospitalization with SBP 160-200. DIAGNOSTICS: - EKG reveals sinus mechanism with left bundle branch block. - Laboratory data: WBC 16.7. Hemoglobin 13.6. Platelet count 224. Sodium 138. Potassium 4.4. BUN 13. Creatinine 0.59. Troponin negative x 3. Lipase 526. - Current home cardiac medications include lisinoprilhydrochlorothiazide 20- 12.5 mg twice a day, Plavix 75 mg daily, amlodipine 5 mg daily, Lipitor 80 mg at night. - Most recent echocardiogram obtained in 2018 reveals ejection fraction 55 to 60%, trace MR, trace TR. REVIEW OF SYSTEMS: At the time of my exam: CONSTITUTIONAL: Denies fever or chills. HEENT: Denies blurred vision, vision changes, or eye pain. Denies hemoptysis CARDIOVASCULAR: Denies chest pain. Denies orthopnea. Denies PND. Denies palpitations RESPIRATORY: Denies shortness of breath. GASTROINTESTINAL: Denies abdominal pain. Denies nausea or vomiting. HEMATOLOGIC: Denies bleeding disorders. GENITOURINARY: Denies any blood in urine. SKIN: Denies pruitis. Denies rash. PHYSICAL EXAM: VITAL SIGNS: Reviewed. GENERAL: Well-developed in no acute distress. HEENT: Head is normocephalic. Pupils are equal, round. Sclerae anicteric. Mucous membranes of the mouth are moist. Neck supple. No JVD or thyromegaly LUNGS: Respirations even and unlabored. Lungs essentially clear to auscultation bilaterally. HEART: Regular rate and rhythm. S1 and S2 heard. Systolic murmur ABDOMEN: Soft. Nondistended. Nontender. EXTREMITIES: Normal range of motion. No clubbing or cyanosis. Peripheral pulses intact. No lower extremity edema NEUROLOGIC: Awake and alert. Oriented x 3. ASSESSMENT: Epigastric discomfort Pancreatitis Hypertension, uncontrolled Abnormal EKG with left bundle branch block Hyperlipidemia Diabetes History of TIA, on plavix outpatient History of carotid stenosis with bilateral carotid endarterectomy and left carotid stenting PLAN: An acute coronary and has been ruled out Increase amlodipine to 10 mg daily. Continue to monitor BP. If BP remains elevated, consider clonidine patch Obtain 2D echo to assess cardiac structure and function No plans for inpatient stress testing at this time Patient may follow-up postdischarge with Dr. Hartley at the [place] office Continue to monitor patient for an additional 24 hours. Anticipate discharge home tomorrow if patient's blood pressure remains stable Nurse practitioner note has been reviewed by physician. Signing provider agrees with the documented findings, assessment, and plan of care documented by [employer] as a scribe. 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 History of Any Multi-Drug Resistant Organisms: None Reported Past Surgical History: Appendectomy, Cholecystectomy, Heart Catheterization, Hysterectomy Additional Past Surgical History / Comment(s): 07/16/17 L endarterectomy with stent, previous R caratid endartectomy about 16yrs ago, bilateral feet bone spurs removed, Left total knee arthroplasty. Past Anesthesia/Blood Transfusion Reactions: No Reported Reaction Past Psychological History: Anxiety, Depression Smoking Status: Never smoker Past Alcohol Use History: None Reported Past Drug Use History: Marijuana - Past Family History Father Family Medical History: No Reported History Additional Family Medical History / Comment(s): Father was very healthy and from "old age" at the age of 90yrs. Mother Family Medical History: Myocardial Infarction (AL) Additional Family Medical History / Comment(s): Mother of a AL at the age of 78yrs. Daughter(s) Family Medical History: Deep Vein Thrombosis (DVT) Additional Family Medical History / Comment(s): DVT IN LEG Medications and Allergies Home Medications Medication Instructions Recorded Confirmed Type Clopidogrel [Plavix] 75 mg PO DAILY 07/18/17 09/01/23 History busPIRone HCl [Buspar] 10 mg PO HS 07/18/17 09/01/23 History traZODone HCL [Desyrel] 100 - 200 mg PO HS 07/18/17 09/01/23 History Lisinopril-Hctz 20-12.5 mg 1 tab PO BID #60 tab 07/19/17 09/01/23 Rx [Zestoretic 20-12.5] Insulin Aspart [NovoLOG Flexpen] See Protocol SQ AC-TID 06/24/21 09/01/23 History Insulin Glargine,Hum.rec.anlog 50 unit SQ DAILY 06/24/21 09/01/23 History [Lantus Solostar Pen] Adalimumab [Humira(Cf) Pen] 40 mg SQ Q14D 09/01/23 09/01/23 History Albuterol Sulfate [Albuterol 2 puff PO RT-Q6H PRN 09/01/23 09/01/23 History Sulfate Hfa] Atorvastatin [Lipitor] 80 mg PO HS 09/01/23 09/01/23 History Celecoxib [CeleBREX] 200 mg PO BID 09/01/23 09/01/23 History Cetirizine HCl [Zyrtec] 10 mg PO DAILY PRN 09/01/23 09/01/23 History Gabapentin 600 mg PO TID 09/01/23 09/01/23 History HYDROcodone/APAP 7.5-325MG [[place] 1 tab PO BID PRN 09/01/23 09/01/23 History 7.5-325] Ketoconazole 2% Cream [Nizoral 2%] 1 applic TOPICAL BID 09/01/23 09/01/23 History Omeprazole [PriLOSEC] 40 mg PO DAILY 09/01/23 09/01/23 History Oxybutynin Xl [Ditropan XL] 5 mg PO DAILY 09/01/23 09/01/23 History Polymyxin B-Trimeth Sulf Ophth 1 drop BOTH EYES DAILY 09/01/23 09/01/23 History [Polytrim Opthalmic] amLODIPine [Norvasc] 5 mg PO DAILY 09/01/23 09/01/23 History busPIRone HCl [Buspar] 10 mg PO DAILY PRN 09/01/23 09/01/23 History Allergies Allergy/AdvReac Type Severity Reaction Status Date / Time No Known Allergies Allergy Verified 09/01/23 07:36 Physical Exam Vitals: Vital Signs Temp Pulse Resp BP Pulse Ox 09/03/23 08:00 97.9 F 69 16 162/70 95 09/03/23 03:23 98.6 F 76 18 180/56 94 L 09/02/23 20:20 66 17 09/02/23 19:42 98.6 F 66 17 207/68 94 L 09/02/23 15:00 97.7 F 62 16 192/53 93 L Intake and Output 09/02/23 09/03/23 09/03/23 22:59 06:59 14:59 Intake Total 240 Output Total 1050 725 Balance -810 -725 Intake: Oral 240 Output: Urine 1050 725 Other: Voiding Method External Catheter # Voids 1 Results 08/31/23 23:45 08/31/23 23:45 Lipids 09/02/23 Range/Units 11:13 Triglycerides 170.00 H (0.00-149.00) mg/dL Current Medications Generic Name Dose Route Start Last Admin Trade Name Freq PRN Reason Stop Dose Admin Acetaminophen 650 mg 09/01/23 02:33 Acetaminophen Tab 325 Mg Tab PO Q6HR PRN Mild Pain or Fever > 100.5 Hydrocodone Bitart/Acetaminophen 1 each 09/01/23 10:55 09/02/23 23:29 Hydrocodone/Apap 7.5-325mg 1 Each Tab PO 1 each BID PRN Administration Pain Albuterol Sulfate 2 puff 09/01/23 10:55 Albuterol Hfa Inhaler INHALATION RT-Q6H PRN Shortness Of Breath Amlodipine Besylate 5 mg 09/01/23 11:00 09/03/23 08:32 Amlodipine 5 Mg Tab PO 5 mg DAILY ALLISON Administration Buspirone HCl 10 mg 09/01/23 10:55 Buspirone Hcl 10 Mg Tab PO DAILY PRN Anxiety Buspirone HCl 10 mg 09/01/23 21:00 09/02/23 20:20 Buspirone Hcl 10 Mg Tab PO 10 mg HS ALLISON Administration Enoxaparin Sodium 40 mg 09/01/23 11:00 09/02/23 16:22 Enoxaparin 40 Mg/0.4 Ml Syringe SQ Not Given DAILY ALLISON Lisinopril/HCTZ 1 each 09/01/23 11:00 09/03/23 08:32 Lisinopril-Hctz 20-12.5 Mg 1 Each Tab PO 1 each BID ALLISON Administration Sodium Chloride 1,000 mls @ 75 mls/hr 09/01/23 02:45 09/02/23 20:03 Saline 0.9% IV Not Given .[id number] ALLISON Insulin Detemir 30 unit 09/01/23 11:15 09/03/23 06:31 Insulin Detemir (Levemir) 100 Unit/Ml Syr SQ 30 unit DAILY@0700 ALLISON Administration Ketorolac Tromethamine 15 mg 09/01/23 02:33 Ketorolac 15 Mg/Ml 1 Ml Vial IVP 09/04/23 02:34 Q6HR PRN Moderate Pain (Scale 4 to 6) Morphine Sulfate 4 mg 09/01/23 02:33 09/02/23 17:12 Morphine Sulfate 4 Mg/Ml Syringe IV 4 mg Q4HR PRN Administration Severe Pain (Scale 7 to 10) Naloxone HCl 0.2 mg 09/01/23 02:33 Naloxone 0.4 Mg/Ml 1 Ml Vial IV Q2M PRN Opioid Reversal Ondansetron HCl 4 mg 09/01/23 02:33 09/01/23 20:09 Ondansetron 4 Mg/2 Ml Vial IVP 4 mg Q8HR PRN Administration Nausea And Vomiting Oxybutynin Chloride 5 mg 09/01/23 11:00 09/03/23 08:32 Oxybutynin Xl 5 Mg Tab.Er.24 PO 5 mg DAILY ALLISON Administration Pantoprazole Sodium 40 mg 09/01/23 17:30 09/03/23 06:31 Pantoprazole 40 Mg Tablet PO 40 mg AC-BID ALLISON Administration Trazodone HCl 100 mg 09/01/23 03:45 09/02/23 20:20 Trazodone Hcl 100 Mg Tab PO 100 mg HS ALLISON Administration Intake and Output 09/02/23 09/03/23 09/03/23 22:59 06:59 14:59 Intake Total 240 Output Total 1050 725 Balance -810 -725 Intake: Oral 240 Output: Urine 1050 725 Other: Voiding Method External Catheter # Voids 1 08/31/23 23:45 08/31/23 23:45
[2023-09-03] MEDS: amLODIPine 5 MG TAB PO STA (12:03)
[2023-09-03 12:54] LABS: Glucose,Whole Blood 202 mg/dL (70-110)
[2023-09-03] MEDS: KETOROLAC 15 MG/ML 1 ML VIAL IVP PRN (14:21)
--- NOTE | 2023-09-03 14:53 | P.PN ---
Subjective Progress Note Date: 09/03/23 Principal diagnosis: Pancreatitis Pleasant 68-year-old female who was transferred from [facility] for complaints of abdominal pain and findings of elevated lipase concerning for pancreatitis. Patient was transferred to for GI evaluation. She states she is having upper abdominal pain radiating into her back that began 1 to 2 days ago. No previous history of pancreatitis. Past medical history includes hyperlipidemia, hypertension, diabetes mellitus, GERD, urinary incontinence, anxiety and depression. She takes Prilosec daily. Denies any history of ulcer. She reports no nausea or vomiting. Pain is in the epigastric region over the last 3 to 4 days duration. No previous history of pancreatitis, no history of alcohol abuse, she is status post cholecystectomy many years ago. No new medications. She denies taking NSAIDs other than baby aspirin, she is on P lavix. She denies taking Celebrex although it is listed in her home medications. CT abdomen pelvis from [facility] was reviewed with no acute findings. She had mildly elevated lipase of 515 with normal LFTs at [facility]., Repeat lipase 477. Total bilirubin 0.5 AST 32 ALT 19 alkal ine phosphatase 130. Patient states abdominal pain has improved some, she continues to have no nausea or vomiting. 09/02/2023 Patient was seen and examined today as a follow-up. She states pain has improved quite a bit. No nausea or vomiting. Mostly in the epigastric and right upper quadrant region. Today's lipase 526. 09/03/2023 Patient seen and examined today as a follow-up. States that her pain continues to improve, its mostly located in the epigastric and right upper quadrant region. She was put on a full liquid diet states that it kind of makes her nauseous. She has been afebrile. No difficulty swallowing. WILLIAM negative, triglycerides 170, IgG4 pending Objective - Vital Signs Vital signs: Vital Signs Temp 97.9 F 09/03/23 08:00 Pulse 69 09/03/23 08:00 Resp 16 09/03/23 08:00 BP 162/70 09/03/23 08:00 Pulse Ox 95 09/03/23 08:00 FiO2 Intake & Output 09/02/23 09/03/23 09/03/23 18:59 06:59 18:59 Intake Total 240 Output Total 600 1175 Balance -360 -1175 Intake: Oral 240 Output: Urine 600 1175 Other: Voiding Method External Catheter External Catheter # Voids 1 1 - Exam General appearance: The patient is alert, oriented, appears in no acute distress. HET: Head is normocephalic and atraumatic. Conjunctiva pink. Sclera anicteric. Neck: Supple without lymphadenopathy. Abdomen: Soft, obese, epigastric and right upper quadrant tenderness, nondistended. Extremities: Normal skin color and turgor. No pedal edema Skin: No rashes, no jaundice Neurological: No focal deficits. Alert and oriented. - Labs CBC & Chem 7: 08/31/23 23:45 08/31/23 23:45 Labs: Abnormal Lab Results - Last 24 Hours (Table) 09/02/23 09/02/23 09/02/23 Range/Units 11:13 11:13 12:24 POC Glucose (mg/dL) 236 H (70-110) mg/dL Triglycerides 170.00 H (0.00-149.00) mg/dL Lipase 526 H (23-300) U/L 09/02/23 09/02/23 09/03/23 Range/Units 17:24 20:46 06:08 POC Glucose (mg/dL) 197 H 206 H 164 H (70-110) mg/dL Triglycerides (0.00-149.00) mg/dL Lipase (23-300) U/L Assessment and Plan (1) Pancreatitis Narrative/Plan: 68-year-old female presenting from outside hospital for epigastric pain with mildly elevated lipase consistent with pancreatitis. Unclear etiology, no history of alcohol abuse, no recent medications, and patient is status post cholecystectomy many years ago. Will treat symptomatically at this time with IV fluids, pain medication, Protonix, advance diet as tolerated. Symptoms remain consistent with pancreatitis, continue with symptomatic and supportive care. No plans on endoscopic evaluation at this time. Current Visit: Yes Status: Acute Code(s): K85.90 - ACUTE PANCREATITIS WITHOUT NECROSIS OR INFECTION, UNSP SNOMED Code(s): 15204249 (2) Abdominal pain Current Visit: Yes Status: Acute Code(s): R10.9 - UNSPECIFIED ABDOMINAL PAIN SNOMED Code(s): 61052209 Plan: 1. Continue symptomatic and supportive care 2. Advance to low-fat diet, patient instructed to eat very small portions 2. Pain medication as needed 3. Antiemetics as needed 4. Protonix 40 mg daily 5. No indication or plans for endoscopic evaluation 6. IgG4, WILLIAM, triglycerides ordered 7. Anticipate discharge in the next 24 hours Thank you for this consultation, we will continue to follow. Dr. Raiza Hartley I agree with the dictator's note, documented as a scribe by Sadie Odonnell.
--- NOTE | 2023-09-03 16:29 | P.PN ---
Progress Note - Text Progress Note Date: 09/03/23 Chief Complaint: Epigastric pain This is a pleasant 68-year-old patient, follows with Dr. Pietro Gallegos. Chronic stable medical conditions include diabetes, fibromyalgia, hypertension, hyperlipidemia, obstructive sleep apnea, lower back pain with bilateral sciatica, insomnia, psoriasis anxiety depression. Patient presents with 3 to 4 days of upper abdominal and epigastric pain. Nausea. No fever no chills. No change in bowel pattern. Patient initially went to the [facility]. CT scan of the abdomen was unremarkable. Some elevation in lipase. Sent down here. Patient does take an aspirin. Patient had another colonoscopy in the past but no EGD. Still having significant pain. September 02: Admitted with epigastric pain. [place] to be acute pancreatitis. Though gastric pathology cannot be ruled out. This morning patient still having significant abdominal pain. Lipase at 526. Patient put on full liquid diet. Abdominal tenderness seems to be somewhat out of proportion to the lipase. Will follow-up with GI. August: Abdominal pain better. Was advanced to low-fat diet for lunch today. Cardiology following as patient had some nonspecific chest pain she describes mostly epigastric pain.. EKG showed left bundle timmy block. Troponin was negative. Blood pressure running high. Amlodipine added. Active Medications Acetaminophen (Acetaminophen Tab 325 Mg Tab) 650 mg PO Q6HR PRN PRN Reason: Mild Pain or Fever > 100.5 Hydrocodone Bitart/Acetaminophen (Hydrocodone/Apap 7.5-325mg 1 Each Tab) 1 each PO BID PRN PRN Reason: Pain Last Admin: 09/02/23 23:29 Dose: 1 each Albuterol Sulfate (Albuterol Hfa Inhaler) 2 puff INHALATION RT-Q6H PRN PRN Reason: Shortness Of Breath Amlodipine Besylate (Amlodipine 10 Mg Tab) 10 mg PO DAILY [facility] Buspirone HCl (Buspirone Hcl 10 Mg Tab) 10 mg PO DAILY PRN PRN Reason: Anxiety Buspirone HCl (Buspirone Hcl 10 Mg Tab) 10 mg PO HS [facility] Last Admin: 09/02/23 20:20 Dose: 10 mg Enoxaparin Sodium (Enoxaparin 40 Mg/0.4 Ml Syringe) 40 mg SQ DAILY [facility] Last Admin: 09/03/23 12:04 Dose: 40 mg Lisinopril/HCTZ (Lisinopril-Hctz 20-12.5 Mg 1 Each Tab) 1 each PO BID [facility] Last Admin: 09/03/23 08:32 Dose: 1 each Sodium Chloride (Saline 0.9%) 1,000 mls @ 75 mls/hr IV .[id number] [facility] Last Admin: 09/02/23 20:03 Dose: Not Given Insulin Detemir (Insulin Detemir (Levemir) 100 Unit/Ml Syr) 30 unit SQ DAILY@0700 [facility] Last Admin: 09/03/23 06:31 Dose: 30 unit Ketorolac Tromethamine (Ketorolac 15 Mg/Ml 1 Ml Vial) 15 mg IVP Q6HR PRN PRN Reason: Moderate Pain (Scale 4 to 6) Stop: 09/04/23 02:34 Last Admin: 09/03/23 14:21 Dose: 15 mg Morphine Sulfate (Morphine Sulfate 4 Mg/Ml Syringe) 4 mg IV Q4HR PRN PRN Reason: Severe Pain (Scale 7 to 10) Last Admin: 09/02/23 17:12 Dose: 4 mg Naloxone HCl (Naloxone 0.4 Mg/Ml 1 Ml Vial) 0.2 mg IV Q2M PRN PRN Reason: Opioid Reversal Ondansetron HCl (Ondansetron 4 Mg/2 Ml Vial) 4 mg IVP Q8HR PRN PRN Reason: Nausea And Vomiting Last Admin: 09/01/23 20:09 Dose: 4 mg Oxybutynin Chloride (Oxybutynin Xl 5 Mg Tab.Er.24) 5 mg PO DAILY [facility] Last Admin: 09/03/23 08:32 Dose: 5 mg Pantoprazole Sodium (Pantoprazole 40 Mg Tablet) 40 mg PO AC-BID [facility] Last Admin: 09/03/23 06:31 Dose: 40 mg Trazodone HCl (Trazodone Hcl 100 Mg Tab) 100 mg PO HS [facility] Last Admin: 09/02/23 20:20 Dose: 100 mg Social history: Lives alone in an apartment. Non-smoker. No alcohol. Takes marijuana at night for sleeping. Physical examination: VITAL SIGNS: 97.7, 62, 16, 192/53, 93% room air GENERAL: Reclining in bed EYES: Pupils equal. Conjunctiva airam l. HEENT: External appearance of nose and ears normal, oral cavity grossly normal. NECK: JVD not raised; masses not palpable. HEART: First and second heart sounds are normal; no edema. LUNGS: Respiratory rate normal; clear to auscultation. ABDOMEN: Soft, epigastric tenderness, no guarding rigidity, liver spleen not palpable, no masses palpable. PSYCH: Alert and oriented x3; mood and affect airam l. MUSCULOSKELETAL:No Clubbing/cyanosis;muscles-grossly intact INVESTIGATIONS, reviewed in the clinical context: September 02: Lipase 526 August 31: White count 6.7 hemoglobin 13.6 platelets 224 sodium 138 potassium 4.4 creatinine 0.59 Troponin I x 3 less than 0.012 Amylase [address] scan abdomen pelvis from [[place]]: Unremarkable Assessment plan: -Acute onset of epigastric pain for 3 to 4 days. Rather significantly tender. Nausea. No fever no chills. Some elevation of lipase. This could be acute pancreatitis. Patient also does take aspirin, Plavix, Celebrex. Underlying gastritis/peptic ulcer disease cannot be ruled out.: Better Being followed by GI. Advance to low fiber diet. -Anterior chest wall pain.: New diagnosis EKG showing left bundle timmy block. Troponin negative. Being followed by cardiology -Hyperlipidemia Lipitor -Essential hypertension Amlodipine Zestoretic -Left bundle timmy block -Diabetes mellitus type 2, chronically insulin Lantus. Follow sliding scale. -GERD Prilosec -Chronic urine incontinence Ditropan -Primary osteoarthritis with bilateral sciatica [place] 7.5. -Anxiety depression BuSpar Low fiber diet. For chest pain cardiology was consulted. Discussed with patient. 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 History of Any Multi-Drug Resistant Organisms: None Reported Past Surgical History: Appendectomy, Cholecystectomy, Heart Catheterization, Hysterectomy Additional Past Surgical History / Comment(s): 07/16/17 L endarterectomy with stent, previous R caratid endartectomy about 16yrs ago, bilateral feet bone spurs removed, Left total knee arthroplasty. Past Anesthesia/Blood Transfusion Reactions: No Reported Reaction Past Psychological History: Anxiety, Depression Smoking Status: Never smoker Past Alcohol Use History: None Reported Past Drug Use History: Marijuana
[2023-09-03 17:06] LABS: Glucose,Whole Blood 232 mg/dL (70-110)
--- NOTE | 2023-09-03 17:37 | CA ---
Transthoracic Echo Report Name: Radha Amanda Age: 68 Gender: F : 1955 Exam Date: 09/03/2023 11:37 Exam Location: [place] Echo Ht (in): 60 Wt (lb): 230 Ordering Physician: Amrita Wilhelm Attending/Referring Phys: Liner Worker Benita Bolanos RDCS Procedure CPT: Indications: LV function, CP Cardiac Hx: Technical Quality: Technically difficult study Contrast 1: Definity Total Dose (mL): 2 Contrast 2: Total Dose (mL): MEASUREMENTS (Male / Female) Normal Values 2D ECHO LV Diastolic Diameter PLAX 4.0 cm 4.2 - 5.9 / 3.9 - 5.3 cm LV Systolic Diameter PLAX 2.5 cm IVS Diastolic Thickness 1.6 cm 0.6 - 1.0 / 0.6 - 0.9 cm LVPW Diastolic Thickness 1.7 cm 0.6 - 1.0 / 0.6 - 0.9 cm LV Relative Wall Thickness 0.8 RV Internal Dim ED PLAX 2.7 cm LA Volume 101.4 cm??? 18 - 58 / 22 - 52 cm??? LA Volume Index 46.8 cm???/m??? 16 - 28 cm???/m??? M-MODE Aortic Root Diameter MM 2.5 cm LA Systolic Diameter MM 5.4 cm LA Ao Ratio MM 2.2 DOPPLER AV Peak Velocity 204.0 cm/s AV Peak Gradient 16.6 mmHg AV Mean Velocity 142.7 cm/s AV Mean Gradient 9.1 mmHg AV Velocity Time Integral 40.2 cm LVOT Peak Velocity 106.3 cm/s LVOT Peak Gradient 4.5 mmHg LVOT Velocity Time Integral 25.3 cm MV Area PHT 3.3 cm??? Mitral E Point Velocity 102.7 cm/s Mitral A Point Velocity 149.1 cm/s Mitral E to A Ratio 0.7 MV Deceleration Time 228.4 ms MV E' Velocity 4.8 cm/s Mitral E to MV E' Ratio 21.4 FINDINGS Left Ventricle Severely increased left ventricular wall thickness. Left ventricular cavity size normal. Normal left ventricular systolic function with no obvious regional wall motion abnormalities. Left ventricular ejection fraction is estimated at 55-60 %. Right Ventricle Normal right ventricular size and function. Right ventricular systolic pressure within normal limits. Right Atrium Right atrium not well visualized. Left Atrium Severely increased left atrial volume. Mildly increased left atrial area. Mitral Valve Structurally normal mitral valve. Mild mitral annular calcification. Mild mitral regurgitation. Aortic Valve Mild aortic stenosis with a peak gradient of 17 mmHg and a mean gradient of 9 mmHg. No aortic regurgitation. Tricuspid Valve Mild tricuspid regurgitation. Pulmonic Valve Structurally normal pulmonic valve. Trace pulmonic regurgitation. Pericardium No pericardial effusion. Aorta Normal size aortic root and proximal ascending aorta. CONCLUSIONS Normal LV function Mild mitral regurgitation Mild aortic stenosis Previewed by: Dr. Parrish Hartley MD (Electronically Signed) Final Date: 03 September 2023 17:37
[2023-09-03 20:17] LABS: Glucose,Whole Blood 275 mg/dL (70-110)
[2023-09-04 05:45] LABS: Glucose,Whole Blood 193 mg/dL (70-110)
[2023-09-04] MEDS: INSULIN DETEMIR (LEVEMIR) 100 UNIT/ML SYR SQ SCH (06:00)
[2023-09-04 08:15] VITALS: PULSE 69; RESP 19; TEMP 98.1
--- NOTE | 2023-09-04 08:39 | P.PN ---
Subjective Progress Note Date: 09/04/23 Principal diagnosis: Pancreatitis Pleasant 68-year-old female who was transferred from [facility] for complaints of abdominal pain and findings of elevated lipase concerning for pancreatitis. Patient was transferred to for GI evaluation. She states she is having upper abdominal pain radiating into her back that began 1 to 2 days ago. No previous history of pancreatitis. Past medical history includes hyperlipidemia, hypertension, diabetes mellitus, GERD, urinary incontinence, anxiety and depression. She takes Prilosec daily. Denies any history of ulcer. She reports no nausea or vomiting. Pain is in the epigastric region over the last 3 to 4 days duration. No previous history of pancreatitis, no history of alcohol abuse, she is status post cholecystectomy many years ago. No new medications. She denies taking NSAIDs other than baby aspirin, she is on P lavix. She denies taking Celebrex although it is listed in her home medications. CT abdomen pelvis from [facility] was reviewed with no acute findings. She had mildly elevated lipase of 515 with normal LFTs at [facility]., Repeat lipase 477. Total bilirubin 0.5 AST 32 ALT 19 alkal ine phosphatase 130. Patient states abdominal pain has improved some, she continues to have no nausea or vomiting. 09/02/2023 Patient was seen and examined today as a follow-up. She states pain has improved quite a bit. No nausea or vomiting. Mostly in the epigastric and right upper quadrant region. Today's lipase 526. 09/03/2023 Patient seen and examined today as a follow-up. States that her pain continues to improve, its mostly located in the epigastric and right upper quadrant region. She was put on a full liquid diet states that it kind of makes her nauseous. She has been afebrile. No difficulty swallowing. WILLIAM negative, triglycerides 170, IgG4 pending 09/04/2023 Patient seen and examined today as a follow-up. Abdominal pain continues to improve. She denies any nausea or vomiting. She is tolerating low-fat diet. She has been afebrile. No acute changes through the night. She has been up and ambulating. Has had normal bowel movements. Objective - Vital Signs Vital signs: Vital Signs Temp 98.0 F 09/04/23 02:00 Pulse 71 09/04/23 02:00 Resp 16 09/04/23 02:00 BP 173/54 03/01/24 02:00 Pulse Ox 95 09/04/23 02:00 FiO2 Intake & Output 09/03/23 09/03/23 09/04/23 06:59 18:59 06:59 Intake Total 716 Output Total 1175 Balance -1175 716 Intake: Oral 716 Output: Urine 1175 Other: Voiding Method External Catheter External Catheter # Voids 1 4 2 - Exam General appearance: The patient is alert, oriented, appears in no acute distress. HET: Head is normocephalic and atraumatic. Conjunctiva pink. Sclera anicteric. Neck: Supple without lymphadenopathy. Abdomen: Soft, obese, mild epigastric and right upper quadrant tenderness, nondistended. Extremities: Normal skin color and turgor. No pedal edema Skin: No rashes, no jaundice Neurological: No focal deficits. Alert and oriented. - Labs CBC & Chem 7: 08/31/23 23:45 08/31/23 23:45 Labs: Abnormal Lab Results - Last 24 Hours (Table) 09/03/23 09/03/23 09/03/23 Range/Units 12:52 17:05 20:15 POC Glucose (mg/dL) 202 H 232 H 275 H (70-110) mg/dL 09/04/23 Range/Units 05:43 POC Glucose (mg/dL) 193 H (70-110) mg/dL Assessment and Plan (1) Pancreatitis Narrative/Plan: 68-year-old female presenting from outside hospital for epigastric pain with mildly elevated lipase consistent with pancreatitis. Unclear etiology, no history of alcohol abuse, no recent medications, and patient is status post cholecystectomy many years ago. Will treat symptomatically at this time with IV fluids, pain medication, Protonix, advance diet as tolerated. Symptoms remain consistent with pancreatitis, continue with symptomatic and supportive care. No plans on endoscopic evaluation at this time. Current Visit: Yes Status: Acute Code(s): K85.90 - ACUTE PANCREATITIS WITHOUT NECROSIS OR INFECTION, UNSP SNOMED Code(s): 68621874 (2) Abdominal pain Current Visit: Yes Status: Acute Code(s): R10.9 - UNSPECIFIED ABDOMINAL PAIN SNOMED Code(s): 08110692 Plan: 1. Continue symptomatic and supportive care 2. Advance to low-fat diet, patient instructed to eat small portions 2. Pain medication as needed 3. Antiemetics as needed 4. Protonix 40 mg daily 5. No indication or plans for endoscopic evaluation 6. IgG4, WILLIAM, triglycerides ordered Thank you for this consultation, patient is cleared from gastroenterology. She can follow-up in the office in 2 weeks. We will sign off at this time. Dr. Raiza Hartley I agree with the dictator's note, documented as a scribe by Sadie Odonnell.
--- NOTE | 2023-09-04 08:49 | PN ---
PROGRESS NOTE HISTORY OF PRESENT ILLNESS: Radha is a 68-year-old lady, who is admitted to hospital with pancreatitis and we were consulted because of abnormal EKG. The patient has a left bundle branch block. Physical exam revealed a heart murmur. She went on to have an echo done yesterday that revealed normal LV systolic function with mild mitral regurgitation and mild aortic stenosis. Her primary problem throughout this hospitalization had been very poorly controlled blood pressures. This morning, blood pressure is still elevated at 173/54. PHYSICAL EXAMINATION: VITAL SIGNS: Heart rate is 70 beats per minute, blood pressure is 172/54, respiratory rate 16, O2 saturation is 95% on room air. NECK: There is no jugular venous distention. CHEST: Reveals good air entry bilaterally. HEART: Reveals first and second heart sounds. Ejection systolic murmur in the aortic area. ABDOMEN: Soft. EXTREMITIES: Did not reveal any edema. Peripheral pulses are felt. MEDICATIONS: The patient is currently on Norvasc 10 daily and Zestoretic. ASSESSMENT: 1. Uncontrolled hypertension. 2. Left bundle branch block. 3. Mild aortic stenosis. PLAN: I will add clonidine 0.2 mg three times a day for blood pressure control. MMODL / IJN: [id number] /
[2023-09-04] MEDS: amLODIPine 10 MG TAB PO SCH (09:03)
[2023-09-04] MEDS: cloNIDine HCL 0.2 MG TAB PO SCH (09:04)
[2023-09-04 11:35] VITALS: BP 160/47
[2023-09-04 12:37] LABS: Glucose,Whole Blood 215 mg/dL (70-110)
--- NOTE | 2023-09-04 21:35 | P.DS ---
Providers Date of admission: 09/01/23 02:36 Expected date of discharge: 09/04/23 Attending physician: Janusz Harley Consults: 09/01/23 12:41 Consult Physician Routine Consulting Provider: Betty Hartley Consult Reason/Comments: abd pain Do you want consulting provider notified?: Yes 09/03/23 10:13 Consult Physician Routine Consulting Provider: Parrish Hartley Consult Reason/Comments: EKG changes Do you want consulting provider notified?: Yes Primary care physician: Kam Rosy [facility] Course: Chief Complaint: Epigastric pain This is a pleasant 68-year-old patient, follows with Dr. Pietro Gallegos. Chronic stable medical conditions include diabetes, fibromyalgia, hypertension, hyperlipidemia, obstructive sleep apnea, lower back pain with bilateral sciatica, insomnia, psoriasis anxiety depression. Patient presents with 3 to 4 days of upper abdominal and epigastric pain. Nausea. No fever no chills. No change in bowel pattern. Patient initially went to the [facility]. CT scan of the abdomen was unremarkable. Some elevation in lipase. Sent down here. Patient does take an aspirin. Patient had another colonoscopy in the past but no EGD. Still having significant pain. September 02: Admitted with epigastric pain. [place] to be acute pancreatitis. Though gastric pathology cannot be ruled out. This morning patient still having significant abdominal pain. Lipase at 526. Patient put on full liquid diet. Abdominal tenderness seems to be somewhat out of proportion to the lipase. Will follow-up with GI. August: Abdominal pain better. Was advanced to low-fat diet for lunch today. Cardiology following as patient had some nonspecific chest pain she describes mostly epigastric pain.. EKG showed left bundle timmy block. Troponin was negative. Blood pressure running high. Amlodipine added. September 03: Eating well. Very slight epigastric discomfort. Patient to follow-up with Dr. Raiza Hartley outpatient. Blood pressure medication adjusted. Clonidine added by cardiology. Patient also to follow-up with cardiology outpatient. Discussed. Social history: Lives alone in an apartment. Non-smoker. No alcohol. Takes marijuana at night for sleeping. Physical examination: VITAL SIGNS: 98.1, 69, 19, 160/47, 96% room air GENERAL: Sitting up in bed, eating EYES: Pupils equal. Conjunctiva normal HEENT: External appearance of nose and ears normal, oral cavity grossly normal. NECK: JVD not raised; masses not palpable. HEART: First and second heart sounds are normal; no edema. LUNGS: Respiratory rate normal; clear to auscultation. ABDOMEN: Soft, no tenderness, no guarding rigidity, liver spleen not palpable, no masses palpable. PSYCH: Alert and oriented x3; mood and affect airam l. MUSCULOSKELETAL:No Clubbing/cyanosis;muscles-grossly intact INVESTIGATIONS, reviewed in the clinical context: September 02: Lipase 526 August 31: White count 6.7 hemoglobin 13.6 platelets 224 sodium 138 potassium 4.4 creatinine 0.59 Troponin I x 3 less than 0.012 Amylase [address] scan abdomen pelvis from [[place]]: Unremarkable Assessment plan: -Acute onset of epigastric pain for 3 to 4 days. Rather significantly tender. Nausea. No fever no chills. Some elevation of lipase. This could be acute pancreatitis. Patient also does take aspirin, Plavix, Celebrex. Underlying gastritis/peptic ulcer disease cannot be ruled out.: Better Being followed by GI. Tolerating regular diet. -Anterior chest wall pain.: EKG showing left bundle timmy block. Troponin negative. Follow-up outpatient with Dr. Hu Hartley -Hyperlipidemia Lipitor -Essential hypertension, uncontrolled Amlodipine Zestoretic. Add Catapres 0.1 mg 3 times daily -Left bundle timmy block -Diabetes mellitus type 2, chronically insulin Lantus. Follow sliding scale. -GERD Prilosec -Chronic urine incontinence Ditropan -Primary osteoarthritis with bilateral sciatica Portal 7.5. 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 History of Any Multi-Drug Resistant Organisms: None Reported Past Surgical History: Appendectomy, Cholecystectomy, Heart Catheterization, Hysterectomy Additional Past Surgical History / Comment(s): 07/16/17 L endarterectomy with stent, previous R caratid endartectomy about 16yrs ago, bilateral feet bone spurs removed, Left total knee arthroplasty. Past Anesthesia/Blood Transfusion Reactions: No Reported Reaction Past Psychological History: Anxiety, Depression Smoking Status: Never smoker Past Alcohol Use History: None Reported Past Drug Use History: Marijuana Plan - Discharge Summary Discharge Rx Participant: No New Discharge Prescriptions: New amLODIPine [Norvasc] 10 mg PO DAILY #30 tab cloNIDine HCL 0.1 mg PO TID #90 tablet Continue Clopidogrel [Plavix] 75 mg PO DAILY busPIRone HCl [Buspar] 10 mg PO HS traZODone HCL [Desyrel] 100 - 200 mg PO HS Lisinopril-Hctz 20-12.5 mg [Zestoretic 20-12.5] 1 tab PO BID #60 tab Insulin Aspart [NovoLOG Flexpen] See Protocol SQ AC-TID busPIRone HCl [Buspar] 10 mg PO DAILY PRN PRN Reason: Anxiety Cetirizine HCl [Zyrtec] 10 mg PO DAILY PRN PRN Reason: Allergy Symptoms Oxybutynin Xl [Ditropan XL] 5 mg PO DAILY Polymyxin B-Trimeth Sulf Ophth [Polytrim Opthalmic] 1 drop BOTH EYES DAILY Gabapentin 600 mg PO TID HYDROcodone/APAP 7.5-325MG [Portal 7.5-325] 1 tab PO BID PRN #6 tab PRN Reason: Pain Insulin Glargine,Hum.rec.anlog [Lantus Solostar Pen] 50 unit SQ DAILY Adalimumab [Humira(Cf) Pen] 40 mg SQ Q14D Atorvastatin [Lipitor] 80 mg PO HS Ketoconazole 2% Cream [Nizoral 2%] 1 applic TOPICAL BID Albuterol Sulfate [Albuterol Sulfate Hfa] 2 puff PO RT-Q6H PRN PRN Reason: Shortness Of Breath Changed Omeprazole [PriLOSEC] 40 mg PO BID #60 cap Discontinued amLODIPine [Norvasc] 5 mg PO DAILY Celecoxib [CeleBREX] 200 mg PO BID Discharge Medication List Clopidogrel [Plavix] 75 mg PO DAILY 07/18/17 [History] busPIRone HCl [Buspar] 10 mg PO HS 07/18/17 [History] traZODone HCL [Desyrel] 100 - 200 mg PO HS 07/18/17 [History] Lisinopril-Hctz 20-12.5 mg [Zestoretic 20-12.5] 1 tab PO BID #60 tab 07/19/17 [Rx] Insulin Aspart [NovoLOG Flexpen] See Protocol SQ AC-TID 06/24/21 [History] Insulin Glargine,Hum.rec.anlog [Lantus Solostar Pen] 50 unit SQ DAILY 06/24/21 [History] Adalimumab [Humira(Cf) Pen] 40 mg SQ Q14D 09/01/23 [History] Albuterol Sulfate [Albuterol Sulfate Hfa] 2 puff PO RT-Q6H PRN 09/01/23 [History] Atorvastatin [Lipitor] 80 mg PO HS 09/01/23 [History] Cetirizine HCl [Zyrtec] 10 mg PO DAILY PRN 09/01/23 [History] Gabapentin 600 mg PO TID 09/01/23 [History] Ketoconazole 2% Cream [Nizoral 2%] 1 applic TOPICAL BID 09/01/23 [History] Oxybutynin Xl [Ditropan XL] 5 mg PO DAILY 09/01/23 [History] Polymyxin B-Trimeth Sulf Ophth [Polytrim Opthalmic] 1 drop BOTH EYES DAILY 09/01/23 [History] busPIRone HCl [Buspar] 10 mg PO DAILY PRN 09/01/23 [History] HYDROcodone/APAP 7.5-325MG [Portal 7.5-325] 1 tab PO BID PRN #6 tab 09/04/23 [Rx] Omeprazole [PriLOSEC] 40 mg PO BID #60 cap 09/04/23 [Rx] amLODIPine [Norvasc] 10 mg PO DAILY #30 tab 09/04/23 [Rx] cloNIDine HCL 0.1 mg PO TID #90 tablet 09/04/23 [Rx] Follow up Appointment(s)/Referral(s): Betty Hartley MD [STAFF PHYSICIAN] - 2 Weeks (pt to call and schedule ) Kam Gallegos MD [Primary Care Provider] - 1-2 days Parrish Hartley MD [STAFF PHYSICIAN] - 09/17/23 3:00 pm Patient Instructions/Handouts: Pancreatitis (DC) Activity/Diet/Wound Care/Special Instructions: Low-fat diet Discharge Disposition: HOME SELF-CARE
== END 2023-09-04 13:55 | disposition home or self-care (01) ==
LOC: EC 21:59 → 6NMEDSUR 09-01 02:35 → OBSVTOIN 09-01 02:36 → INTOOBSV 09-01 02:36 → 6NMEDSUR 09-01 05:52 → UNDODISIN 09-04 13:55
PROVIDERS: ADMIT Hospitalist; ATTEND Hospitalist
DX: R10.13 Epigastric pain (principal); K85.90 Acute pancreatitis without necrosis or infection, unspecified; E11.9 Type 2 diabetes mellitus without complications; E78.5 Hyperlipidemia, unspecified; G47.33 Obstructive sleep apnea (adult) (pediatric); I10 Essential (primary) hypertension; F41.9 Anxiety disorder, unspecified; F32.A Depression, unspecified; I44.7 Left bundle-branch block, unspecified; K21.9 Gastro-esophageal reflux disease without esophagitis; R32 Unspecified urinary incontinence; M19.91 Primary osteoarthritis, unspecified site; M54.32 Sciatica, left side; M54.31 Sciatica, right side; Z86.73 Personal history of transient ischemic attack (TIA), and cerebral infarction without residual deficits; Z79.02 Long term (current) use of antithrombotics/antiplatelets; Z79.899 Other long term (current) drug therapy; Z79.4 Long term (current) use of insulin
CPT/HCPCS: 96376; 96361 ×3; 96372 ×3; 96375 ×2; 96374; 99285; 36415 ×2; 93005; 93306; 80053; 82150; 83690 ×2; 84478; 84484 ×2; 85025; 82787; 86038; G0378 ×4; J2270 ×2; J2405; J1650 ×3; Q9957; J1885